=== PATIENT | male | born 1970 | race Caucasian/White ===

== ENCOUNTER 2020-11-12 12:00 | Inpatient (IN) ==
[2020-11-12] MEDS ORDERED: Melatonin 3 MG TABLET PO PRN (15:04)
[2020-11-12] MEDS ORDERED: Ondansetron 4 MG/2 ML VIAL IVP PRN (15:04)
[2020-11-12] MEDS ORDERED: *HR* Dextrose 50 % in Water (Vial) 50 ML VIAL IVP PRN (15:12)
[2020-11-12] MEDS ORDERED: Dextrose Gel 15 GM/37.5 ML TUBE PO PRN ×2 (15:12)
[2020-11-12] MEDS ORDERED: D5% in Water 1,000 ML IVC PRN (15:12)
[2020-11-12] MEDS: Insulin LISPRO 300 UNITS/3 ML VIAL SUBQ SCH ×2 (16:29→20:48)
[2020-11-12] MEDS: Gabapentin 300 MG CAPSULE PO SCH (20:48)
[2020-11-12] MEDS: Insulin DETEMIR 100 UNIT/ML X5UNITS SUBQ SCH (20:49)
[2020-11-12] MEDS: Benzonatate 100 MG CAPSULE PO PRN (21:58)
[2020-11-12] MEDS ORDERED: Furosemide 20 MG/2 ML VIAL IVP ONE (23:32)
[2020-11-13] MEDS: Insulin LISPRO 300 UNITS/3 ML VIAL SUBQ SCH ×4 (06:25→20:45)
[2020-11-13] MEDS: *HR* Enoxaparin 40 MG/0.4 ML SYRINGE SQ SCH (06:27)
[2020-11-13 06:33] LABS: Hematocrit 45.2 % (37.5-50.1); Hemoglobin 14.6 g/dL (12.9-16.9); Mean Corpuscular HGB Conc 32.3 g/dL (31.6-35.5); Mean Corpuscular Hemoglobin 26.9 pg (28.0-33.3); Mean Corpuscular Volume 83.2 fL (83.0-100.0); Mean Platelet Volume 10.3 fL (9.4-12.4); Platelet Count 249 K/mcL (140-400); Red Blood Count 5.43 M/mcL (4.19-5.50); Red Cell Distribution Width 14.4 % (11.5-14.5); White Blood Count 5.8 K/mcL (4.3-11.1)
[2020-11-13 06:58] LABS: BUN/Creatinine Ratio 21 (6-26); Blood Urea Nitrogen 26 mg/dL (6-20); Carbon Dioxide 24 mEq/L (23-29); Chloride 99 mEq/L (98-107); Glucose 149 mg/dL (70-105); Lactate Dehydrogenase 429 Units/L (140-271); Magnesium 1.9 mg/dL (1.6-2.6); Osmolality,Calculated 286 (280-300); Potassium 4.6 mEq/L (3.5-5.1); Sodium 134 mEq/L (136-145); eGFR For African Americans > 60 (> 60); eGFR For Non-African Americans > 60 (> 60)
[2020-11-13 07:10] LABS: Ferritin 317 ng/mL (20-250)
[2020-11-13] MEDS: Gabapentin 300 MG CAPSULE PO SCH ×3 (08:18→20:44)
[2020-11-13] MEDS: Acetaminophen 325 MG TABLET PO PRN ×2 (08:19→20:44)
[2020-11-13] MEDS: Aspirin 81 MG TAB.CHEW PO SCH (08:19)
[2020-11-13 08:28] LABS: C-Reactive Protein 76 mg/L (Less than 10)
[2020-11-13] MEDS ORDERED: Dexamethasone Sodium Phos/PF 10 MG/ML VIAL IVP SCH ×2 (09:00)
[2020-11-13] MEDS ORDERED: hydroCHLOROthiazide 25 MG TABLET PO SCH (09:00)
[2020-11-13 10:10] LABS: Estimated Average Glucose 217 mg/dl; Hemoglobin A1C 9.2 %
[2020-11-13] MEDS ORDERED: Remdesivir 200 MG in 0.9 % Sodium Chloride 100 ML IVPB ONE (12:24)
[2020-11-13 13:06] LABS: Alanine Aminotransferase 24 Units/L (7-52); Albumin 3.7 g/dL (3.5-5.7); Albumin/Globulin Ratio 1.1 (1.1-2.2); Alkaline Phosphatase 52 Units/L (34-104); Aspartate Amino Transferase 34 Units/L (13-39); Bilirubin,Indirect 0.3 mg/dL (0.0-1.0); Bilirubin,Total 0.3 mg/dL (0.3-1.0); Globulin 3.5 g/dL (2.4-3.5); Total Protein 7.2 g/dL (6.4-8.9)
[2020-11-13] MEDS: Furosemide 20 MG/2 ML VIAL IVP SCH ×2 (13:07→20:44)
[2020-11-13] MEDS ORDERED: TOCILIZUMAB 810 MG in 0.9 % Sodium Chloride 100 ML IVPB ONE (16:30)
[2020-11-13] MEDS: Benzonatate 100 MG CAPSULE PO PRN (20:44)
[2020-11-13] MEDS: Insulin DETEMIR 100 UNIT/ML X5UNITS SUBQ SCH (20:45)
[2020-11-14 01:40] LABS: Hematocrit 44.5 % (37.5-50.1); Hemoglobin 14.4 g/dL (12.9-16.9); Mean Corpuscular HGB Conc 32.4 g/dL (31.6-35.5); Mean Corpuscular Hemoglobin 27.3 pg (28.0-33.3); Mean Corpuscular Volume 84.3 fL (83.0-100.0); Mean Platelet Volume 10.4 fL (9.4-12.4); Platelet Count 260 K/mcL (140-400); Red Blood Count 5.28 M/mcL (4.19-5.50); Red Cell Distribution Width 14.3 % (11.5-14.5); White Blood Count 2.5 K/mcL (4.3-11.1)
[2020-11-14 02:00] LABS: Alanine Aminotransferase 25 Units/L (7-52); Albumin 3.6 g/dL (3.5-5.7); Alkaline Phosphatase 53 Units/L (34-104); Aspartate Amino Transferase 26 Units/L (13-39); BUN/Creatinine Ratio 32 (6-26); Bilirubin,Total 0.3 mg/dL (0.3-1.0); Blood Urea Nitrogen 42 mg/dL (6-20); Carbon Dioxide 26 mEq/L (23-29); Chloride 98 mEq/L (98-107); Globulin 3.5 g/dL (2.4-3.5); Glucose 296 mg/dL (70-105); Osmolality,Calculated 299 (280-300); Sodium 134 mEq/L (136-145); Total Protein 7.1 g/dL (6.4-8.9); eGFR For African Americans > 60 (> 60); eGFR For Non-African Americans 58 (> 60)
[2020-11-14] MEDS: *HR* Enoxaparin 40 MG/0.4 ML SYRINGE SQ SCH (06:26)
[2020-11-14] MEDS: Insulin LISPRO 300 UNITS/3 ML VIAL SUBQ SCH ×5 (08:27→21:06)
[2020-11-14] MEDS: Gabapentin 300 MG CAPSULE PO SCH ×3 (09:44→21:06)
[2020-11-14] MEDS: Cholecalciferol (D-3) 1,000 UNIT (25MCG) TABLET PO SCH (09:44)
[2020-11-14] MEDS: Aspirin 81 MG TAB.CHEW PO SCH (09:44)
[2020-11-14] MEDS: Insulin DETEMIR 100 UNIT/ML X5UNITS SUBQ SCH ×2 (09:46→21:06)
[2020-11-14 10:26] LABS: VBG HCO3 28 mEq/L (21-27); VBG PCO2 50 mmHg (41-51); VBG PH 7.36 pH Units (7.32-7.42); VBG PO2 50 mmHg (25-50)
[2020-11-14] MEDS: Remdesivir 100 MG in 0.9 % Sodium Chloride 100 ML IVPB SCH (12:49)
[2020-11-14] MEDS: Benzonatate 100 MG CAPSULE PO PRN (22:59)
[2020-11-15] MEDS: *HR* Enoxaparin 40 MG/0.4 ML SYRINGE SQ SCH (05:25)
[2020-11-15 07:12] LABS: Hematocrit 46.4 % (37.5-50.1); Hemoglobin 14.5 g/dL (12.9-16.9); Mean Corpuscular HGB Conc 31.3 g/dL (31.6-35.5); Mean Corpuscular Hemoglobin 26.4 pg (28.0-33.3); Mean Corpuscular Volume 84.5 fL (83.0-100.0); Mean Platelet Volume 10.5 fL (9.4-12.4); Platelet Count 298 K/mcL (140-400); Red Blood Count 5.49 M/mcL (4.19-5.50); Red Cell Distribution Width 13.9 % (11.5-14.5); White Blood Count 3.7 K/mcL (4.3-11.1)
[2020-11-15] MEDS: Insulin LISPRO 300 UNITS/3 ML VIAL SUBQ SCH ×4 (08:39→22:44)
[2020-11-15] MEDS: Aspirin 81 MG TAB.CHEW PO SCH (09:48)
[2020-11-15] MEDS: Cholecalciferol (D-3) 1,000 UNIT (25MCG) TABLET PO SCH (09:48)
[2020-11-15] MEDS: Gabapentin 300 MG CAPSULE PO SCH ×3 (09:48→22:44)
[2020-11-15] MEDS: Insulin DETEMIR 100 UNIT/ML X5UNITS SUBQ SCH (10:01)
[2020-11-15 10:27] LABS: Alanine Aminotransferase 26 Units/L (7-52); Albumin 3.6 g/dL (3.5-5.7); Albumin/Globulin Ratio 1.1 (1.1-2.2); Alkaline Phosphatase 55 Units/L (34-104); Aspartate Amino Transferase 26 Units/L (13-39); BUN/Creatinine Ratio 51 (6-26); Bilirubin,Total 0.4 mg/dL (0.3-1.0); Blood Urea Nitrogen 55 mg/dL (6-20); Calcium 9.1 mg/dL (8.6-10.3); Carbon Dioxide 24 mEq/L (23-29); Chloride 100 mEq/L (98-107); Globulin 3.3 g/dL (2.4-3.5); Glucose 268 mg/dL (70-105); Osmolality,Calculated 303 (280-300); Potassium 5.2 mEq/L (3.5-5.1); Sodium 134 mEq/L (136-145); Total Protein 6.9 g/dL (6.4-8.9); eGFR For African Americans > 60 (> 60); eGFR For Non-African Americans > 60 (> 60)
[2020-11-15] MEDS: Remdesivir 100 MG in 0.9 % Sodium Chloride 100 ML IVPB SCH (14:12)
[2020-11-15] MEDS ORDERED: Insulin DETEMIR 100 UNIT/ML X5UNITS SUBQ SCH (16:45)
[2020-11-16] MEDS: *HR* Enoxaparin 40 MG/0.4 ML SYRINGE SQ SCH (05:35)
[2020-11-16] MEDS: Insulin LISPRO 300 UNITS/3 ML VIAL SUBQ SCH ×4 (09:00→22:30)
[2020-11-16] MEDS: Cholecalciferol (D-3) 1,000 UNIT (25MCG) TABLET PO SCH (10:43)
[2020-11-16] MEDS: Gabapentin 300 MG CAPSULE PO SCH ×3 (10:44→22:31)
[2020-11-16] MEDS: Aspirin 81 MG TAB.CHEW PO SCH (10:44)
[2020-11-16] MEDS: Insulin DETEMIR 100 UNIT/ML X5UNITS SUBQ SCH ×2 (10:45→22:30)
[2020-11-16 12:30] LABS: Alanine Aminotransferase 29 Units/L (7-52); Albumin 3.5 g/dL (3.5-5.7); Albumin/Globulin Ratio 1.2 (1.1-2.2); Alkaline Phosphatase 62 Units/L (34-104); Aspartate Amino Transferase 22 Units/L (13-39); BUN/Creatinine Ratio 36 (6-26); Bilirubin,Direct 0.1 mg/dL (0.0-0.2); Bilirubin,Indirect 0.2 mg/dL (0.0-1.0); Bilirubin,Total 0.3 mg/dL (0.3-1.0); Blood Urea Nitrogen 45 mg/dL (6-20); Calcium 9.4 mg/dL (8.6-10.3); Carbon Dioxide 30 mEq/L (23-29); Chloride 100 mEq/L (98-107); Globulin 2.9 g/dL (2.4-3.5); Glucose 229 mg/dL (70-105); Osmolality,Calculated 301 (280-300); Potassium 5.3 mEq/L (3.5-5.1); Sodium 136 mEq/L (136-145); Total Protein 6.4 g/dL (6.4-8.9); eGFR For African Americans > 60 (> 60); eGFR For Non-African Americans > 60 (> 60)
[2020-11-16] MEDS: Remdesivir 100 MG in 0.9 % Sodium Chloride 100 ML IVPB SCH (13:51)
[2020-11-16] MEDS ORDERED: Insulin LISPRO 300 UNITS/3 ML VIAL SUBQ ONE (20:38)
[2020-11-17] MEDS: *HR* Enoxaparin 40 MG/0.4 ML SYRINGE SQ SCH (05:43)
[2020-11-17] MEDS: Insulin LISPRO 300 UNITS/3 ML VIAL SUBQ SCH ×4 (09:36→22:07)
[2020-11-17] MEDS: Gabapentin 300 MG CAPSULE PO SCH ×3 (09:38→22:07)
[2020-11-17] MEDS: Aspirin 81 MG TAB.CHEW PO SCH (09:38)
[2020-11-17] MEDS: Insulin DETEMIR 100 UNIT/ML X5UNITS SUBQ SCH ×2 (09:39→22:07)
[2020-11-17] MEDS: Cholecalciferol (D-3) 1,000 UNIT (25MCG) TABLET PO SCH (09:40)
[2020-11-17] MEDS ORDERED: Furosemide 40 MG/4 ML VIAL IVP SCH (11:00)
[2020-11-17] MEDS: Remdesivir 100 MG in 0.9 % Sodium Chloride 100 ML IVPB SCH (12:16)
[2020-11-17 12:36] LABS: Alanine Aminotransferase 29 Units/L (7-52); Albumin 3.4 g/dL (3.5-5.7); Albumin/Globulin Ratio 1.3 (1.1-2.2); Alkaline Phosphatase 75 Units/L (34-104); Aspartate Amino Transferase 21 Units/L (13-39); BUN/Creatinine Ratio 39 (6-26); Bilirubin,Direct 0.1 mg/dL (0.0-0.2); Bilirubin,Indirect 0.3 mg/dL (0.0-1.0); Bilirubin,Total 0.4 mg/dL (0.3-1.0); Blood Urea Nitrogen 43 mg/dL (6-20); Calcium 9.3 mg/dL (8.6-10.3); Carbon Dioxide 30 mEq/L (23-29); Chloride 101 mEq/L (98-107); Globulin 2.7 g/dL (2.4-3.5); Glucose 258 mg/dL (70-105); Osmolality,Calculated 302 (280-300); Potassium 4.9 mEq/L (3.5-5.1); Sodium 136 mEq/L (136-145); Total Protein 6.1 g/dL (6.4-8.9); eGFR For African Americans > 60 (> 60); eGFR For Non-African Americans > 60 (> 60)
[2020-11-17] MEDS: *HR* Enoxaparin 100 MG/ML SYRINGE SQ SCH (16:51)
[2020-11-18] MEDS: *HR* Enoxaparin 100 MG/ML SYRINGE SQ SCH ×2 (06:16→16:23)
[2020-11-18 08:01] LABS: Hemoglobin 15.8 g/dL (12.9-16.9); Mean Corpuscular HGB Conc 32.9 g/dL (31.6-35.5); Mean Corpuscular Hemoglobin 27.4 pg (28.0-33.3); Mean Corpuscular Volume 83.3 fL (83.0-100.0); Mean Platelet Volume 10.4 fL (9.4-12.4); Platelet Count 332 K/mcL (140-400); Red Blood Count 5.76 M/mcL (4.19-5.50); Red Cell Distribution Width 13.4 % (11.5-14.5)
[2020-11-18] MEDS ORDERED: Isovue-370 500 ML BOTTLE IVP ONE (08:17)
[2020-11-18 08:23] LABS: Alanine Aminotransferase 30 Units/L (7-52); Albumin 3.4 g/dL (3.5-5.7); Albumin/Globulin Ratio 1.2 (1.1-2.2); Alkaline Phosphatase 84 Units/L (34-104); Aspartate Amino Transferase 19 Units/L (13-39); BUN/Creatinine Ratio 41 (6-26); Bilirubin,Direct 0.1 mg/dL (0.0-0.2); Bilirubin,Indirect 0.3 mg/dL (0.0-1.0); Bilirubin,Total 0.4 mg/dL (0.3-1.0); Blood Urea Nitrogen 43 mg/dL (6-20); Calcium 9.4 mg/dL (8.6-10.3); Carbon Dioxide 26 mEq/L (23-29); Chloride 101 mEq/L (98-107); Globulin 2.8 g/dL (2.4-3.5); Glucose 158 mg/dL (70-105); Magnesium 2.1 mg/dL (1.6-2.6); Osmolality,Calculated 294 (280-300); Sodium 135 mEq/L (136-145); Total Protein 6.2 g/dL (6.4-8.9); eGFR For African Americans > 60 (> 60); eGFR For Non-African Americans > 60 (> 60)
[2020-11-18 09:02] LABS: White Blood Count 6.3 K/mcL (4.3-11.1)
[2020-11-18] MEDS: Dexamethasone Sodium Phos/PF 10 MG/ML VIAL IVP SCH (10:22)
[2020-11-18] MEDS: Aspirin 81 MG TAB.CHEW PO SCH (10:22)
[2020-11-18] MEDS: Cholecalciferol (D-3) 1,000 UNIT (25MCG) TABLET PO SCH (10:22)
[2020-11-18] MEDS: amLODIPine 5 MG TABLET PO SCH (10:22)
[2020-11-18] MEDS: Gabapentin 300 MG CAPSULE PO SCH ×3 (10:22→20:48)
[2020-11-18] MEDS: Insulin DETEMIR 100 UNIT/ML X5UNITS SUBQ SCH ×2 (10:35→21:02)
[2020-11-18] MEDS: Insulin LISPRO 300 UNITS/3 ML VIAL SUBQ SCH ×4 (10:36→21:02)
[2020-11-18] MEDS: Benzonatate 100 MG CAPSULE PO PRN (20:48)
[2020-11-19] MEDS: *HR* Enoxaparin 100 MG/ML SYRINGE SQ SCH ×2 (05:39→18:16)
[2020-11-19] MEDS: Insulin LISPRO 300 UNITS/3 ML VIAL SUBQ SCH ×4 (08:05→21:04)
[2020-11-19] MEDS: Aspirin 81 MG TAB.CHEW PO SCH (09:03)
[2020-11-19] MEDS: Insulin DETEMIR 100 UNIT/ML X5UNITS SUBQ SCH ×2 (09:03→21:05)
[2020-11-19] MEDS: Gabapentin 300 MG CAPSULE PO SCH ×3 (09:03→21:05)
[2020-11-19] MEDS: amLODIPine 5 MG TABLET PO SCH (09:03)
[2020-11-19] MEDS: Cholecalciferol (D-3) 1,000 UNIT (25MCG) TABLET PO SCH (09:04)
[2020-11-19] MEDS: Dexamethasone Sodium Phos/PF 10 MG/ML VIAL IVP SCH (09:04)
[2020-11-19] MEDS ORDERED: Chloraseptic Spray 177 ML BOTTLE MM PRN (11:17)
[2020-11-19] MEDS: Furosemide 20 MG/2 ML VIAL IVP SCH (13:24)
[2020-11-19] MEDS: Saline Nasal Spray 44 ML BOTTLE NS PRN (13:25)
[2020-11-20 01:24] LABS: Hematocrit 48.9 % (37.5-50.1); Hemoglobin 16.2 g/dL (12.9-16.9); Mean Corpuscular HGB Conc 33.1 g/dL (31.6-35.5); Mean Corpuscular Hemoglobin 26.9 pg (28.0-33.3); Mean Corpuscular Volume 81.2 fL (83.0-100.0); Mean Platelet Volume 10.2 fL (9.4-12.4); Platelet Count 395 K/mcL (140-400); Red Blood Count 6.02 M/mcL (4.19-5.50); Red Cell Distribution Width 13.3 % (11.5-14.5); White Blood Count 7.9 K/mcL (4.3-11.1)
[2020-11-20 01:44] LABS: BUN/Creatinine Ratio 38 (6-26); Blood Urea Nitrogen 36 mg/dL (6-20); Carbon Dioxide 21 mEq/L (23-29); Chloride 100 mEq/L (98-107); Glucose 207 mg/dL (70-105); Magnesium 1.9 mg/dL (1.6-2.6); Osmolality,Calculated 288 (280-300); Phosphorous 4.2 mg/dL (2.7-4.5); Potassium 4.3 mEq/L (3.5-5.1); Sodium 132 mEq/L (136-145); eGFR For African Americans > 60 (> 60); eGFR For Non-African Americans > 60 (> 60)
[2020-11-20] MEDS: *HR* Enoxaparin 100 MG/ML SYRINGE SQ SCH ×2 (04:53→17:31)
[2020-11-20] MEDS: Insulin LISPRO 300 UNITS/3 ML VIAL SUBQ SCH ×4 (08:07→20:51)
[2020-11-20] MEDS: Dexamethasone Sodium Phos/PF 10 MG/ML VIAL IVP SCH (08:11)
[2020-11-20] MEDS: Furosemide 20 MG/2 ML VIAL IVP SCH (08:12)
[2020-11-20] MEDS: Insulin DETEMIR 100 UNIT/ML X5UNITS SUBQ SCH ×2 (08:12→20:51)
[2020-11-20] MEDS: Gabapentin 300 MG CAPSULE PO SCH ×3 (08:12→20:49)
[2020-11-20] MEDS: amLODIPine 5 MG TABLET PO SCH (08:12)
[2020-11-20] MEDS: Aspirin 81 MG TAB.CHEW PO SCH (08:12)
[2020-11-20] MEDS: Cholecalciferol (D-3) 1,000 UNIT (25MCG) TABLET PO SCH (08:12)
[2020-11-20] MEDS: Lidocaine Viscous Oral Soln 15 ML SOLUTION MM PRN ×2 (11:22→16:48)
[2020-11-20] MEDS: Menthol 1 EACH LOZENGE PO PRN (19:32)
[2020-11-21] MEDS: Menthol 1 EACH LOZENGE PO PRN ×4 (00:12→08:11)
[2020-11-21] MEDS: *HR* Enoxaparin 100 MG/ML SYRINGE SQ SCH ×2 (05:11→18:17)
[2020-11-21] MEDS: Insulin DETEMIR 100 UNIT/ML X5UNITS SUBQ SCH ×2 (07:53→20:57)
[2020-11-21] MEDS: Furosemide 20 MG/2 ML VIAL IVP SCH (07:54)
[2020-11-21] MEDS: Gabapentin 300 MG CAPSULE PO SCH ×3 (07:55→20:57)
[2020-11-21] MEDS: amLODIPine 5 MG TABLET PO SCH (07:55)
[2020-11-21] MEDS: Dexamethasone Sodium Phos/PF 10 MG/ML VIAL IVP SCH (07:55)
[2020-11-21] MEDS: Aspirin 81 MG TAB.CHEW PO SCH (07:55)
[2020-11-21] MEDS: Cholecalciferol (D-3) 1,000 UNIT (25MCG) TABLET PO SCH (07:56)
[2020-11-21] MEDS: Insulin LISPRO 300 UNITS/3 ML VIAL SUBQ SCH ×4 (07:56→20:57)
[2020-11-21] MEDS ORDERED: Isovue-370 500 ML BOTTLE IVP ONE (22:32)
[2020-11-21] MEDS ORDERED: Oxymetazoline Nasal SPRAY BOTTLE 15ML NS PRN (23:14)
[2020-11-21] MEDS ORDERED: Lido/Epi/Tetra Gel 2 ML SYRINGE TP ONE (23:31)
[2020-11-22] MEDS: *HR* Enoxaparin 100 MG/ML SYRINGE SQ SCH ×2 (05:09→18:00)
[2020-11-22] MEDS: Insulin LISPRO 300 UNITS/3 ML VIAL SUBQ SCH ×4 (07:27→20:00)
[2020-11-22 08:12] LABS: BUN/Creatinine Ratio 44 (6-26); Blood Urea Nitrogen 41 mg/dL (6-20); Calcium 9.2 mg/dL (8.6-10.3); Carbon Dioxide 25 mEq/L (23-29); Chloride 103 mEq/L (98-107); Glucose 84 mg/dL (70-105); Hemoglobin 16.4 g/dL (12.9-16.9); Magnesium 2.3 mg/dL (1.6-2.6); Mean Corpuscular HGB Conc 31.5 g/dL (31.6-35.5); Mean Corpuscular Volume 82.5 fL (83.0-100.0); Mean Platelet Volume 10.2 fL (9.4-12.4); Osmolality,Calculated 291 (280-300); Platelet Count 320 K/mcL (140-400); Potassium 4.4 mEq/L (3.5-5.1); Red Cell Distribution Width 13.6 % (11.5-14.5); Sodium 136 mEq/L (136-145); White Blood Count 8.2 K/mcL (4.3-11.1); eGFR For African Americans > 60 (> 60); eGFR For Non-African Americans > 60 (> 60)
[2020-11-22] MEDS: Gabapentin 300 MG CAPSULE PO SCH ×3 (08:25→20:07)
[2020-11-22] MEDS: Aspirin 81 MG TAB.CHEW PO SCH (08:25)
[2020-11-22] MEDS: Furosemide 20 MG/2 ML VIAL IVP SCH (08:26)
[2020-11-22] MEDS: Dexamethasone Sodium Phos/PF 10 MG/ML VIAL IVP SCH (08:26)
[2020-11-22] MEDS: amLODIPine 5 MG TABLET PO SCH (08:26)
[2020-11-22] MEDS: Cholecalciferol (D-3) 1,000 UNIT (25MCG) TABLET PO SCH (08:27)
[2020-11-22] MEDS: Insulin DETEMIR 100 UNIT/ML X5UNITS SUBQ SCH ×2 (08:31→20:00)
[2020-11-23] MEDS: *HR* Enoxaparin 100 MG/ML SYRINGE SQ SCH ×2 (06:44→16:40)
[2020-11-23] MEDS: Insulin LISPRO 300 UNITS/3 ML VIAL SUBQ SCH ×5 (08:22→20:16)
[2020-11-23] MEDS: Cholecalciferol (D-3) 1,000 UNIT (25MCG) TABLET PO SCH (08:27)
[2020-11-23] MEDS: amLODIPine 5 MG TABLET PO SCH (08:27)
[2020-11-23] MEDS: Dexamethasone Sodium Phos/PF 10 MG/ML VIAL IVP SCH (08:28)
[2020-11-23] MEDS: Gabapentin 300 MG CAPSULE PO SCH ×3 (08:28→20:17)
[2020-11-23] MEDS: Furosemide 20 MG/2 ML VIAL IVP SCH (08:28)
[2020-11-23] MEDS: Insulin DETEMIR 100 UNIT/ML X5UNITS SUBQ SCH ×2 (08:31→20:16)
[2020-11-23] MEDS: Benzonatate 100 MG CAPSULE PO PRN (16:49)
[2020-11-24] MEDS: *HR* Enoxaparin 100 MG/ML SYRINGE SQ SCH ×2 (06:16→16:15)
[2020-11-24] MEDS: Insulin LISPRO 300 UNITS/3 ML VIAL SUBQ SCH ×3 (09:08→16:22)
[2020-11-24] MEDS: Gabapentin 300 MG CAPSULE PO SCH ×3 (09:21→21:25)
[2020-11-24] MEDS: Dexamethasone Sodium Phos/PF 10 MG/ML VIAL IVP SCH (09:21)
[2020-11-24] MEDS: Cholecalciferol (D-3) 1,000 UNIT (25MCG) TABLET PO SCH (09:21)
[2020-11-24] MEDS: amLODIPine 5 MG TABLET PO SCH (09:21)
[2020-11-24] MEDS: Furosemide 20 MG/2 ML VIAL IVP SCH (09:22)
[2020-11-24] MEDS: Insulin DETEMIR 100 UNIT/ML X5UNITS SUBQ SCH ×2 (09:50→21:25)
[2020-11-24] MEDS: Benzonatate 100 MG CAPSULE PO PRN (16:26)
[2020-11-24] MEDS: Saline Nasal Spray 44 ML BOTTLE NS PRN (21:24)
[2020-11-25 03:13] LABS: Hematocrit 45.4 % (37.5-50.1); Mean Corpuscular HGB Conc 32.6 g/dL (31.6-35.5); Mean Corpuscular Hemoglobin 26.5 pg (28.0-33.3); Mean Corpuscular Volume 81.4 fL (83.0-100.0); Mean Platelet Volume 10.6 fL (9.4-12.4); Platelet Count 271 K/mcL (140-400); Red Blood Count 5.58 M/mcL (4.19-5.50); Red Cell Distribution Width 13.2 % (11.5-14.5); White Blood Count 7.2 K/mcL (4.3-11.1)
[2020-11-25 03:19] LABS: Hemoglobin 14.8 g/dL (12.9-16.9)
[2020-11-25 03:26] LABS: VBG HCO3 26 mEq/L (21-27); VBG PCO2 43 mmHg (41-51); VBG PH 7.39 pH Units (7.32-7.42); VBG PO2 61 mmHg (25-50)
[2020-11-25 03:30] LABS: BUN/Creatinine Ratio 41 (6-26); Blood Urea Nitrogen 33 mg/dL (6-20); Calcium 8.9 mg/dL (8.6-10.3); Carbon Dioxide 27 mEq/L (23-29); Chloride 99 mEq/L (98-107); Glucose 229 mg/dL (70-105); Osmolality,Calculated 289 (280-300); Phosphorous 3.4 mg/dL (2.7-4.5); Sodium 132 mEq/L (136-145); eGFR For African Americans > 60 (> 60); eGFR For Non-African Americans > 60 (> 60)
[2020-11-25] MEDS: *HR* Enoxaparin 100 MG/ML SYRINGE SQ SCH ×2 (05:33→18:00)
[2020-11-25] MEDS: Insulin LISPRO 300 UNITS/3 ML VIAL SUBQ SCH ×4 (07:50→17:58)
[2020-11-25] MEDS: Gabapentin 300 MG CAPSULE PO SCH ×3 (07:51→20:59)
[2020-11-25] MEDS: amLODIPine 5 MG TABLET PO SCH (07:52)
[2020-11-25] MEDS: Cholecalciferol (D-3) 1,000 UNIT (25MCG) TABLET PO SCH (07:53)
[2020-11-25] MEDS: Insulin DETEMIR 100 UNIT/ML X5UNITS SUBQ SCH ×2 (07:55→21:00)
[2020-11-25] MEDS: Dexamethasone Sodium Phos/PF 10 MG/ML VIAL IVP SCH (07:56)
[2020-11-25] MEDS: Furosemide 20 MG/2 ML VIAL IVP SCH (07:57)
[2020-11-25] MEDS ORDERED: Lidocaine -MPF 1% 5 ML AMPUL INFILT ONE (18:42)
[2020-11-25] MEDS ORDERED: *HR* LORazepam 2 MG/ML VIAL IVP PRN (18:56)
[2020-11-26] MEDS: *HR* Enoxaparin 100 MG/ML SYRINGE SQ SCH ×2 (05:07→16:42)
[2020-11-26] MEDS: Dexmedetomidine HCl 400 MCG/100 ML MLS IVC SCH ×2 (07:56→23:49)
[2020-11-26] MEDS: Insulin DETEMIR 100 UNIT/ML X5UNITS SUBQ SCH (08:35)
[2020-11-26] MEDS: Furosemide 40 MG/4 ML VIAL IVP SCH ×2 (08:57→19:55)
[2020-11-26] MEDS: Dexamethasone Sodium Phos/PF 10 MG/ML VIAL IVP SCH (08:57)
[2020-11-26] MEDS: Gabapentin 300 MG CAPSULE PO SCH ×3 (11:28→19:55)
[2020-11-26] MEDS: amLODIPine 5 MG TABLET PO SCH (11:28)
[2020-11-26] MEDS: Insulin LISPRO 300 UNITS/3 ML VIAL SUBQ SCH ×6 (11:30→16:44)
[2020-11-26] MEDS: Ampicillin/Sulbactam 3,000 MG in 0.9 % Sodium Chloride Mini Bag 100 ML IVPB SCH ×3 (11:37→23:50)
[2020-11-26] MEDS: Pantoprazole 40 MG VIAL IVP SCH (11:37)
[2020-11-26] MEDS: Cholecalciferol (D-3) 1,000 UNIT (25MCG) TABLET PO SCH (11:38)
[2020-11-27] MEDS: Insulin DETEMIR 100 UNIT/ML X5UNITS SUBQ SCH ×3 (00:02→21:09)
[2020-11-27 04:04] LABS: VBG HCO3 29 mEq/L (21-27); VBG PCO2 50 mmHg (41-51); VBG PH 7.36 pH Units (7.32-7.42); VBG PO2 105 mmHg (25-50)
[2020-11-27 04:07] LABS: Hematocrit 44.2 % (37.5-50.1); Hemoglobin 14.5 g/dL (12.9-16.9); Mean Corpuscular HGB Conc 32.8 g/dL (31.6-35.5); Mean Corpuscular Volume 82.3 fL (83.0-100.0); Mean Platelet Volume 10.9 fL (9.4-12.4); Platelet Count 255 K/mcL (140-400); Red Blood Count 5.37 M/mcL (4.19-5.50); Red Cell Distribution Width 13.5 % (11.5-14.5); White Blood Count 6.8 K/mcL (4.3-11.1)
[2020-11-27 04:22] LABS: Alanine Aminotransferase 47 Units/L (7-52); Albumin 3.4 g/dL (3.5-5.7); Albumin/Globulin Ratio 1.4 (1.1-2.2); Alkaline Phosphatase 107 Units/L (34-104); Aspartate Amino Transferase 20 Units/L (13-39); BUN/Creatinine Ratio 40 (6-26); Bilirubin,Direct 0.1 mg/dL (0.0-0.2); Bilirubin,Indirect 0.4 mg/dL (0.0-1.0); Bilirubin,Total 0.5 mg/dL (0.3-1.0); Blood Urea Nitrogen 30 mg/dL (6-20); C-Reactive Protein < 5 mg/L (Less than 10); Calcium 8.7 mg/dL (8.6-10.3); Carbon Dioxide 28 mEq/L (23-29); Chloride 97 mEq/L (98-107); Globulin 2.4 g/dL (2.4-3.5); Glucose 271 mg/dL (70-105); Osmolality,Calculated 290 (280-300); Phosphorous 3.5 mg/dL (2.7-4.5); Potassium 4.2 mEq/L (3.5-5.1); Sodium 132 mEq/L (136-145); Total Protein 5.8 g/dL (6.4-8.9); eGFR For African Americans > 60 (> 60); eGFR For Non-African Americans > 60 (> 60)
[2020-11-27] MEDS: Ampicillin/Sulbactam 3,000 MG in 0.9 % Sodium Chloride Mini Bag 100 ML IVPB SCH ×3 (06:44→17:29)
[2020-11-27] MEDS: *HR* Enoxaparin 100 MG/ML SYRINGE SQ SCH ×2 (06:45→17:34)
[2020-11-27] MEDS: Insulin LISPRO 300 UNITS/3 ML VIAL SUBQ SCH ×6 (09:11→17:34)
[2020-11-27] MEDS: Pantoprazole 40 MG VIAL IVP SCH (09:17)
[2020-11-27] MEDS: Furosemide 40 MG/4 ML VIAL IVP SCH ×2 (09:17→21:08)
[2020-11-27] MEDS: Dexamethasone Sodium Phos/PF 10 MG/ML VIAL IVP SCH (09:18)
[2020-11-27] MEDS: amLODIPine 5 MG TABLET PO SCH (09:19)
[2020-11-27] MEDS: Cholecalciferol (D-3) 1,000 UNIT (25MCG) TABLET PO SCH (09:19)
[2020-11-27] MEDS: Gabapentin 300 MG CAPSULE PO SCH ×3 (09:19→21:08)
[2020-11-27] MEDS: Dexmedetomidine HCl 400 MCG/100 ML MLS IVC SCH (16:00)
[2020-11-28] MEDS: Ampicillin/Sulbactam 3,000 MG in 0.9 % Sodium Chloride Mini Bag 100 ML IVPB SCH ×4 (03:09→18:04)
[2020-11-28] MEDS: Dexmedetomidine HCl 400 MCG/100 ML MLS IVC SCH ×2 (03:10→12:48)
[2020-11-28] MEDS: *HR* Enoxaparin 100 MG/ML SYRINGE SQ SCH ×2 (05:27→18:08)
[2020-11-28 06:01] LABS: Basophils % 0.3 %; Eosinophils # 0.2 K/mcL (0.0-0.6); Eosinophils % 2.3 %; Hematocrit 44.8 % (37.5-50.1); Hemoglobin 14.8 g/dL (12.9-16.9); Immature Granulocytes % 0.7 % (0-4); Lymphocytes # 1.5 K/mcL (0.6-4.6); Mean Corpuscular Hemoglobin 27.1 pg (28.0-33.3); Mean Corpuscular Volume 82.1 fL (83.0-100.0); Mean Platelet Volume 10.7 fL (9.4-12.4); Monocytes # 0.3 K/mcL (0.0-1.3); Monocytes % 4.5 %; Neutrophils # 5.2 K/mcL (1.6-8.9); Platelet Count 238 K/mcL (140-400); Red Blood Count 5.46 M/mcL (4.19-5.50); Red Cell Distribution Width 13.6 % (11.5-14.5); Segmented Neutrophils % 72.2 %; White Blood Count 7.3 K/mcL (4.3-11.1)
[2020-11-28 06:14] LABS: BUN/Creatinine Ratio 40 (6-26); Blood Urea Nitrogen 34 mg/dL (6-20); Calcium 9.2 mg/dL (8.6-10.3); Carbon Dioxide 31 mEq/L (23-29); Chloride 99 mEq/L (98-107); Glucose 197 mg/dL (70-105); Osmolality,Calculated 293 (280-300); Potassium 4.3 mEq/L (3.5-5.1); Sodium 135 mEq/L (136-145); eGFR For African Americans > 60 (> 60); eGFR For Non-African Americans > 60 (> 60)
[2020-11-28] MEDS: Cholecalciferol (D-3) 1,000 UNIT (25MCG) TABLET PO SCH (08:11)
[2020-11-28] MEDS: Gabapentin 300 MG CAPSULE PO SCH ×3 (08:12→20:38)
[2020-11-28] MEDS: Insulin DETEMIR 100 UNIT/ML X5UNITS SUBQ SCH ×2 (08:13→20:38)
[2020-11-28] MEDS: Insulin LISPRO 300 UNITS/3 ML VIAL SUBQ SCH ×6 (08:14→17:17)
[2020-11-28] MEDS: Furosemide 40 MG/4 ML VIAL IVP SCH ×2 (08:16→20:38)
[2020-11-28] MEDS: Pantoprazole 40 MG VIAL IVP SCH (08:18)
[2020-11-28] MEDS: Acetaminophen 325 MG TABLET PO PRN ×3 (08:31→21:34)
[2020-11-29] MEDS: Dexmedetomidine HCl 400 MCG/100 ML MLS IVC SCH ×2 (01:11→15:34)
[2020-11-29] MEDS: *HR* Enoxaparin 100 MG/ML SYRINGE SQ SCH ×2 (05:18→16:53)
[2020-11-29 06:28] LABS: Basophils % 0.3 %; Eosinophils # 0.2 K/mcL (0.0-0.6); Eosinophils % 3.3 %; Hematocrit 44.4 % (37.5-50.1); Hemoglobin 14.8 g/dL (12.9-16.9); Immature Granulocytes % 0.7 % (0-4); Lymphocytes # 1.3 K/mcL (0.6-4.6); Lymphocytes % 18.5 %; Mean Corpuscular HGB Conc 33.3 g/dL (31.6-35.5); Mean Corpuscular Hemoglobin 27.5 pg (28.0-33.3); Mean Corpuscular Volume 82.4 fL (83.0-100.0); Mean Platelet Volume 11.1 fL (9.4-12.4); Monocytes # 0.3 K/mcL (0.0-1.3); Monocytes % 4.5 %; Neutrophils # 5.2 K/mcL (1.6-8.9); Platelet Count 227 K/mcL (140-400); Red Blood Count 5.39 M/mcL (4.19-5.50); Red Cell Distribution Width 13.7 % (11.5-14.5); Segmented Neutrophils % 72.7 %; White Blood Count 7.2 K/mcL (4.3-11.1)
[2020-11-29 07:15] LABS: BUN/Creatinine Ratio 44 (6-26); Blood Urea Nitrogen 35 mg/dL (6-20); Calcium 9.2 mg/dL (8.6-10.3); Carbon Dioxide 28 mEq/L (23-29); Chloride 98 mEq/L (98-107); Glucose 151 mg/dL (70-105); Osmolality,Calculated 291 (280-300); Potassium 3.6 mEq/L (3.5-5.1); Sodium 135 mEq/L (136-145); eGFR For African Americans > 60 (> 60); eGFR For Non-African Americans > 60 (> 60)
[2020-11-29] MEDS: Furosemide 40 MG/4 ML VIAL IVP SCH ×2 (09:01→23:42)
[2020-11-29] MEDS: Insulin DETEMIR 100 UNIT/ML X5UNITS SUBQ SCH ×2 (09:02→23:42)
[2020-11-29] MEDS: Cholecalciferol (D-3) 1,000 UNIT (25MCG) TABLET PO SCH (09:03)
[2020-11-29] MEDS: Pantoprazole 40 MG VIAL IVP SCH (09:03)
[2020-11-29] MEDS: Gabapentin 300 MG CAPSULE PO SCH ×3 (09:04→23:43)
[2020-11-29] MEDS: Insulin LISPRO 300 UNITS/3 ML VIAL SUBQ SCH ×6 (09:12→17:00)
[2020-11-29] MEDS: Acetaminophen 325 MG TABLET PO PRN (09:14)
[2020-11-29] MEDS ORDERED: *HR* HYDROcodone/Acet 5/325 mg TABLET PO ONE (13:20)
[2020-11-29] MEDS ORDERED: Morphine Sulfate 2 MG/ML SYRINGE IVP PRN (22:11)
[2020-11-29] MEDS: Cisatracurium 200 MG in 0.9 % Sodium Chloride 180 ML IVC SCH (23:00)
[2020-11-29] MEDS: FentaNYL (PF) 1,000 MCG/100 ML IV.SOLN IVC SCH (23:00)
[2020-11-29] MEDS: Midazolam HCl 50 MG/100 ML IV.SOLN IVC SCH (23:17)
[2020-11-29 23:52] LABS: ABG Base Excess 0 mEq/L (-2 to 3); ABG HCO3 27 mEq/L (21-27); ABG Oxygen Saturation 94 % (95-98); ABG PCO2 56 mmHg (35-45); ABG PO2 81 mmHg (85-104); ABG TCO2 29 mEq/L (20-26); Blood Gas Modality ASSIST CONTROL; Blood Gas VT 500 cc
[2020-11-30] MEDS: Dexmedetomidine HCl 400 MCG/100 ML MLS IVC SCH ×3 (01:35→17:33)
[2020-11-30] MEDS: Artificial Tears SOLN 15 ML BOTTLE BOTH EYES SCH ×6 (01:57→20:04)
[2020-11-30 04:58] LABS: Basophils % 0.2 %; Eosinophils # 0.2 K/mcL (0.0-0.6); Eosinophils % 2.7 %; Hemoglobin 15.3 g/dL (12.9-16.9); Immature Granulocytes % 0.7 % (0-4); Lymphocytes # 0.7 K/mcL (0.6-4.6); Lymphocytes % 7.8 %; Mean Corpuscular HGB Conc 33.3 g/dL (31.6-35.5); Mean Corpuscular Hemoglobin 27.7 pg (28.0-33.3); Mean Corpuscular Volume 83.3 fL (83.0-100.0); Mean Platelet Volume 10.6 fL (9.4-12.4); Monocytes # 0.4 K/mcL (0.0-1.3); Monocytes % 4.3 %; Neutrophils # 7.4 K/mcL (1.6-8.9); Platelet Count 194 K/mcL (140-400); Red Blood Count 5.52 M/mcL (4.19-5.50); Red Cell Distribution Width 13.6 % (11.5-14.5); Segmented Neutrophils % 84.3 %; White Blood Count 8.8 K/mcL (4.3-11.1)
[2020-11-30] MEDS: *HR* Enoxaparin 100 MG/ML SYRINGE SQ SCH ×2 (05:56→06:52)
[2020-11-30 06:01] LABS: ABG Base Excess 3 mEq/L (-2 to 3); ABG HCO3 32 mEq/L (21-27); ABG Oxygen Saturation 90 % (95-98); ABG PCO2 66 mmHg (35-45); ABG PH 7.29 pH Units (7.32-7.45); ABG PO2 67 mmHg (85-104); ABG TCO2 34 mEq/L (20-26); Blood Gas Modality ASSIST CONTROL; Blood Gas VT 500 cc
[2020-11-30 07:07] LABS: Prothrombin Time 11.3 Seconds (9.4-12.1)
[2020-11-30] MEDS: Insulin LISPRO 300 UNITS/3 ML VIAL SUBQ SCH ×4 (07:53→16:58)
[2020-11-30] MEDS: Furosemide 40 MG/4 ML VIAL IVP SCH ×2 (07:54→20:04)
[2020-11-30] MEDS: Gabapentin 300 MG CAPSULE PO SCH ×3 (07:54→20:04)
[2020-11-30] MEDS: Pantoprazole 40 MG VIAL IVP SCH (07:54)
[2020-11-30] MEDS: Cholecalciferol (D-3) 1,000 UNIT (25MCG) TABLET PO SCH (07:54)
[2020-11-30] MEDS: Chlorhexidine Rinse 15 ML MOUTHWASH MM SCH ×2 (07:55→20:04)
[2020-11-30 08:00] LABS: Alanine Aminotransferase 30 Units/L (7-52); Albumin 3.4 g/dL (3.5-5.7); Albumin/Globulin Ratio 1.4 (1.1-2.2); Alkaline Phosphatase 98 Units/L (34-104); Aspartate Amino Transferase 21 Units/L (13-39); BUN/Creatinine Ratio 35 (6-26); Bilirubin,Direct 0.1 mg/dL (0.0-0.2); Bilirubin,Indirect 0.3 mg/dL (0.0-1.0); Bilirubin,Total 0.4 mg/dL (0.3-1.0); Blood Urea Nitrogen 25 mg/dL (6-20); Calcium 8.2 mg/dL (8.6-10.3); Carbon Dioxide 27 mEq/L (23-29); Chloride 92 mEq/L (98-107); Ferritin 259 ng/mL (20-250); Globulin 2.5 g/dL (2.4-3.5); Glucose 463 mg/dL (70-105); Lactate Dehydrogenase 432 Units/L (140-271); Osmolality,Calculated 285 (280-300); Potassium 4.7 mEq/L (3.5-5.1); Sodium 125 mEq/L (136-145); Total Protein 5.9 g/dL (6.4-8.9); eGFR For African Americans > 60 (> 60); eGFR For Non-African Americans > 60 (> 60)
[2020-11-30] MEDS: Cisatracurium 200 MG in 0.9 % Sodium Chloride 180 ML IVC SCH ×2 (08:25→19:19)
[2020-11-30] MEDS ORDERED: *HR* Midazolam HCl 5 MG/5 ML VIAL IVP ONE (08:26)
[2020-11-30] MEDS ORDERED: *HR* Succinylcholine 200 MG/10 ML VIAL IVP ONE (08:26)
[2020-11-30] MEDS ORDERED: *HR* Propofol 200 MG/20 ML VIAL IVP ONE (08:26)
[2020-11-30] MEDS: Norepinephrine 4 MG/254 ML IV.SOLN IVC SCH ×2 (09:47→13:00)
[2020-11-30] MEDS: Midazolam HCl 50 MG/100 ML IV.SOLN IVC SCH (11:59)
[2020-11-30] MEDS: Heparin 25,000UNIT/250ML 1/2NS 25,000 UNIT/250 ML IV.SOLN IVC SCH (14:57)
[2020-11-30 15:56] LABS: Hematocrit 43.8 % (37.5-50.1); Mean Corpuscular Hemoglobin 26.7 pg (28.0-33.3); Mean Corpuscular Volume 83.6 fL (83.0-100.0); Mean Platelet Volume 11.2 fL (9.4-12.4); Platelet Count 133 K/mcL (140-400); Red Blood Count 5.24 M/mcL (4.19-5.50); Red Cell Distribution Width 13.8 % (11.5-14.5); White Blood Count 9.8 K/mcL (4.3-11.1)
[2020-11-30 16:06] LABS: Heparin anti-factor XA UFH 0.33 IU/mL (0.30-0.70)
[2020-11-30 16:07] LABS: Prothrombin Time 11.2 Seconds (9.4-12.1)
[2020-11-30] MEDS: FentaNYL (PF) 1,000 MCG/100 ML IV.SOLN IVC SCH (16:31)
[2020-12-01] MEDS: Insulin LISPRO 300 UNITS/3 ML VIAL SUBQ SCH ×4 (00:35→21:26)
[2020-12-01] MEDS: Artificial Tears SOLN 15 ML BOTTLE BOTH EYES SCH ×6 (00:36→21:26)
[2020-12-01] MEDS: Midazolam HCl 50 MG/100 ML IV.SOLN IVC SCH ×2 (02:17→16:10)
[2020-12-01] MEDS: FentaNYL (PF) 1,000 MCG/100 ML IV.SOLN IVC SCH ×3 (02:18→20:47)
[2020-12-01] MEDS: Dexmedetomidine HCl 400 MCG/100 ML MLS IVC SCH ×3 (03:49→21:31)
[2020-12-01] MEDS: Cisatracurium 200 MG in 0.9 % Sodium Chloride 180 ML IVC SCH ×2 (05:02→16:10)
[2020-12-01 05:32] LABS: ABG Base Excess 3 mEq/L (-2 to 3); ABG HCO3 29 mEq/L (21-27); ABG Oxygen Saturation 89 % (95-98); ABG PCO2 47 mmHg (35-45); ABG PO2 58 mmHg (85-104); ABG TCO2 30 mEq/L (20-26); Blood Gas Modality ASSIST CONTROL; Blood Gas VT 450 cc
[2020-12-01 05:50] LABS: BUN/Creatinine Ratio 36 (6-26); Blood Urea Nitrogen 31 mg/dL (6-20); Calcium 8.3 mg/dL (8.6-10.3); Carbon Dioxide 29 mEq/L (23-29); Chloride 99 mEq/L (98-107); Glucose 192 mg/dL (70-105); Magnesium 1.7 mg/dL (1.6-2.6); Osmolality,Calculated 292 (280-300); Potassium 4.3 mEq/L (3.5-5.1); Sodium 135 mEq/L (136-145); eGFR For African Americans > 60 (> 60); eGFR For Non-African Americans > 60 (> 60)
[2020-12-01 05:58] LABS: Basophils % 0.3 %; Eosinophils # 0.3 K/mcL (0.0-0.6); Eosinophils % 3.6 %; Hematocrit 43.2 % (37.5-50.1); Hemoglobin 13.9 g/dL (12.9-16.9); Immature Granulocytes % 0.2 % (0-4); Lymphocytes % 11.1 %; Mean Corpuscular HGB Conc 32.2 g/dL (31.6-35.5); Mean Corpuscular Hemoglobin 27.4 pg (28.0-33.3); Monocytes # 0.4 K/mcL (0.0-1.3); Monocytes % 4.6 %; Neutrophils # 7.2 K/mcL (1.6-8.9); Platelet Count 162 K/mcL (140-400); Red Blood Count 5.08 M/mcL (4.19-5.50); Red Cell Distribution Width 13.8 % (11.5-14.5); Segmented Neutrophils % 80.2 %; White Blood Count 8.9 K/mcL (4.3-11.1)
[2020-12-01] MEDS: Furosemide 40 MG/4 ML VIAL IVP SCH ×2 (08:39→21:27)
[2020-12-01] MEDS: Chlorhexidine Rinse 15 ML MOUTHWASH MM SCH ×2 (08:40→21:26)
[2020-12-01] MEDS: Cholecalciferol (D-3) 1,000 UNIT (25MCG) TABLET PO SCH (08:40)
[2020-12-01] MEDS: Gabapentin 300 MG CAPSULE PO SCH ×3 (08:40→21:30)
[2020-12-01] MEDS: Pantoprazole 40 MG VIAL IVP SCH (08:40)
[2020-12-01] MEDS: Norepinephrine 4 MG/254 ML IV.SOLN IVC SCH ×2 (11:08→11:10)
[2020-12-01] MEDS: Heparin 25,000UNIT/250ML 1/2NS 25,000 UNIT/250 ML IV.SOLN IVC SCH (18:30)
[2020-12-02] MEDS: Artificial Tears SOLN 15 ML BOTTLE BOTH EYES PRN (00:38)
[2020-12-02] MEDS: Insulin LISPRO 300 UNITS/3 ML VIAL SUBQ SCH ×6 (00:38→23:24)
[2020-12-02] MEDS: Artificial Tears SOLN 15 ML BOTTLE BOTH EYES SCH ×7 (00:51→23:24)
[2020-12-02] MEDS ORDERED: Acetaminophen IV 500 MG/50 ML BAG IVPB ONE (00:54)
[2020-12-02 05:08] LABS: ABG Base Excess 3 mEq/L (-2 to 3); ABG HCO3 29 mEq/L (21-27); ABG Oxygen Saturation 96 % (95-98); ABG PCO2 45 mmHg (35-45); ABG PH 7.41 pH Units (7.32-7.45); ABG PO2 81 mmHg (85-104); ABG TCO2 30 mEq/L (20-26); Blood Gas VT 450 cc
[2020-12-02 06:07] LABS: Basophils % 0.3 %; Eosinophils # 0.2 K/mcL (0.0-0.6); Eosinophils % 3.1 %; Hematocrit 37.8 % (37.5-50.1); Immature Granulocytes % 0.4 % (0-4); Lymphocytes # 1.1 K/mcL (0.6-4.6); Lymphocytes % 15.4 %; Mean Corpuscular HGB Conc 31.2 g/dL (31.6-35.5); Mean Corpuscular Hemoglobin 26.8 pg (28.0-33.3); Mean Corpuscular Volume 85.7 fL (83.0-100.0); Mean Platelet Volume 10.9 fL (9.4-12.4); Monocytes # 0.4 K/mcL (0.0-1.3); Monocytes % 5.5 %; Neutrophils # 5.4 K/mcL (1.6-8.9); Platelet Count 103 K/mcL (140-400); Red Blood Count 4.41 M/mcL (4.19-5.50); Red Cell Distribution Width 13.7 % (11.5-14.5); Segmented Neutrophils % 75.3 %; White Blood Count 7.2 K/mcL (4.3-11.1)
[2020-12-02 06:10] LABS: Hemoglobin 11.8 g/dL (12.9-16.9)
[2020-12-02 06:22] LABS: BUN/Creatinine Ratio 37 (6-26); Blood Urea Nitrogen 33 mg/dL (6-20); Calcium 7.1 mg/dL (8.6-10.3); Carbon Dioxide 26 mEq/L (23-29); Chloride 100 mEq/L (98-107); Glucose 306 mg/dL (70-105); Magnesium 1.6 mg/dL (1.6-2.6); Osmolality,Calculated 295 (280-300); Potassium 3.5 mEq/L (3.5-5.1); Sodium 133 mEq/L (136-145); eGFR For African Americans > 60 (> 60); eGFR For Non-African Americans > 60 (> 60)
[2020-12-02] MEDS: Midazolam HCl 50 MG/100 ML IV.SOLN IVC SCH (06:53)
[2020-12-02] MEDS: Heparin 25,000UNIT/250ML 1/2NS 25,000 UNIT/250 ML IV.SOLN IVC SCH ×2 (07:35→23:27)
[2020-12-02] MEDS: Norepinephrine 4 MG/254 ML IV.SOLN IVC SCH ×4 (07:35→23:27)
[2020-12-02] MEDS: Pantoprazole 40 MG VIAL IVP SCH (08:53)
[2020-12-02] MEDS: Furosemide 40 MG/4 ML VIAL IVP SCH ×2 (08:53→20:24)
[2020-12-02] MEDS: Gabapentin 300 MG CAPSULE PO SCH ×3 (08:53→20:23)
[2020-12-02] MEDS: Cholecalciferol (D-3) 1,000 UNIT (25MCG) TABLET PO SCH (08:53)
[2020-12-02] MEDS: Chlorhexidine Rinse 15 ML MOUTHWASH MM SCH ×2 (08:53→20:24)
[2020-12-02] MEDS: FentaNYL (PF) 1,000 MCG/100 ML IV.SOLN IVC SCH ×2 (08:58→22:05)
[2020-12-02] MEDS: Dexmedetomidine HCl 400 MCG/100 ML MLS IVC SCH ×3 (09:41→22:05)
[2020-12-02] MEDS: Cisatracurium 200 MG in 0.9 % Sodium Chloride 180 ML IVC SCH ×2 (10:10→22:04)
[2020-12-02] MEDS ORDERED: Piperacillin/Tazobactam 3.375 GM in Water for inj. (sterile) 20 ML IVP ONE (15:55)
[2020-12-02] MEDS: Acetaminophen 325 MG TABLET PO PRN (16:23)
[2020-12-02] MEDS ORDERED: Piperacillin/Tazobactam 3.375 GM in 0.9 % Sodium Chloride Mini Bag 100 ML IVPB ONE (16:30)
[2020-12-02 17:04] LABS: Bilirubin,Urine Negative (Negative); Blood,Urine Large (Negative); Clarity,Urine Clear (Clear); Color,Urine Yellow (Yellow); Glucose,Urine (UA) 30 mg/dL (Normal); Ketones,Urine Trace mg/dL (Negative); Leukocyte Esterase,Urine Negative (Negative); Mucus,Urine Few per lpf (None-Few); Nitrite,Urine Negative (Negative); Protein,Urine 30 mg/dL (Neg-Trace); RBC,Urine 50-100 per hpf (0-3); Specific Gravity,Urine 1.029 (1.010-1.025); Squamous Epithelial Cell,Urine Few per hpf (None-Few); WBC,Urine 0-3 per hpf (0-3)
[2020-12-02 22:08] LABS: Hematocrit 43.3 % (37.5-50.1); Hemoglobin 13.8 g/dL (12.9-16.9)
[2020-12-02] MEDS: Piperacillin/Tazobactam 3.375 GM in 0.9 % Sodium Chloride Mini Bag 100 ML IVPB SCH (23:26)
[2020-12-03] MEDS: Insulin LISPRO 300 UNITS/3 ML VIAL SUBQ SCH ×6 (03:51→23:44)
[2020-12-03] MEDS: Artificial Tears SOLN 15 ML BOTTLE BOTH EYES SCH ×6 (03:51→23:37)
[2020-12-03] MEDS: Dexmedetomidine HCl 400 MCG/100 ML MLS IVC SCH ×4 (04:05→23:36)
[2020-12-03 04:34] LABS: BUN/Creatinine Ratio 44 (6-26); Blood Urea Nitrogen 43 mg/dL (6-20); Calcium 8.5 mg/dL (8.6-10.3); Carbon Dioxide 30 mEq/L (23-29); Chloride 101 mEq/L (98-107); Glucose 308 mg/dL (70-105); Magnesium 2.1 mg/dL (1.6-2.6); Osmolality,Calculated 304 (280-300); Potassium 4.1 mEq/L (3.5-5.1); Sodium 136 mEq/L (136-145); eGFR For African Americans > 60 (> 60); eGFR For Non-African Americans > 60 (> 60)
[2020-12-03 04:36] LABS: Basophils % 0.4 %; Eosinophils # 0.2 K/mcL (0.0-0.6); Eosinophils % 3.1 %; Hematocrit 42.9 % (37.5-50.1); Hemoglobin 13.3 g/dL (12.9-16.9); Immature Granulocytes % 0.4 % (0-4); Lymphocytes # 0.7 K/mcL (0.6-4.6); Lymphocytes % 10.9 %; Mean Corpuscular Hemoglobin 26.9 pg (28.0-33.3); Mean Corpuscular Volume 86.7 fL (83.0-100.0); Mean Platelet Volume 10.3 fL (9.4-12.4); Monocytes # 0.4 K/mcL (0.0-1.3); Monocytes % 6.6 %; Neutrophils # 5.2 K/mcL (1.6-8.9); Platelet Count 157 K/mcL (140-400); Red Blood Count 4.95 M/mcL (4.19-5.50); Red Cell Distribution Width 14.1 % (11.5-14.5); Segmented Neutrophils % 78.6 %; White Blood Count 6.7 K/mcL (4.3-11.1)
[2020-12-03 05:25] LABS: ABG Base Excess 5 mEq/L (-2 to 3); ABG HCO3 31 mEq/L (21-27); ABG Oxygen Saturation 91 % (95-98); ABG PCO2 53 mmHg (35-45); ABG PH 7.38 pH Units (7.32-7.45); ABG PO2 65 mmHg (85-104); ABG TCO2 33 mEq/L (20-26)
[2020-12-03] MEDS: FentaNYL (PF) 1,000 MCG/100 ML IV.SOLN IVC SCH ×3 (05:39→19:45)
[2020-12-03] MEDS: Cisatracurium 200 MG in 0.9 % Sodium Chloride 180 ML IVC SCH (06:56)
[2020-12-03] MEDS: Furosemide 40 MG/4 ML VIAL IVP SCH (08:10)
[2020-12-03] MEDS: Pantoprazole 40 MG VIAL IVP SCH (08:10)
[2020-12-03] MEDS: Chlorhexidine Rinse 15 ML MOUTHWASH MM SCH ×2 (08:10→19:42)
[2020-12-03] MEDS: Piperacillin/Tazobactam 3.375 GM in 0.9 % Sodium Chloride Mini Bag 100 ML IVPB SCH ×3 (08:11→23:37)
[2020-12-03] MEDS: Midazolam HCl 50 MG/100 ML IV.SOLN IVC SCH ×2 (08:12→19:45)
[2020-12-03] MEDS: Cholecalciferol (D-3) 1,000 UNIT (25MCG) TABLET GTUBE SCH (10:26)
[2020-12-03] MEDS: Gabapentin 300 MG CAPSULE GTUBE SCH ×3 (10:26→19:42)
[2020-12-03] MEDS: Insulin DETEMIR 100 UNIT/ML X5UNITS SUBQ SCH (19:43)
[2020-12-03] MEDS: Norepinephrine 4 MG/254 ML IV.SOLN IVC SCH (20:19)
[2020-12-04] MEDS: *HR* Heparin 5,000 UNIT/ML VIAL IVP PRN (01:15)
[2020-12-04] MEDS: *HR* Alteplase (Cathflo) 2 MG VIAL IVP PRN (01:45)
[2020-12-04] MEDS ORDERED: Water for inj. (sterile) 10 ML ONE (01:47)
[2020-12-04] MEDS: FentaNYL (PF) 1,000 MCG/100 ML IV.SOLN IVC SCH ×4 (02:41→23:46)
[2020-12-04] MEDS: Artificial Tears SOLN 15 ML BOTTLE BOTH EYES SCH ×6 (03:56→23:48)
[2020-12-04] MEDS: Cisatracurium 200 MG in 0.9 % Sodium Chloride 180 ML IVC SCH ×2 (04:05→15:45)
[2020-12-04 04:33] LABS: Basophils % 0.5 %; Eosinophils # 0.3 K/mcL (0.0-0.6); Eosinophils % 4.7 %; Hematocrit 41.6 % (37.5-50.1); Hemoglobin 12.8 g/dL (12.9-16.9); Immature Granulocytes % 0.3 % (0-4); Lymphocytes # 1.2 K/mcL (0.6-4.6); Lymphocytes % 18.4 %; Mean Corpuscular HGB Conc 30.8 g/dL (31.6-35.5); Mean Corpuscular Hemoglobin 26.9 pg (28.0-33.3); Mean Corpuscular Volume 87.4 fL (83.0-100.0); Mean Platelet Volume 10.6 fL (9.4-12.4); Monocytes # 0.5 K/mcL (0.0-1.3); Monocytes % 7.2 %; Neutrophils # 4.4 K/mcL (1.6-8.9); Platelet Count 134 K/mcL (140-400); Red Blood Count 4.76 M/mcL (4.19-5.50); Segmented Neutrophils % 68.9 %; White Blood Count 6.4 K/mcL (4.3-11.1)
[2020-12-04 04:49] LABS: BUN/Creatinine Ratio 40 (6-26); Blood Urea Nitrogen 34 mg/dL (6-20); Calcium 8.7 mg/dL (8.6-10.3); Carbon Dioxide 31 mEq/L (23-29); Chloride 104 mEq/L (98-107); Glucose 233 mg/dL (70-105); Magnesium 2.2 mg/dL (1.6-2.6); Osmolality,Calculated 305 (280-300); Phosphorous 2.1 mg/dL (2.7-4.5); Potassium 3.6 mEq/L (3.5-5.1); Sodium 140 mEq/L (136-145); eGFR For African Americans > 60 (> 60); eGFR For Non-African Americans > 60 (> 60)
[2020-12-04 04:51] LABS: VBG Ionized Calcium 1.19 mmol/L (1.15-1.35)
[2020-12-04] MEDS: Insulin LISPRO 300 UNITS/3 ML VIAL SUBQ SCH ×5 (04:53→20:23)
[2020-12-04 05:33] LABS: ABG Base Excess 5 mEq/L (-2 to 3); ABG HCO3 31 mEq/L (21-27); ABG Oxygen Saturation 90 % (95-98); ABG PCO2 50 mmHg (35-45); ABG PO2 59 mmHg (85-104); ABG TCO2 32 mEq/L (20-26); Blood Gas VT 450 cc
[2020-12-04] MEDS: Dexmedetomidine HCl 400 MCG/100 ML MLS IVC SCH ×3 (05:45→18:54)
[2020-12-04] MEDS: Heparin 25,000UNIT/250ML 1/2NS 25,000 UNIT/250 ML IV.SOLN IVC SCH (06:40)
[2020-12-04] MEDS: Norepinephrine 4 MG/254 ML IV.SOLN IVC SCH ×2 (07:52→07:53)
[2020-12-04] MEDS: Chlorhexidine Rinse 15 ML MOUTHWASH MM SCH ×2 (08:06→20:18)
[2020-12-04] MEDS: Piperacillin/Tazobactam 3.375 GM in 0.9 % Sodium Chloride Mini Bag 100 ML IVPB SCH ×2 (08:06→16:08)
[2020-12-04] MEDS: Pantoprazole 40 MG VIAL IVP SCH (08:07)
[2020-12-04] MEDS: Gabapentin 300 MG CAPSULE GTUBE SCH ×3 (08:10→20:18)
[2020-12-04] MEDS: Cholecalciferol (D-3) 1,000 UNIT (25MCG) TABLET GTUBE SCH (08:10)
[2020-12-04] MEDS: Insulin DETEMIR 100 UNIT/ML X5UNITS SUBQ SCH ×2 (08:10→20:22)
[2020-12-04] MEDS ORDERED: Furosemide 40 MG/4 ML VIAL IVP SCH (09:00)
[2020-12-04] MEDS: Midazolam HCl 50 MG/100 ML IV.SOLN IVC SCH (11:02)
[2020-12-04] MEDS: Docusate Oral Soln 100 MG/10 ML UDC GTUBE SCH (20:18)
[2020-12-05] MEDS: Piperacillin/Tazobactam 3.375 GM in 0.9 % Sodium Chloride Mini Bag 100 ML IVPB SCH ×3 (00:41→15:21)
[2020-12-05] MEDS: Insulin LISPRO 300 UNITS/3 ML VIAL SUBQ SCH ×6 (00:42→20:50)
[2020-12-05] MEDS: FentaNYL (PF) 1,000 MCG/100 ML IV.SOLN IVC SCH ×4 (00:51→20:53)
[2020-12-05] MEDS: Dexmedetomidine HCl 400 MCG/100 ML MLS IVC SCH ×4 (00:51→22:35)
[2020-12-05] MEDS: Midazolam HCl 50 MG/100 ML IV.SOLN IVC SCH ×2 (00:52→15:05)
[2020-12-05] MEDS: Cisatracurium 200 MG in 0.9 % Sodium Chloride 180 ML IVC SCH ×2 (02:03→11:47)
[2020-12-05] MEDS: Norepinephrine 4 MG/254 ML IV.SOLN IVC SCH ×4 (02:04→11:52)
[2020-12-05 02:55] LABS: Heparin anti-factor XA UFH < 0.04 IU/mL (0.30-0.70); INR 1.2; Prothrombin Time 13.9 Seconds (9.4-12.1)
[2020-12-05 03:02] LABS: Activated Partial Thrombo Time 32.7 Seconds (26.0-36.0)
[2020-12-05 03:59] LABS: VBG Ionized Calcium 1.23 mmol/L (1.15-1.35)
[2020-12-05 04:00] LABS: Basophils % 0.2 %; Eosinophils # 0.5 K/mcL (0.0-0.6); Eosinophils % 8.7 %; Hematocrit 42.4 % (37.5-50.1); Immature Granulocytes % 0.4 % (0-4); Lymphocytes # 0.6 K/mcL (0.6-4.6); Lymphocytes % 11.8 %; Mean Corpuscular HGB Conc 30.9 g/dL (31.6-35.5); Mean Corpuscular Volume 87.4 fL (83.0-100.0); Mean Platelet Volume 10.6 fL (9.4-12.4); Monocytes # 0.3 K/mcL (0.0-1.3); Monocytes % 6.3 %; Neutrophils # 3.9 K/mcL (1.6-8.9); Platelet Count 140 K/mcL (140-400); Red Blood Count 4.85 M/mcL (4.19-5.50); Red Cell Distribution Width 14.2 % (11.5-14.5); Segmented Neutrophils % 72.6 %
[2020-12-05 04:02] LABS: Hemoglobin 13.1 g/dL (12.9-16.9); White Blood Count 5.4 K/mcL (4.3-11.1)
[2020-12-05 04:15] LABS: BUN/Creatinine Ratio 39 (6-26); Blood Urea Nitrogen 28 mg/dL (6-20); Calcium 8.7 mg/dL (8.6-10.3); Carbon Dioxide 32 mEq/L (23-29); Chloride 105 mEq/L (98-107); Glucose 229 mg/dL (70-105); Osmolality,Calculated 305 (280-300); Phosphorous 2.5 mg/dL (2.7-4.5); Potassium 3.7 mEq/L (3.5-5.1); Sodium 141 mEq/L (136-145); eGFR For African Americans > 60 (> 60); eGFR For Non-African Americans > 60 (> 60)
[2020-12-05] MEDS: *HR* Heparin 5,000 UNIT/ML VIAL IVP PRN ×2 (04:38→21:16)
[2020-12-05 04:40] LABS: ABG Base Excess 4 mEq/L (-2 to 3); ABG HCO3 31 mEq/L (21-27); ABG Oxygen Saturation 86 % (95-98); ABG PCO2 55 mmHg (35-45); ABG PH 7.35 pH Units (7.32-7.45); ABG PO2 55 mmHg (85-104); ABG TCO2 33 mEq/L (20-26); Blood Gas VT 450 cc
[2020-12-05] MEDS: Artificial Tears SOLN 15 ML BOTTLE BOTH EYES SCH ×5 (04:41→20:49)
[2020-12-05] MEDS: Heparin 25,000UNIT/250ML 1/2NS 25,000 UNIT/250 ML IV.SOLN IVC SCH ×2 (05:59→20:49)
[2020-12-05] MEDS: Docusate Oral Soln 100 MG/10 ML UDC GTUBE SCH ×2 (08:06→22:37)
[2020-12-05] MEDS: Chlorhexidine Rinse 15 ML MOUTHWASH MM SCH ×2 (08:06→20:51)
[2020-12-05] MEDS: Furosemide 40 MG/4 ML VIAL IVP SCH (08:07)
[2020-12-05] MEDS: Cholecalciferol (D-3) 1,000 UNIT (25MCG) TABLET GTUBE SCH (08:07)
[2020-12-05] MEDS: Gabapentin 300 MG CAPSULE GTUBE SCH (08:07)
[2020-12-05] MEDS: Insulin DETEMIR 100 UNIT/ML X5UNITS SUBQ SCH ×2 (08:07→20:51)
[2020-12-05] MEDS: Pantoprazole 40 MG VIAL IVP SCH (08:08)
[2020-12-06] MEDS: Norepinephrine 4 MG/254 ML IV.SOLN IVC SCH ×4 (00:23→21:28)
[2020-12-06] MEDS: Artificial Tears SOLN 15 ML BOTTLE BOTH EYES SCH ×7 (00:34→23:49)
[2020-12-06] MEDS: Piperacillin/Tazobactam 3.375 GM in 0.9 % Sodium Chloride Mini Bag 100 ML IVPB SCH ×4 (00:35→23:48)
[2020-12-06] MEDS: Insulin LISPRO 300 UNITS/3 ML VIAL SUBQ SCH ×7 (00:35→23:49)
[2020-12-06] MEDS: Heparin 25,000UNIT/250ML 1/2NS 25,000 UNIT/250 ML IV.SOLN IVC SCH (00:36)
[2020-12-06] MEDS: FentaNYL (PF) 1,000 MCG/100 ML IV.SOLN IVC SCH ×4 (01:14→20:29)
[2020-12-06] MEDS ORDERED: *HR* Metoprolol 5 MG/5 ML VIAL IVP ONE ×2 (02:10→11:45)
[2020-12-06 04:12] LABS: VBG Ionized Calcium 1.22 mmol/L (1.15-1.35)
[2020-12-06 04:17] LABS: ABG Base Excess 2 mEq/L (-2 to 3); ABG HCO3 30 mEq/L (21-27); ABG Oxygen Saturation 80 % (95-98); ABG PCO2 63 mmHg (35-45); ABG PH 7.29 pH Units (7.32-7.45); ABG PO2 51 mmHg (85-104); ABG TCO2 32 mEq/L (20-26); Blood Gas Modality ASSIST CONTROL; Blood Gas VT 450 cc
[2020-12-06 04:19] LABS: Basophils % 0.2 %; Eosinophils # 0.4 K/mcL (0.0-0.6); Eosinophils % 8.5 %; Hematocrit 40.3 % (37.5-50.1); Hemoglobin 12.2 g/dL (12.9-16.9); Immature Granulocytes % 0.4 % (0-4); Lymphocytes # 0.5 K/mcL (0.6-4.6); Lymphocytes % 11.6 %; Mean Corpuscular HGB Conc 30.3 g/dL (31.6-35.5); Mean Corpuscular Hemoglobin 26.8 pg (28.0-33.3); Mean Corpuscular Volume 88.6 fL (83.0-100.0); Mean Platelet Volume 11.1 fL (9.4-12.4); Monocytes # 0.3 K/mcL (0.0-1.3); Monocytes % 5.9 %; Neutrophils # 3.4 K/mcL (1.6-8.9); Platelet Count 139 K/mcL (140-400); Red Blood Count 4.55 M/mcL (4.19-5.50); Red Cell Distribution Width 14.6 % (11.5-14.5); Segmented Neutrophils % 73.4 %; White Blood Count 4.6 K/mcL (4.3-11.1)
[2020-12-06 04:33] LABS: Alanine Aminotransferase 18 Units/L (7-52); Albumin 2.8 g/dL (3.5-5.7); Albumin/Globulin Ratio 0.9 (1.1-2.2); Alkaline Phosphatase 55 Units/L (34-104); Aspartate Amino Transferase 10 Units/L (13-39); BUN/Creatinine Ratio 46 (6-26); Bilirubin,Total 0.3 mg/dL (0.3-1.0); Blood Urea Nitrogen 33 mg/dL (6-20); Calcium 8.9 mg/dL (8.6-10.3); Carbon Dioxide 31 mEq/L (23-29); Chloride 106 mEq/L (98-107); Globulin 3.2 g/dL (2.4-3.5); Glucose 219 mg/dL (70-105); Osmolality,Calculated 308 (280-300); Phosphorous 4.3 mg/dL (2.7-4.5); Potassium 4.4 mEq/L (3.5-5.1); Sodium 142 mEq/L (136-145); eGFR For African Americans > 60 (> 60); eGFR For Non-African Americans > 60 (> 60)
[2020-12-06] MEDS: Midazolam HCl 50 MG/100 ML IV.SOLN IVC SCH ×2 (04:35→19:20)
[2020-12-06] MEDS: Dexmedetomidine HCl 400 MCG/100 ML MLS IVC SCH ×4 (05:54→23:48)
[2020-12-06] MEDS: Docusate Oral Soln 100 MG/10 ML UDC GTUBE SCH ×2 (08:07→20:28)
[2020-12-06] MEDS: Chlorhexidine Rinse 15 ML MOUTHWASH MM SCH ×2 (08:07→20:28)
[2020-12-06] MEDS: Insulin DETEMIR 100 UNIT/ML X5UNITS SUBQ SCH ×2 (08:08→20:29)
[2020-12-06] MEDS: Pantoprazole 40 MG VIAL IVP SCH (08:08)
[2020-12-06] MEDS: Furosemide 40 MG/4 ML VIAL IVP SCH (08:08)
[2020-12-06] MEDS: Cholecalciferol (D-3) 1,000 UNIT (25MCG) TABLET GTUBE SCH (08:09)
[2020-12-06] MEDS: *HR* Heparin 5,000 UNIT/ML VIAL IVP PRN (11:34)
[2020-12-06] MEDS: *HR* Metoprolol 5 MG/5 ML VIAL IVP PRN ×2 (11:58→21:54)
[2020-12-06] MEDS: Nystatin POWDER 30 GM BOTTLE TP SCH ×2 (12:08→20:28)
[2020-12-06] MEDS ORDERED: Ipratropium 1 PUFF INHALER IH PRN (12:29)
[2020-12-06] MEDS ORDERED: Albumin 25% 25gram/100mL 0 GM/0 ML IV.SOLN ONE (12:42)
[2020-12-06] MEDS: Albumin 25% 12.5gm/50mL 12.5 GM/50 ML IV.SOLN IVPB SCH ×2 (13:22→20:27)
[2020-12-06] MEDS: Cisatracurium 200 MG in 0.9 % Sodium Chloride 180 ML IVC SCH ×2 (13:41→23:16)
[2020-12-06] MEDS: Furosemide 20 MG/2 ML VIAL IVP SCH ×2 (15:25→23:13)
[2020-12-06] MEDS: Ipratropium 1 PUFF INHALER IH SCH ×3 (15:42→23:54)
[2020-12-06] MEDS: Budesonide/Formoterol 160/4.5 1 PUFF INH IH SCH (19:25)
[2020-12-06] MEDS: Artificial Tears SOLN 15 ML BOTTLE BOTH EYES PRN (20:28)
[2020-12-07] MEDS: Heparin 25,000UNIT/250ML 1/2NS 25,000 UNIT/250 ML IV.SOLN IVC SCH ×2 (00:53→22:45)
[2020-12-07] MEDS: FentaNYL (PF) 1,000 MCG/100 ML IV.SOLN IVC SCH ×2 (02:41→10:06)
[2020-12-07] MEDS: Ipratropium 1 PUFF INHALER IH SCH ×6 (03:15→23:52)
[2020-12-07 03:51] LABS: ABG Base Excess 6 mEq/L (-2 to 3); ABG HCO3 36 mEq/L (21-27); ABG Oxygen Saturation 77 % (95-98); ABG PCO2 83 mmHg (35-45); ABG PH 7.25 pH Units (7.32-7.45); ABG PO2 51 mmHg (85-104); ABG TCO2 39 mEq/L (20-26); Blood Gas VT 450 cc
[2020-12-07] MEDS: *HR* Metoprolol 5 MG/5 ML VIAL IVP PRN ×4 (03:58→23:48)
[2020-12-07] MEDS: Insulin LISPRO 300 UNITS/3 ML VIAL SUBQ SCH ×6 (04:01→23:49)
[2020-12-07] MEDS: Artificial Tears SOLN 15 ML BOTTLE BOTH EYES SCH ×5 (04:01→20:29)
[2020-12-07] MEDS: Albumin 25% 12.5gm/50mL 12.5 GM/50 ML IV.SOLN IVPB SCH (04:01)
[2020-12-07 04:18] LABS: VBG Ionized Calcium 1.23 mmol/L (1.15-1.35)
[2020-12-07 04:30] LABS: Basophils % 0.3 %; Eosinophils # 0.2 K/mcL (0.0-0.6); Eosinophils % 2.9 %; Hematocrit 39.7 % (37.5-50.1); Hemoglobin 12.1 g/dL (12.9-16.9); Immature Granulocytes % 1.1 % (0-4); Lymphocytes # 0.7 K/mcL (0.6-4.6); Lymphocytes % 11.4 %; Mean Corpuscular HGB Conc 30.5 g/dL (31.6-35.5); Mean Corpuscular Hemoglobin 27.6 pg (28.0-33.3); Mean Corpuscular Volume 90.4 fL (83.0-100.0); Mean Platelet Volume 10.4 fL (9.4-12.4); Monocytes # 0.4 K/mcL (0.0-1.3); Monocytes % 6.2 %; Neutrophils # 4.8 K/mcL (1.6-8.9); Platelet Count 185 K/mcL (140-400); Red Blood Count 4.39 M/mcL (4.19-5.50); Red Cell Distribution Width 14.5 % (11.5-14.5); Segmented Neutrophils % 78.1 %; White Blood Count 6.2 K/mcL (4.3-11.1)
[2020-12-07 05:03] LABS: BUN/Creatinine Ratio 30 (6-26); Blood Urea Nitrogen 25 mg/dL (6-20); Calcium 9.1 mg/dL (8.6-10.3); Carbon Dioxide 35 mEq/L (23-29); Chloride 101 mEq/L (98-107); Glucose 244 mg/dL (70-105); Magnesium 1.8 mg/dL (1.6-2.6); Osmolality,Calculated 306 (280-300); Phosphorous 3.6 mg/dL (2.7-4.5); Potassium 4.5 mEq/L (3.5-5.1); Sodium 142 mEq/L (136-145); eGFR For African Americans > 60 (> 60); eGFR For Non-African Americans > 60 (> 60)
[2020-12-07] MEDS: Dexmedetomidine HCl 400 MCG/100 ML MLS IVC SCH ×3 (06:09→18:54)
[2020-12-07] MEDS: Furosemide 20 MG/2 ML VIAL IVP SCH ×2 (06:29→16:18)
[2020-12-07] MEDS: Budesonide/Formoterol 160/4.5 1 PUFF INH IH SCH ×2 (07:23→19:47)
[2020-12-07] MEDS: Norepinephrine 4 MG/254 ML IV.SOLN IVC SCH ×2 (08:41→12:22)
[2020-12-07] MEDS: Piperacillin/Tazobactam 3.375 GM in 0.9 % Sodium Chloride Mini Bag 100 ML IVPB SCH ×2 (08:46→16:19)
[2020-12-07] MEDS: Chlorhexidine Rinse 15 ML MOUTHWASH MM SCH ×2 (08:47→20:27)
[2020-12-07] MEDS: Pantoprazole 40 MG VIAL IVP SCH (08:47)
[2020-12-07] MEDS: Docusate Oral Soln 100 MG/10 ML UDC GTUBE SCH ×2 (08:47→20:27)
[2020-12-07] MEDS: Cholecalciferol (D-3) 1,000 UNIT (25MCG) TABLET GTUBE SCH (08:48)
[2020-12-07] MEDS: Insulin DETEMIR 100 UNIT/ML X5UNITS SUBQ SCH ×2 (08:48→20:27)
[2020-12-07] MEDS: Nystatin POWDER 30 GM BOTTLE TP SCH ×2 (08:50→20:29)
[2020-12-07] MEDS: Midazolam HCl 50 MG/100 ML IV.SOLN IVC SCH ×3 (09:21→23:57)
[2020-12-07] MEDS: Cisatracurium 200 MG in 0.9 % Sodium Chloride 180 ML IVC SCH ×2 (09:23→20:26)
[2020-12-07] MEDS: FentaNYL (PF) 2,500 MCG/50 ML IV.SOLN IVC SCH (16:19)
[2020-12-07] MEDS: Artificial Tears SOLN 15 ML BOTTLE BOTH EYES PRN (20:28)
[2020-12-08] MEDS: Artificial Tears SOLN 15 ML BOTTLE BOTH EYES SCH ×7 (00:37→23:34)
[2020-12-08] MEDS: Piperacillin/Tazobactam 3.375 GM in 0.9 % Sodium Chloride Mini Bag 100 ML IVPB SCH ×4 (00:39→23:44)
[2020-12-08] MEDS: Midazolam HCl 50 MG/100 ML IV.SOLN IVC SCH ×4 (01:50→20:13)
[2020-12-08] MEDS: Dexmedetomidine HCl 400 MCG/100 ML MLS IVC SCH ×3 (01:51→12:40)
[2020-12-08] MEDS: Ipratropium 1 PUFF INHALER IH SCH ×6 (03:08→23:36)
[2020-12-08 03:51] LABS: ABG Base Excess 11 mEq/L (-2 to 3); ABG HCO3 46 mEq/L (21-27); ABG Oxygen Saturation 81 % (95-98); ABG PCO2 129 mmHg (35-45); ABG PH 7.16 pH Units (7.32-7.45); ABG PO2 64 mmHg (85-104); ABG TCO2 50 mEq/L (20-26); Blood Gas VT 450 cc
[2020-12-08] MEDS: Insulin LISPRO 300 UNITS/3 ML VIAL SUBQ SCH ×6 (04:31→23:35)
[2020-12-08] MEDS: *HR* Metoprolol 5 MG/5 ML VIAL IVP PRN (05:23)
[2020-12-08] MEDS: *HR* Heparin 5,000 UNIT/ML VIAL IVP PRN (05:23)
[2020-12-08] MEDS: Cisatracurium 200 MG in 0.9 % Sodium Chloride 180 ML IVC SCH ×2 (06:43→17:28)
[2020-12-08] MEDS: FentaNYL (PF) 2,500 MCG/50 ML IV.SOLN IVC SCH ×2 (06:56→19:04)
[2020-12-08] MEDS: Norepinephrine 4 MG/254 ML IV.SOLN IVC SCH ×4 (07:30→20:12)
[2020-12-08] MEDS: Budesonide/Formoterol 160/4.5 1 PUFF INH IH SCH ×2 (07:54→20:00)
[2020-12-08] MEDS: Chlorhexidine Rinse 15 ML MOUTHWASH MM SCH ×2 (09:23→20:11)
[2020-12-08] MEDS: Furosemide 20 MG/2 ML VIAL IVP SCH (09:24)
[2020-12-08] MEDS: Cholecalciferol (D-3) 1,000 UNIT (25MCG) TABLET GTUBE SCH (09:24)
[2020-12-08] MEDS: Insulin DETEMIR 100 UNIT/ML X5UNITS SUBQ SCH ×2 (09:24→20:11)
[2020-12-08] MEDS: Docusate Oral Soln 100 MG/10 ML UDC GTUBE SCH ×2 (09:24→20:11)
[2020-12-08] MEDS: Pantoprazole 40 MG VIAL IVP SCH (09:24)
[2020-12-08] MEDS: Nystatin POWDER 30 GM BOTTLE TP SCH ×2 (09:24→20:14)
[2020-12-08 16:02] LABS: VBG Ionized Calcium 1.25 mmol/L (1.15-1.35)
[2020-12-08 16:04] LABS: Basophils # 0.1 K/mcL (0.0-0.2); Basophils % 0.9 %; Eosinophils # 0.1 K/mcL (0.0-0.6); Eosinophils % 2.5 %; Hematocrit 35.4 % (37.5-50.1); Immature Granulocytes % 4.3 % (0-4); Lymphocytes % 18.2 %; Mean Corpuscular HGB Conc 29.7 g/dL (31.6-35.5); Mean Corpuscular Hemoglobin 26.9 pg (28.0-33.3); Mean Corpuscular Volume 90.8 fL (83.0-100.0); Mean Platelet Volume 10.6 fL (9.4-12.4); Monocytes # 0.5 K/mcL (0.0-1.3); Neutrophils # 3.7 K/mcL (1.6-8.9); Platelet Count 205 K/mcL (140-400); Red Cell Distribution Width 14.3 % (11.5-14.5); Segmented Neutrophils % 66.1 %; White Blood Count 5.6 K/mcL (4.3-11.1)
[2020-12-08 16:24] LABS: Hemoglobin 10.5 g/dL (12.9-16.9)
[2020-12-08 16:26] LABS: Alanine Aminotransferase 20 Units/L (7-52); Alkaline Phosphatase 67 Units/L (34-104); Aspartate Amino Transferase 13 Units/L (13-39); BUN/Creatinine Ratio 30 (6-26); Bilirubin,Direct 0.1 mg/dL (0.0-0.2); Bilirubin,Indirect 0.3 mg/dL (0.0-1.0); Bilirubin,Total 0.4 mg/dL (0.3-1.0); Blood Urea Nitrogen 32 mg/dL (6-20); Calcium 9.3 mg/dL (8.6-10.3); Carbon Dioxide 42 mEq/L (23-29); Chloride 98 mEq/L (98-107); Glucose 169 mg/dL (70-105); Magnesium 2.4 mg/dL (1.6-2.6); Osmolality,Calculated 309 (280-300); Phosphorous 1.6 mg/dL (2.7-4.5); Potassium 4.4 mEq/L (3.5-5.1); Sodium 144 mEq/L (136-145); eGFR For African Americans > 60 (> 60); eGFR For Non-African Americans > 60 (> 60)
[2020-12-08 16:51] LABS: Platelet Estimate Normal (Normal); Reactive Lymphocytes Present (Not Present)
[2020-12-08 17:17] LABS: ABG Base Excess 12 mEq/L (-2 to 3); ABG HCO3 39 mEq/L (21-27); ABG Oxygen Saturation 73 % (95-98); ABG PCO2 64 mmHg (35-45); ABG PO2 41 mmHg (85-104); ABG TCO2 41 mEq/L (20-26); Blood Gas Modality ASSIST CONTROL; Blood Gas VT 450 cc
[2020-12-08] MEDS: Heparin 25,000UNIT/250ML 1/2NS 25,000 UNIT/250 ML IV.SOLN IVC SCH (17:28)
[2020-12-08 17:32] LABS: ABG Base Excess 13 mEq/L (-2 to 3); ABG HCO3 42 mEq/L (21-27); ABG Oxygen Saturation 90 % (95-98); ABG PCO2 75 mmHg (35-45); ABG PH 7.36 pH Units (7.32-7.45); ABG PO2 64 mmHg (85-104); ABG TCO2 44 mEq/L (20-26); Blood Gas Modality ASSIST CONTROL; Blood Gas VT 450 cc
[2020-12-09] MEDS: Cisatracurium 200 MG in 0.9 % Sodium Chloride 180 ML IVC SCH (00:04)
[2020-12-09] MEDS: Artificial Tears SOLN 15 ML BOTTLE BOTH EYES SCH ×6 (03:13→23:17)
[2020-12-09] MEDS: Midazolam HCl 50 MG/100 ML IV.SOLN IVC SCH ×3 (03:13→17:55)
[2020-12-09] MEDS: Dexmedetomidine HCl 400 MCG/100 ML MLS IVC SCH ×3 (03:14→17:53)
[2020-12-09 03:19] LABS: Basophils % 0.6 %; Eosinophils # 0.1 K/mcL (0.0-0.6); Eosinophils % 2.1 %; Hematocrit 37.1 % (37.5-50.1); Hemoglobin 10.9 g/dL (12.9-16.9); Immature Granulocytes % 3.7 % (0-4); Lymphocytes # 0.8 K/mcL (0.6-4.6); Lymphocytes % 12.9 %; Mean Corpuscular HGB Conc 29.4 g/dL (31.6-35.5); Mean Corpuscular Hemoglobin 26.7 pg (28.0-33.3); Mean Corpuscular Volume 90.9 fL (83.0-100.0); Mean Platelet Volume 10.8 fL (9.4-12.4); Monocytes # 0.6 K/mcL (0.0-1.3); Monocytes % 8.9 %; Neutrophils # 4.5 K/mcL (1.6-8.9); Platelet Count 258 K/mcL (140-400); Red Blood Count 4.08 M/mcL (4.19-5.50); Red Cell Distribution Width 14.8 % (11.5-14.5); Segmented Neutrophils % 71.8 %; White Blood Count 6.3 K/mcL (4.3-11.1)
[2020-12-09 03:25] LABS: VBG Ionized Calcium 1.16 mmol/L (1.15-1.35)
[2020-12-09] MEDS: Ipratropium 1 PUFF INHALER IH SCH ×6 (03:27→23:52)
[2020-12-09 03:36] LABS: ABG Base Excess 14 mEq/L (-2 to 3); ABG HCO3 43 mEq/L (21-27); ABG Oxygen Saturation 92 % (95-98); ABG PCO2 79 mmHg (35-45); ABG PH 7.35 pH Units (7.32-7.45); ABG PO2 73 mmHg (85-104); ABG TCO2 46 mEq/L (20-26); Blood Gas VT 450 cc
[2020-12-09 04:10] LABS: Alanine Aminotransferase 19 Units/L (7-52); Albumin 3.1 g/dL (3.5-5.7); Alkaline Phosphatase 66 Units/L (34-104); Aspartate Amino Transferase 14 Units/L (13-39); BUN/Creatinine Ratio 33 (6-26); Bilirubin,Direct 0.2 mg/dL (0.0-0.2); Bilirubin,Indirect 0.3 mg/dL (0.0-1.0); Bilirubin,Total 0.5 mg/dL (0.3-1.0); Blood Urea Nitrogen 35 mg/dL (6-20); Calcium 9.4 mg/dL (8.6-10.3); Carbon Dioxide 40 mEq/L (23-29); Chloride 98 mEq/L (98-107); Globulin 3.2 g/dL (2.4-3.5); Glucose 214 mg/dL (70-105); Magnesium 2.3 mg/dL (1.6-2.6); Osmolality,Calculated 312 (280-300); Phosphorous 2.9 mg/dL (2.7-4.5); Potassium 4.6 mEq/L (3.5-5.1); Sodium 144 mEq/L (136-145); Total Protein 6.3 g/dL (6.4-8.9); eGFR For African Americans > 60 (> 60); eGFR For Non-African Americans > 60 (> 60)
[2020-12-09] MEDS: Insulin LISPRO 300 UNITS/3 ML VIAL SUBQ SCH ×6 (04:12→23:21)
[2020-12-09] MEDS: FentaNYL (PF) 2,500 MCG/50 ML IV.SOLN IVC SCH ×2 (06:47→17:56)
[2020-12-09] MEDS: Norepinephrine 4 MG/254 ML IV.SOLN IVC SCH ×2 (07:15→13:03)
[2020-12-09] MEDS: Budesonide/Formoterol 160/4.5 1 PUFF INH IH SCH ×2 (07:18→19:51)
[2020-12-09] MEDS: Docusate Oral Soln 100 MG/10 ML UDC GTUBE SCH ×2 (07:43→20:12)
[2020-12-09] MEDS: Pantoprazole 40 MG VIAL IVP SCH (07:43)
[2020-12-09] MEDS: Chlorhexidine Rinse 15 ML MOUTHWASH MM SCH ×2 (07:43→20:12)
[2020-12-09] MEDS: Furosemide 20 MG/2 ML VIAL IVP SCH (07:43)
[2020-12-09] MEDS: Nystatin POWDER 30 GM BOTTLE TP SCH ×2 (07:43→20:13)
[2020-12-09] MEDS: Piperacillin/Tazobactam 3.375 GM in 0.9 % Sodium Chloride Mini Bag 100 ML IVPB SCH ×3 (07:44→23:18)
[2020-12-09] MEDS: Acetaminophen 325 MG TABLET PO PRN (07:44)
[2020-12-09] MEDS: Cholecalciferol (D-3) 1,000 UNIT (25MCG) TABLET GTUBE SCH (07:44)
[2020-12-09] MEDS: Insulin DETEMIR 100 UNIT/ML X5UNITS SUBQ SCH ×2 (07:47→20:13)
[2020-12-09] MEDS: Heparin 25,000UNIT/250ML 1/2NS 25,000 UNIT/250 ML IV.SOLN IVC SCH (11:40)
[2020-12-10] MEDS: Norepinephrine 4 MG/254 ML IV.SOLN IVC SCH ×4 (00:45→23:34)
[2020-12-10] MEDS: Midazolam HCl 50 MG/100 ML IV.SOLN IVC SCH ×3 (01:37→18:25)
[2020-12-10] MEDS: Dexmedetomidine HCl 400 MCG/100 ML MLS IVC SCH ×3 (01:37→19:34)
[2020-12-10] MEDS: Ipratropium 1 PUFF INHALER IH SCH ×6 (03:14→23:31)
[2020-12-10] MEDS: Insulin LISPRO 300 UNITS/3 ML VIAL SUBQ SCH ×6 (03:41→23:29)
[2020-12-10] MEDS: Artificial Tears SOLN 15 ML BOTTLE BOTH EYES SCH ×6 (03:41→23:29)
[2020-12-10 03:56] LABS: Basophils # 0.1 K/mcL (0.0-0.2); Basophils % 0.9 %; Eosinophils # 0.2 K/mcL (0.0-0.6); Eosinophils % 3.8 %; Hematocrit 35.8 % (37.5-50.1); Hemoglobin 10.6 g/dL (12.9-16.9); Lymphocytes # 1.1 K/mcL (0.6-4.6); Lymphocytes % 19.9 %; Mean Corpuscular HGB Conc 29.6 g/dL (31.6-35.5); Mean Corpuscular Hemoglobin 27.5 pg (28.0-33.3); Mean Corpuscular Volume 92.7 fL (83.0-100.0); Mean Platelet Volume 10.9 fL (9.4-12.4); Monocytes # 0.5 K/mcL (0.0-1.3); Monocytes % 9.1 %; Neutrophils # 3.4 K/mcL (1.6-8.9); Platelet Count 303 K/mcL (140-400); Red Blood Count 3.86 M/mcL (4.19-5.50); Red Cell Distribution Width 15.3 % (11.5-14.5); Segmented Neutrophils % 62.3 %; White Blood Count 5.5 K/mcL (4.3-11.1)
[2020-12-10 04:04] LABS: VBG Ionized Calcium 1.23 mmol/L (1.15-1.35)
[2020-12-10 04:21] LABS: ABG Base Excess 14 mEq/L (-2 to 3); ABG HCO3 44 mEq/L (21-27); ABG Oxygen Saturation 98 % (95-98); ABG PCO2 85 mmHg (35-45); ABG PH 7.32 pH Units (7.32-7.45); ABG PO2 116 mmHg (85-104); ABG TCO2 46 mEq/L (20-26); Blood Gas VT 450 cc
[2020-12-10 04:21] LABS: Alanine Aminotransferase 16 Units/L (7-52); Albumin 2.8 g/dL (3.5-5.7); Albumin/Globulin Ratio 0.8 (1.1-2.2); Alkaline Phosphatase 62 Units/L (34-104); Aspartate Amino Transferase 16 Units/L (13-39); BUN/Creatinine Ratio 36 (6-26); Bilirubin,Direct 0.2 mg/dL (0.0-0.2); Bilirubin,Indirect 0.3 mg/dL (0.0-1.0); Bilirubin,Total 0.5 mg/dL (0.3-1.0); Blood Urea Nitrogen 36 mg/dL (6-20); Calcium 9.4 mg/dL (8.6-10.3); Carbon Dioxide 41 mEq/L (23-29); Chloride 101 mEq/L (98-107); Globulin 3.5 g/dL (2.4-3.5); Glucose 113 mg/dL (70-105); Magnesium 2.4 mg/dL (1.6-2.6); Osmolality,Calculated 309 (280-300); Phosphorous 4.1 mg/dL (2.7-4.5); Potassium 4.3 mEq/L (3.5-5.1); Sodium 145 mEq/L (136-145); Total Protein 6.3 g/dL (6.4-8.9); eGFR For African Americans > 60 (> 60); eGFR For Non-African Americans > 60 (> 60)
[2020-12-10 04:22] LABS: Polychromasia 1+ (Not Present)
[2020-12-10 04:23] LABS: Basophilic Stippling 1+ (Not Present)
[2020-12-10 04:24] LABS: Platelet Estimate Normal (Normal)
[2020-12-10] MEDS: *HR* Metoprolol 5 MG/5 ML VIAL IVP PRN (06:32)
[2020-12-10] MEDS: FentaNYL (PF) 2,500 MCG/50 ML IV.SOLN IVC SCH ×2 (06:35→17:45)
[2020-12-10] MEDS: Heparin 25,000UNIT/250ML 1/2NS 25,000 UNIT/250 ML IV.SOLN IVC SCH (06:36)
[2020-12-10] MEDS: Budesonide/Formoterol 160/4.5 1 PUFF INH IH SCH ×2 (07:23→19:55)
[2020-12-10] MEDS: Docusate Oral Soln 100 MG/10 ML UDC GTUBE SCH ×2 (08:51→20:34)
[2020-12-10] MEDS: Piperacillin/Tazobactam 3.375 GM in 0.9 % Sodium Chloride Mini Bag 100 ML IVPB SCH ×3 (08:51→23:32)
[2020-12-10] MEDS: Furosemide 20 MG/2 ML VIAL IVP SCH (08:52)
[2020-12-10] MEDS: Cholecalciferol (D-3) 1,000 UNIT (25MCG) TABLET GTUBE SCH (08:52)
[2020-12-10] MEDS: Pantoprazole 40 MG VIAL IVP SCH (08:52)
[2020-12-10] MEDS: Chlorhexidine Rinse 15 ML MOUTHWASH MM SCH ×2 (08:52→20:29)
[2020-12-10] MEDS: Insulin DETEMIR 100 UNIT/ML X5UNITS SUBQ SCH ×2 (08:53→20:34)
[2020-12-10] MEDS: Nystatin POWDER 30 GM BOTTLE TP SCH ×2 (08:53→20:34)
[2020-12-10] MEDS: *HR* Dextrose 50 % in Water (Syg) 50 ML SYRINGE IVP PRN ×3 (12:12→17:11)
[2020-12-10] MEDS: D5% in 0.45% NACL 1,000 ML IVC SCH (17:11)
[2020-12-11] MEDS: Heparin 25,000UNIT/250ML 1/2NS 25,000 UNIT/250 ML IV.SOLN IVC SCH ×2 (01:40→21:08)
[2020-12-11] MEDS: Midazolam HCl 50 MG/100 ML IV.SOLN IVC SCH ×3 (01:55→16:45)
[2020-12-11] MEDS: Artificial Tears SOLN 15 ML BOTTLE BOTH EYES SCH ×6 (03:12→23:48)
[2020-12-11] MEDS: Insulin LISPRO 300 UNITS/3 ML VIAL SUBQ SCH ×6 (03:15→23:49)
[2020-12-11] MEDS: Ipratropium 1 PUFF INHALER IH SCH ×6 (03:31→23:44)
[2020-12-11] MEDS: Dexmedetomidine HCl 400 MCG/100 ML MLS IVC SCH ×4 (03:47→22:49)
[2020-12-11 04:03] LABS: ABG Base Excess 13 mEq/L (-2 to 3); ABG HCO3 41 mEq/L (21-27); ABG Oxygen Saturation 82 % (95-98); ABG PCO2 70 mmHg (35-45); ABG PH 7.38 pH Units (7.32-7.45); ABG PO2 50 mmHg (85-104); ABG TCO2 43 mEq/L (20-26); Blood Gas VT 450 cc
[2020-12-11 04:09] LABS: Basophils # 0.1 K/mcL (0.0-0.2); Eosinophils # 0.2 K/mcL (0.0-0.6); Eosinophils % 2.5 %; Hematocrit 34.7 % (37.5-50.1); Hemoglobin 10.4 g/dL (12.9-16.9); Immature Granulocytes % 4.5 % (0-4); Lymphocytes # 1.1 K/mcL (0.6-4.6); Lymphocytes % 14.7 %; Mean Corpuscular Hemoglobin 27.1 pg (28.0-33.3); Mean Corpuscular Volume 90.4 fL (83.0-100.0); Mean Platelet Volume 10.9 fL (9.4-12.4); Monocytes # 0.5 K/mcL (0.0-1.3); Monocytes % 6.9 %; Nucleated Red Blood Cells 0.7 /100 WBC (0); Platelet Count 355 K/mcL (140-400); Red Blood Count 3.84 M/mcL (4.19-5.50); Red Cell Distribution Width 15.4 % (11.5-14.5); Segmented Neutrophils % 70.4 %; White Blood Count 7.1 K/mcL (4.3-11.1)
[2020-12-11 04:19] LABS: VBG Ionized Calcium 1.25 mmol/L (1.15-1.35)
[2020-12-11] MEDS: *HR* Metoprolol 5 MG/5 ML VIAL IVP PRN (04:19)
[2020-12-11 04:32] LABS: Alanine Aminotransferase 16 Units/L (7-52); Albumin 2.7 g/dL (3.5-5.7); Albumin/Globulin Ratio 0.8 (1.1-2.2); Alkaline Phosphatase 59 Units/L (34-104); Aspartate Amino Transferase 29 Units/L (13-39); BUN/Creatinine Ratio 34 (6-26); Bilirubin,Direct 0.3 mg/dL (0.0-0.2); Bilirubin,Indirect 0.4 mg/dL (0.0-1.0); Bilirubin,Total 0.7 mg/dL (0.3-1.0); Blood Urea Nitrogen 30 mg/dL (6-20); Calcium 9.3 mg/dL (8.6-10.3); Carbon Dioxide 38 mEq/L (23-29); Chloride 103 mEq/L (98-107); Globulin 3.4 g/dL (2.4-3.5); Glucose 82 mg/dL (70-105); Magnesium 2.2 mg/dL (1.6-2.6); Osmolality,Calculated 309 (280-300); Phosphorous 2.5 mg/dL (2.7-4.5); Potassium 3.6 mEq/L (3.5-5.1); Sodium 147 mEq/L (136-145); Total Protein 6.1 g/dL (6.4-8.9); eGFR For African Americans > 60 (> 60); eGFR For Non-African Americans > 60 (> 60)
[2020-12-11] MEDS: FentaNYL (PF) 2,500 MCG/50 ML IV.SOLN IVC SCH ×2 (05:00→18:08)
[2020-12-11] MEDS: Piperacillin/Tazobactam 3.375 GM in 0.9 % Sodium Chloride Mini Bag 100 ML IVPB SCH ×2 (07:46→16:13)
[2020-12-11] MEDS: Chlorhexidine Rinse 15 ML MOUTHWASH MM SCH ×2 (07:47→21:09)
[2020-12-11] MEDS: Docusate Oral Soln 100 MG/10 ML UDC GTUBE SCH ×2 (07:47→21:09)
[2020-12-11] MEDS: Pantoprazole 40 MG VIAL IVP SCH (07:48)
[2020-12-11] MEDS: Cholecalciferol (D-3) 1,000 UNIT (25MCG) TABLET GTUBE SCH (07:48)
[2020-12-11] MEDS: Furosemide 20 MG/2 ML VIAL IVP SCH (07:48)
[2020-12-11] MEDS: Budesonide/Formoterol 160/4.5 1 PUFF INH IH SCH ×2 (08:00→19:39)
[2020-12-11] MEDS ORDERED: Metoclopramide 10 MG/10 ML UD.LIQ GTUBE ONE (08:07)
[2020-12-11] MEDS: Nystatin POWDER 30 GM BOTTLE TP SCH ×2 (08:30→21:09)
[2020-12-11] MEDS: Insulin DETEMIR 100 UNIT/ML X5UNITS SUBQ SCH ×2 (09:53→21:11)
[2020-12-11] MEDS ORDERED: Bisacodyl 10 MG RECTAL SUPPOSITORY RC ONE (12:00)
[2020-12-11] MEDS: D5% in 0.45% NACL 1,000 ML IVC SCH (12:21)
[2020-12-11] MEDS: Norepinephrine 4 MG/254 ML IV.SOLN IVC SCH ×2 (22:49→23:37)
[2020-12-11] MEDS: Cisatracurium 200 MG in 0.9 % Sodium Chloride 180 ML IVC SCH (22:50)
[2020-12-12] MEDS: Piperacillin/Tazobactam 3.375 GM in 0.9 % Sodium Chloride Mini Bag 100 ML IVPB SCH ×4 (00:46→23:36)
[2020-12-12] MEDS: Midazolam HCl 50 MG/100 ML IV.SOLN IVC SCH ×4 (01:39→23:37)
[2020-12-12] MEDS: FentaNYL (PF) 2,500 MCG/50 ML IV.SOLN IVC SCH ×3 (01:56→23:37)
[2020-12-12] MEDS: Norepinephrine 4 MG/254 ML IV.SOLN IVC SCH ×3 (03:16→17:40)
[2020-12-12] MEDS: *HR* Metoprolol 5 MG/5 ML VIAL IVP PRN ×2 (03:19→09:31)
[2020-12-12] MEDS: Ipratropium 1 PUFF INHALER IH SCH ×6 (03:52→23:55)
[2020-12-12] MEDS: Dexmedetomidine HCl 400 MCG/100 ML MLS IVC SCH ×4 (04:38→22:02)
[2020-12-12] MEDS: Artificial Tears SOLN 15 ML BOTTLE BOTH EYES SCH ×5 (04:40→20:31)
[2020-12-12] MEDS: Insulin LISPRO 300 UNITS/3 ML VIAL SUBQ SCH ×5 (04:40→20:31)
[2020-12-12 04:41] LABS: ABG Base Excess 13 mEq/L (-2 to 3); ABG HCO3 41 mEq/L (21-27); ABG Oxygen Saturation 82 % (95-98); ABG PCO2 72 mmHg (35-45); ABG PH 7.36 pH Units (7.32-7.45); ABG PO2 51 mmHg (85-104); ABG TCO2 43 mEq/L (20-26); Blood Gas Modality ASSIST CONTROL; Blood Gas VT 450 cc
[2020-12-12 04:47] LABS: VBG Ionized Calcium 1.23 mmol/L (1.15-1.35)
[2020-12-12 04:48] LABS: Eosinophils # 0.2 K/mcL (0.0-0.6); Hematocrit 31.9 % (37.5-50.1); Hemoglobin 9.4 g/dL (12.9-16.9); Mean Corpuscular HGB Conc 29.5 g/dL (31.6-35.5); Mean Corpuscular Volume 91.7 fL (83.0-100.0); Mean Platelet Volume 11.2 fL (9.4-12.4); Nucleated Red Blood Cells 0.4 /100 WBC (0); Platelet Count 409 K/mcL (140-400); Red Blood Count 3.48 M/mcL (4.19-5.50); Red Cell Distribution Width 15.5 % (11.5-14.5); White Blood Count 7.9 K/mcL (4.3-11.1)
[2020-12-12 05:02] LABS: Alanine Aminotransferase 16 Units/L (7-52); Albumin 2.5 g/dL (3.5-5.7); Albumin/Globulin Ratio 0.8 (1.1-2.2); Alkaline Phosphatase 58 Units/L (34-104); Aspartate Amino Transferase 23 Units/L (13-39); BUN/Creatinine Ratio 30 (6-26); Bilirubin,Direct 0.3 mg/dL (0.0-0.2); Bilirubin,Indirect 0.4 mg/dL (0.0-1.0); Bilirubin,Total 0.7 mg/dL (0.3-1.0); Blood Urea Nitrogen 28 mg/dL (6-20); Calcium 8.9 mg/dL (8.6-10.3); Carbon Dioxide 39 mEq/L (23-29); Chloride 100 mEq/L (98-107); Globulin 3.3 g/dL (2.4-3.5); Glucose 205 mg/dL (70-105); Osmolality,Calculated 309 (280-300); Phosphorous 4.1 mg/dL (2.7-4.5); Potassium 3.2 mEq/L (3.5-5.1); Sodium 144 mEq/L (136-145); Total Protein 5.8 g/dL (6.4-8.9); eGFR For African Americans > 60 (> 60); eGFR For Non-African Americans > 60 (> 60)
[2020-12-12] MEDS: D5% in 0.45% NACL 1,000 ML IVC SCH (05:45)
[2020-12-12 05:46] LABS: Lymphocytes # 1.1 K/mcL (0.6-4.6); Monocytes # 0.6 K/mcL (0.0-1.3); Neutrophils # 5.5 K/mcL (1.6-8.9); Platelet Estimate Increased (Normal)
[2020-12-12] MEDS: *HR* Heparin 5,000 UNIT/ML VIAL IVP PRN ×2 (05:46→23:09)
[2020-12-12 05:47] LABS: Large Platelets Present (Not Present)
[2020-12-12] MEDS: Budesonide/Formoterol 160/4.5 1 PUFF INH IH SCH ×2 (08:01→20:09)
[2020-12-12] MEDS: Furosemide 20 MG/2 ML VIAL IVP SCH ×2 (08:17→20:31)
[2020-12-12] MEDS: Pantoprazole 40 MG VIAL IVP SCH (08:17)
[2020-12-12] MEDS: Insulin DETEMIR 100 UNIT/ML X5UNITS SUBQ SCH ×2 (08:17→20:36)
[2020-12-12] MEDS: Chlorhexidine Rinse 15 ML MOUTHWASH MM SCH ×2 (08:17→20:30)
[2020-12-12] MEDS: Docusate Oral Soln 100 MG/10 ML UDC GTUBE SCH ×2 (08:17→20:30)
[2020-12-12] MEDS: Nystatin POWDER 30 GM BOTTLE TP SCH ×2 (08:18→20:32)
[2020-12-12] MEDS: Cholecalciferol (D-3) 1,000 UNIT (25MCG) TABLET GTUBE SCH (08:18)
[2020-12-12] MEDS: Potassium Chloride Elixir 20 MEQ/15 ML UDC GTUBE SCH ×2 (10:58→20:32)
[2020-12-12] MEDS: Acetaminophen 325 MG TABLET PO PRN (15:36)
[2020-12-12] MEDS: Heparin 25,000UNIT/250ML 1/2NS 25,000 UNIT/250 ML IV.SOLN IVC SCH (15:47)
[2020-12-12] MEDS: Cisatracurium 200 MG in 0.9 % Sodium Chloride 180 ML IVC SCH (23:07)
[2020-12-13] MEDS: Insulin LISPRO 300 UNITS/3 ML VIAL SUBQ SCH ×6 (00:03→20:25)
[2020-12-13] MEDS: Artificial Tears SOLN 15 ML BOTTLE BOTH EYES SCH ×6 (00:03→20:24)
[2020-12-13] MEDS: *HR* Metoprolol 5 MG/5 ML VIAL IVP PRN (01:45)
[2020-12-13] MEDS: Ipratropium 1 PUFF INHALER IH SCH ×6 (03:55→23:05)
[2020-12-13 04:06] LABS: ABG Base Excess 17 mEq/L (-2 to 3); ABG HCO3 45 mEq/L (21-27); ABG Oxygen Saturation 88 % (95-98); ABG PCO2 71 mmHg (35-45); ABG PH 7.41 pH Units (7.32-7.45); ABG PO2 57 mmHg (85-104); ABG TCO2 47 mEq/L (20-26); Blood Gas Modality ASSIST CONTROL; Blood Gas VT 450 cc
[2020-12-13] MEDS: Norepinephrine 4 MG/254 ML IV.SOLN IVC SCH ×2 (04:55→12:06)
[2020-12-13] MEDS: Dexmedetomidine HCl 400 MCG/100 ML MLS IVC SCH ×4 (04:56→22:10)
[2020-12-13 05:38] LABS: VBG Ionized Calcium 1.21 mmol/L (1.15-1.35)
[2020-12-13 05:50] LABS: Alanine Aminotransferase 18 Units/L (7-52); Albumin 2.7 g/dL (3.5-5.7); Albumin/Globulin Ratio 0.8 (1.1-2.2); Alkaline Phosphatase 74 Units/L (34-104); Aspartate Amino Transferase 21 Units/L (13-39); BUN/Creatinine Ratio 27 (6-26); Bilirubin,Direct 0.3 mg/dL (0.0-0.2); Bilirubin,Indirect 0.4 mg/dL (0.0-1.0); Bilirubin,Total 0.7 mg/dL (0.3-1.0); Blood Urea Nitrogen 26 mg/dL (6-20); Calcium 9.1 mg/dL (8.6-10.3); Carbon Dioxide 42 mEq/L (23-29); Chloride 97 mEq/L (98-107); Globulin 3.5 g/dL (2.4-3.5); Glucose 169 mg/dL (70-105); Magnesium 1.9 mg/dL (1.6-2.6); Osmolality,Calculated 309 (280-300); Phosphorous 3.7 mg/dL (2.7-4.5); Sodium 145 mEq/L (136-145); Total Protein 6.2 g/dL (6.4-8.9); eGFR For African Americans > 60 (> 60); eGFR For Non-African Americans > 60 (> 60)
[2020-12-13] MEDS: *HR* Heparin 5,000 UNIT/ML VIAL IVP PRN ×2 (06:19→13:16)
[2020-12-13] MEDS: D5% in 0.45% NACL 1,000 ML IVC SCH (06:23)
[2020-12-13] MEDS: Midazolam HCl 50 MG/100 ML IV.SOLN IVC SCH ×2 (06:54→22:09)
[2020-12-13] MEDS: Budesonide/Formoterol 160/4.5 1 PUFF INH IH SCH ×2 (07:35→19:40)
[2020-12-13] MEDS: Docusate Oral Soln 100 MG/10 ML UDC GTUBE SCH ×2 (08:00→20:28)
[2020-12-13] MEDS: Potassium Chloride Elixir 20 MEQ/15 ML UDC GTUBE SCH ×2 (08:00→20:28)
[2020-12-13] MEDS: Piperacillin/Tazobactam 3.375 GM in 0.9 % Sodium Chloride Mini Bag 100 ML IVPB SCH ×2 (08:00→15:09)
[2020-12-13] MEDS: Chlorhexidine Rinse 15 ML MOUTHWASH MM SCH ×2 (08:01→20:28)
[2020-12-13] MEDS: Cholecalciferol (D-3) 1,000 UNIT (25MCG) TABLET GTUBE SCH (08:01)
[2020-12-13] MEDS: Furosemide 20 MG/2 ML VIAL IVP SCH ×2 (08:01→20:28)
[2020-12-13] MEDS: Pantoprazole 40 MG VIAL IVP SCH (08:01)
[2020-12-13] MEDS: Insulin DETEMIR 100 UNIT/ML X5UNITS SUBQ SCH ×2 (08:01→21:25)
[2020-12-13] MEDS: Nystatin POWDER 30 GM BOTTLE TP SCH ×2 (08:03→20:25)
[2020-12-13] MEDS: Bisacodyl 10 MG RECTAL SUPPOSITORY RC SCH (09:26)
[2020-12-13] MEDS: Metoclopramide 10 MG/10 ML UD.LIQ GTUBE SCH ×3 (09:26→16:55)
[2020-12-13 10:36] LABS: Basophils % 0.4 %; Eosinophils # 0.2 K/mcL (0.0-0.6); Eosinophils % 1.9 %; Hematocrit 33.7 % (37.5-50.1); Hemoglobin 9.9 g/dL (12.9-16.9); Immature Granulocytes % 1.8 % (0-4); Lymphocytes # 1.1 K/mcL (0.6-4.6); Lymphocytes % 9.6 %; Mean Corpuscular HGB Conc 29.4 g/dL (31.6-35.5); Mean Corpuscular Volume 92.1 fL (83.0-100.0); Mean Platelet Volume 12.2 fL (9.4-12.4); Monocytes # 0.5 K/mcL (0.0-1.3); Monocytes % 4.4 %; Neutrophils # 9.3 K/mcL (1.6-8.9); Nucleated Red Blood Cells 0.2 /100 WBC (0); Platelet Count 481 K/mcL (140-400); Red Blood Count 3.66 M/mcL (4.19-5.50); Red Cell Distribution Width 15.3 % (11.5-14.5); Segmented Neutrophils % 81.9 %; White Blood Count 11.4 K/mcL (4.3-11.1)
[2020-12-13 10:43] LABS: Basophils # 0.1 K/mcL (0.0-0.2)
[2020-12-13] MEDS: Heparin 25,000UNIT/250ML 1/2NS 25,000 UNIT/250 ML IV.SOLN IVC SCH (11:00)
[2020-12-13 11:28] LABS: Anisocytosis 1+ (Not Present); Large Platelets Present (Not Present); Platelet Estimate Increased (Normal)
[2020-12-13 11:45] LABS: Bilirubin,Urine Negative (Negative); Blood,Urine Trace (Negative); Clarity,Urine Clear (Clear); Color,Urine Colorless (Yellow); Glucose,Urine (UA) Normal (Normal); Ketones,Urine Negative (Negative); Leukocyte Esterase,Urine Negative (Negative); Mucus,Urine Few per lpf (None-Few); Nitrite,Urine Negative (Negative); PH,Urine 6.5 pH Units (5.0-8.0); Protein,Urine Negative (Neg-Trace); RBC,Urine 0-3 per hpf (0-3); Specific Gravity,Urine 1.008 (1.010-1.025); Urobilinogen,Urine Normal (Normal); WBC,Urine 0-3 per hpf (0-3)
[2020-12-13] MEDS: FentaNYL (PF) 2,500 MCG/50 ML IV.SOLN IVC SCH (12:07)
[2020-12-14] MEDS: Artificial Tears SOLN 15 ML BOTTLE BOTH EYES PRN ×2 (00:14→03:34)
[2020-12-14] MEDS: Metoclopramide 10 MG/10 ML UD.LIQ GTUBE SCH ×4 (00:14→17:20)
[2020-12-14] MEDS: Insulin LISPRO 300 UNITS/3 ML VIAL SUBQ SCH ×6 (00:15→19:48)
[2020-12-14] MEDS: Piperacillin/Tazobactam 3.375 GM in 0.9 % Sodium Chloride Mini Bag 100 ML IVPB SCH ×3 (00:15→14:51)
[2020-12-14] MEDS: Ipratropium 1 PUFF INHALER IH SCH ×6 (03:10→23:39)
[2020-12-14] MEDS: FentaNYL (PF) 2,500 MCG/50 ML IV.SOLN IVC SCH ×2 (03:24→18:04)
[2020-12-14] MEDS: Dexmedetomidine HCl 400 MCG/100 ML MLS IVC SCH ×5 (03:47→22:20)
[2020-12-14] MEDS: Heparin 25,000UNIT/250ML 1/2NS 25,000 UNIT/250 ML IV.SOLN IVC SCH (03:48)
[2020-12-14 03:54] LABS: VBG Ionized Calcium 1.19 mmol/L (1.15-1.35)
[2020-12-14 04:13] LABS: Eosinophils % 0.7 %
[2020-12-14 04:14] LABS: Basophils # 0.1 K/mcL (0.0-0.2); Basophils % 0.6 %; Eosinophils # 0.1 K/mcL (0.0-0.6); Hematocrit 34.1 % (37.5-50.1); Hemoglobin 9.8 g/dL (12.9-16.9); Immature Granulocytes % 3.1 % (0-4); Lymphocytes # 1.7 K/mcL (0.6-4.6); Lymphocytes % 13.5 %; Mean Corpuscular HGB Conc 28.7 g/dL (31.6-35.5); Mean Corpuscular Hemoglobin 27.1 pg (28.0-33.3); Mean Corpuscular Volume 94.5 fL (83.0-100.0); Mean Platelet Volume 11.5 fL (9.4-12.4); Monocytes # 0.8 K/mcL (0.0-1.3); Monocytes % 6.1 %; Neutrophils # 9.4 K/mcL (1.6-8.9); Nucleated Red Blood Cells 0.3 /100 WBC (0); Platelet Count 583 K/mcL (140-400); Red Blood Count 3.61 M/mcL (4.19-5.50); Red Cell Distribution Width 15.3 % (11.5-14.5); White Blood Count 12.4 K/mcL (4.3-11.1)
[2020-12-14 04:16] LABS: Alanine Aminotransferase 16 Units/L (7-52); Albumin 2.6 g/dL (3.5-5.7); Albumin/Globulin Ratio 0.7 (1.1-2.2); Alkaline Phosphatase 70 Units/L (34-104); Aspartate Amino Transferase 16 Units/L (13-39); BUN/Creatinine Ratio 27 (6-26); Bilirubin,Direct 0.3 mg/dL (0.0-0.2); Bilirubin,Indirect 0.4 mg/dL (0.0-1.0); Bilirubin,Total 0.7 mg/dL (0.3-1.0); Blood Urea Nitrogen 33 mg/dL (6-20); Calcium 9.4 mg/dL (8.6-10.3); Carbon Dioxide 40 mEq/L (23-29); Chloride 97 mEq/L (98-107); Globulin 3.8 g/dL (2.4-3.5); Glucose 198 mg/dL (70-105); Magnesium 1.9 mg/dL (1.6-2.6); Osmolality,Calculated 311 (280-300); Phosphorous 4.4 mg/dL (2.7-4.5); Potassium 4.5 mEq/L (3.5-5.1); Sodium 144 mEq/L (136-145); Total Protein 6.4 g/dL (6.4-8.9); eGFR For African Americans > 60 (> 60); eGFR For Non-African Americans > 60 (> 60)
[2020-12-14] MEDS: Cisatracurium 200 MG in 0.9 % Sodium Chloride 180 ML IVC SCH (04:29)
[2020-12-14] MEDS: Norepinephrine 4 MG/254 ML IV.SOLN IVC SCH ×3 (04:29→14:03)
[2020-12-14] MEDS: D5% in 0.45% NACL 1,000 ML IVC SCH (04:34)
[2020-12-14] MEDS: Artificial Tears SOLN 15 ML BOTTLE BOTH EYES SCH ×6 (04:34→19:47)
[2020-12-14 05:30] LABS: ABG Base Excess 15 mEq/L (-2 to 3); ABG HCO3 43 mEq/L (21-27); ABG Oxygen Saturation 93 % (95-98); ABG PCO2 78 mmHg (35-45); ABG PH 7.35 pH Units (7.32-7.45); ABG PO2 75 mmHg (85-104); ABG TCO2 46 mEq/L (20-26); Blood Gas VT 450 cc
[2020-12-14 06:01] LABS: Anisocytosis 1+ (Not Present); Hypochromasia Present (Not Present); Platelet Estimate Increased (Normal); Polychromasia 1+ (Not Present)
[2020-12-14 06:02] LABS: Large Platelets Present (Not Present); Stomatocytes 1+ (Not Present)
[2020-12-14] MEDS: Cholecalciferol (D-3) 1,000 UNIT (25MCG) TABLET GTUBE SCH (07:39)
[2020-12-14] MEDS: Furosemide 20 MG/2 ML VIAL IVP SCH ×2 (07:39→20:52)
[2020-12-14] MEDS: Bisacodyl 10 MG RECTAL SUPPOSITORY RC SCH (07:39)
[2020-12-14] MEDS: Pantoprazole 40 MG VIAL IVP SCH (07:49)
[2020-12-14] MEDS: Chlorhexidine Rinse 15 ML MOUTHWASH MM SCH ×2 (07:49→20:52)
[2020-12-14] MEDS: Potassium Chloride Elixir 20 MEQ/15 ML UDC GTUBE SCH ×2 (07:49→20:52)
[2020-12-14] MEDS: *HR* Metoprolol 5 MG/5 ML VIAL IVP PRN ×3 (07:49→23:37)
[2020-12-14] MEDS: Docusate Oral Soln 100 MG/10 ML UDC GTUBE SCH ×2 (07:49→20:52)
[2020-12-14] MEDS: Insulin DETEMIR 100 UNIT/ML X5UNITS SUBQ SCH ×2 (07:54→21:03)
[2020-12-14] MEDS: Nystatin POWDER 30 GM BOTTLE TP SCH ×2 (07:55→21:03)
[2020-12-14] MEDS: Budesonide/Formoterol 160/4.5 1 PUFF INH IH SCH ×2 (08:04→19:22)
[2020-12-14] MEDS ORDERED: *HR* Heparin 5,000 UNIT/ML VIAL IVP PRN ×2 (13:15)
[2020-12-14] MEDS: Midazolam HCl 50 MG/100 ML IV.SOLN IVC SCH (16:46)
[2020-12-15] MEDS: Piperacillin/Tazobactam 3.375 GM in 0.9 % Sodium Chloride Mini Bag 100 ML IVPB SCH ×4 (00:05→23:45)
[2020-12-15] MEDS: Metoclopramide 10 MG/10 ML UD.LIQ GTUBE SCH ×5 (00:05→23:43)
[2020-12-15] MEDS: Insulin LISPRO 300 UNITS/3 ML VIAL SUBQ SCH ×7 (00:05→23:44)
[2020-12-15] MEDS: Artificial Tears SOLN 15 ML BOTTLE BOTH EYES PRN ×2 (00:05→03:22)
[2020-12-15 00:17] LABS: BUN/Creatinine Ratio 30 (6-26); Blood Urea Nitrogen 36 mg/dL (6-20); Calcium 9.3 mg/dL (8.6-10.3); Carbon Dioxide 43 mEq/L (23-29); Chloride 95 mEq/L (98-107); Glucose 249 mg/dL (70-105); Osmolality,Calculated 313 (280-300); Potassium 4.7 mEq/L (3.5-5.1); Sodium 143 mEq/L (136-145); eGFR For African Americans > 60 (> 60); eGFR For Non-African Americans > 60 (> 60)
[2020-12-15] MEDS: D5% in 0.45% NACL 1,000 ML IVC SCH ×2 (01:52→19:42)
[2020-12-15] MEDS: Cisatracurium 200 MG in 0.9 % Sodium Chloride 180 ML IVC SCH ×2 (01:52→20:33)
[2020-12-15] MEDS: Norepinephrine 4 MG/254 ML IV.SOLN IVC SCH ×3 (01:52→23:45)
[2020-12-15] MEDS: Dexmedetomidine HCl 400 MCG/100 ML MLS IVC SCH ×6 (01:55→23:50)
[2020-12-15] MEDS: Ipratropium 1 PUFF INHALER IH SCH ×6 (03:14→23:40)
[2020-12-15 03:29] LABS: Basophils # 0.1 K/mcL (0.0-0.2); Basophils % 0.5 %; Eosinophils # 0.1 K/mcL (0.0-0.6); Eosinophils % 0.8 %; Immature Granulocytes % 2.9 % (0-4); Lymphocytes # 0.9 K/mcL (0.6-4.6); Lymphocytes % 9.1 %; Mean Corpuscular Hemoglobin 26.9 pg (28.0-33.3); Mean Corpuscular Volume 92.8 fL (83.0-100.0); Mean Platelet Volume 10.7 fL (9.4-12.4); Monocytes # 0.7 K/mcL (0.0-1.3); Monocytes % 7.2 %; Neutrophils # 7.9 K/mcL (1.6-8.9); Nucleated Red Blood Cells 0.2 /100 WBC (0); Platelet Count 640 K/mcL (140-400); Red Blood Count 3.34 M/mcL (4.19-5.50); Red Cell Distribution Width 15.3 % (11.5-14.5); Segmented Neutrophils % 79.5 %; White Blood Count 9.9 K/mcL (4.3-11.1)
[2020-12-15 03:38] LABS: VBG Ionized Calcium 1.21 mmol/L (1.15-1.35)
[2020-12-15 03:52] LABS: Alanine Aminotransferase 15 Units/L (7-52); Albumin 2.5 g/dL (3.5-5.7); Albumin/Globulin Ratio 0.7 (1.1-2.2); Alkaline Phosphatase 70 Units/L (34-104); Aspartate Amino Transferase 14 Units/L (13-39); BUN/Creatinine Ratio 33 (6-26); Bilirubin,Direct 0.2 mg/dL (0.0-0.2); Bilirubin,Indirect 0.4 mg/dL (0.0-1.0); Bilirubin,Total 0.6 mg/dL (0.3-1.0); Blood Urea Nitrogen 38 mg/dL (6-20); Calcium 9.2 mg/dL (8.6-10.3); Carbon Dioxide 44 mEq/L (23-29); Chloride 96 mEq/L (98-107); Globulin 3.6 g/dL (2.4-3.5); Glucose 271 mg/dL (70-105); Magnesium 1.9 mg/dL (1.6-2.6); Osmolality,Calculated 315 (280-300); Potassium 4.4 mEq/L (3.5-5.1); Sodium 143 mEq/L (136-145); Total Protein 6.1 g/dL (6.4-8.9); eGFR For African Americans > 60 (> 60); eGFR For Non-African Americans > 60 (> 60)
[2020-12-15] MEDS: Heparin 25,000UNIT/250ML 1/2NS 25,000 UNIT/250 ML IV.SOLN IVC SCH ×2 (04:28→19:43)
[2020-12-15 04:50] LABS: ABG Base Excess 18 mEq/L (-2 to 3); ABG HCO3 47 mEq/L (21-27); ABG Oxygen Saturation 93 % (95-98); ABG PCO2 83 mmHg (35-45); ABG PH 7.36 pH Units (7.32-7.45); ABG PO2 73 mmHg (85-104); ABG TCO2 49 mEq/L (20-26); Blood Gas VT 450 cc
[2020-12-15] MEDS: *HR* Metoprolol 5 MG/5 ML VIAL IVP PRN ×2 (05:17→15:12)
[2020-12-15] MEDS: Artificial Tears SOLN 15 ML BOTTLE BOTH EYES SCH ×3 (06:26→08:06)
[2020-12-15] MEDS: Budesonide/Formoterol 160/4.5 1 PUFF INH IH SCH ×2 (08:00→20:07)
[2020-12-15] MEDS: Docusate Oral Soln 100 MG/10 ML UDC GTUBE SCH ×2 (08:10→20:32)
[2020-12-15] MEDS: Chlorhexidine Rinse 15 ML MOUTHWASH MM SCH ×2 (08:10→20:32)
[2020-12-15] MEDS: Furosemide 20 MG/2 ML VIAL IVP SCH ×2 (08:11→20:32)
[2020-12-15] MEDS: Bisacodyl 10 MG RECTAL SUPPOSITORY RC SCH (08:11)
[2020-12-15] MEDS: Potassium Chloride Elixir 20 MEQ/15 ML UDC GTUBE SCH ×2 (08:12→20:33)
[2020-12-15] MEDS: Nystatin POWDER 30 GM BOTTLE TP SCH ×2 (08:12→20:33)
[2020-12-15] MEDS: Cholecalciferol (D-3) 1,000 UNIT (25MCG) TABLET GTUBE SCH (08:13)
[2020-12-15] MEDS: Pantoprazole 40 MG VIAL IVP SCH (08:13)
[2020-12-15] MEDS: Acetaminophen 325 MG TABLET PO PRN ×2 (08:40→16:15)
[2020-12-15] MEDS: Insulin DETEMIR 100 UNIT/ML X5UNITS SUBQ SCH ×2 (08:46→20:35)
[2020-12-15] MEDS: Lacri-Lube 3.5 GM TUBE BOTH EYES SCH ×2 (12:01→20:34)
[2020-12-15] MEDS: Midazolam HCl 50 MG/100 ML IV.SOLN IVC SCH (12:21)
[2020-12-15 15:05] LABS: Appearance of Body Fluid Slightly Hazy (Clear); Volume of Body Fluid 20 mL
[2020-12-15] MEDS: FentaNYL (PF) 2,500 MCG/50 ML IV.SOLN IVC SCH (16:06)
[2020-12-16] MEDS: FentaNYL (PF) 2,500 MCG/50 ML IV.SOLN IVC SCH ×2 (01:50→14:20)
[2020-12-16] MEDS: Ipratropium 1 PUFF INHALER IH SCH ×5 (03:23→19:44)
[2020-12-16] MEDS: Insulin LISPRO 300 UNITS/3 ML VIAL SUBQ SCH ×5 (03:59→20:36)
[2020-12-16] MEDS: Midazolam HCl 50 MG/100 ML IV.SOLN IVC SCH ×2 (04:01→20:30)
[2020-12-16] MEDS: Dexmedetomidine HCl 400 MCG/100 ML MLS IVC SCH ×5 (04:03→21:36)
[2020-12-16] MEDS: Acetaminophen 325 MG TABLET PO PRN (04:06)
[2020-12-16 04:30] LABS: ABG Base Excess 21 mEq/L (-2 to 3); ABG HCO3 52 mEq/L (21-27); ABG Oxygen Saturation 86 % (95-98); ABG PCO2 102 mmHg (35-45); ABG PH 7.32 pH Units (7.32-7.45); ABG PO2 61 mmHg (85-104); ABG TCO2 > 50 mEq/L (20-26); Blood Gas VT 450 cc
[2020-12-16 04:57] LABS: Hemoglobin 9.6 g/dL (12.9-16.9)
[2020-12-16 04:59] LABS: Basophils # 0.1 K/mcL (0.0-0.2); Basophils % 0.5 %; Eosinophils # 0.3 K/mcL (0.0-0.6); Eosinophils % 2.1 %; Hematocrit 33.2 % (37.5-50.1); Immature Granulocytes % 2.4 % (0-4); Mean Corpuscular HGB Conc 28.9 g/dL (31.6-35.5); Mean Corpuscular Hemoglobin 27.2 pg (28.0-33.3); Mean Corpuscular Volume 94.1 fL (83.0-100.0); Mean Platelet Volume 11.1 fL (9.4-12.4); Monocytes % 7.3 %; Neutrophils # 9.9 K/mcL (1.6-8.9); Nucleated Red Blood Cells 0.3 /100 WBC (0); Platelet Count 812 K/mcL (140-400); Red Blood Count 3.53 M/mcL (4.19-5.50); Red Cell Distribution Width 15.1 % (11.5-14.5); Segmented Neutrophils % 72.7 %; White Blood Count 13.6 K/mcL (4.3-11.1)
[2020-12-16] MEDS: Metoclopramide 10 MG/10 ML UD.LIQ GTUBE SCH ×3 (05:11→16:36)
[2020-12-16] MEDS: *HR* Metoprolol 5 MG/5 ML VIAL IVP PRN (05:11)
[2020-12-16 05:19] LABS: Alanine Aminotransferase 16 Units/L (7-52); Albumin 2.7 g/dL (3.5-5.7); Albumin/Globulin Ratio 0.7 (1.1-2.2); Alkaline Phosphatase 72 Units/L (34-104); Aspartate Amino Transferase 17 Units/L (13-39); BUN/Creatinine Ratio 40 (6-26); Bilirubin,Total 0.5 mg/dL (0.3-1.0); Blood Urea Nitrogen 44 mg/dL (6-20); Calcium 9.2 mg/dL (8.6-10.3); Carbon Dioxide > 45 mEq/L (23-29); Chloride 95 mEq/L (98-107); Globulin 3.8 g/dL (2.4-3.5); Glucose 252 mg/dL (70-105); Osmolality,Calculated 320 (280-300); Potassium 4.5 mEq/L (3.5-5.1); Sodium 145 mEq/L (136-145); Total Protein 6.5 g/dL (6.4-8.9); eGFR For African Americans > 60 (> 60); eGFR For Non-African Americans > 60 (> 60)
[2020-12-16] MEDS: Budesonide/Formoterol 160/4.5 1 PUFF INH IH SCH ×2 (07:31→19:45)
[2020-12-16] MEDS: Potassium Chloride Elixir 20 MEQ/15 ML UDC GTUBE SCH ×2 (08:31→20:54)
[2020-12-16] MEDS: Pantoprazole 40 MG VIAL IVP SCH (08:31)
[2020-12-16] MEDS: Furosemide 20 MG/2 ML VIAL IVP SCH (08:31)
[2020-12-16] MEDS: Docusate Oral Soln 100 MG/10 ML UDC GTUBE SCH ×2 (08:32→20:54)
[2020-12-16] MEDS: Bisacodyl 10 MG RECTAL SUPPOSITORY RC SCH (08:32)
[2020-12-16] MEDS: Chlorhexidine Rinse 15 ML MOUTHWASH MM SCH ×2 (08:32→20:54)
[2020-12-16] MEDS: Nystatin POWDER 30 GM BOTTLE TP SCH ×2 (08:33→20:59)
[2020-12-16] MEDS: Cholecalciferol (D-3) 1,000 UNIT (25MCG) TABLET GTUBE SCH (08:33)
[2020-12-16] MEDS: Lacri-Lube 3.5 GM TUBE BOTH EYES SCH ×2 (08:33→20:36)
[2020-12-16] MEDS: Insulin DETEMIR 100 UNIT/ML X5UNITS SUBQ SCH (08:37)
[2020-12-16] MEDS: Norepinephrine 4 MG/254 ML IV.SOLN IVC SCH (11:35)
[2020-12-16] MEDS: D5% in 0.45% NACL 1,000 ML IVC SCH (11:35)
[2020-12-16] MEDS: Heparin 25,000UNIT/250ML 1/2NS 25,000 UNIT/250 ML IV.SOLN IVC SCH (12:00)
[2020-12-16] MEDS ORDERED: Insulin DETEMIR 100 UNIT/ML X5UNITS SUBQ ONE (13:00)
[2020-12-16] MEDS ORDERED: Insulin DETEMIR 100 UNIT/ML X5UNITS SUBQ SCH (21:00)
[2020-12-17] MEDS: Metoclopramide 10 MG/10 ML UD.LIQ GTUBE SCH ×5 (00:39→23:33)
[2020-12-17] MEDS: Cefepime HCl 2,000 MG in Water for inj. (sterile) 20 ML IVP SCH ×2 (00:39→08:22)
[2020-12-17] MEDS: Insulin LISPRO 300 UNITS/3 ML VIAL SUBQ SCH ×2 (00:50→03:38)
[2020-12-17] MEDS: Ipratropium 1 PUFF INHALER IH SCH ×8 (01:07→23:25)
[2020-12-17] MEDS: FentaNYL (PF) 2,500 MCG/50 ML IV.SOLN IVC SCH ×2 (01:23→12:32)
[2020-12-17] MEDS: Dexmedetomidine HCl 400 MCG/100 ML MLS IVC SCH ×5 (02:14→20:27)
[2020-12-17] MEDS: Lacri-Lube 3.5 GM TUBE BOTH EYES SCH ×2 (03:37→20:17)
[2020-12-17] MEDS: Heparin 25,000UNIT/250ML 1/2NS 25,000 UNIT/250 ML IV.SOLN IVC SCH ×2 (03:38→20:32)
[2020-12-17 04:13] LABS: Basophils # 0.1 K/mcL (0.0-0.2); Basophils % 0.7 %; Eosinophils # 0.1 K/mcL (0.0-0.6); Eosinophils % 0.8 %; Hematocrit 32.7 % (37.5-50.1); Immature Granulocytes % 3.4 % (0-4); Lymphocytes # 1.1 K/mcL (0.6-4.6); Mean Corpuscular HGB Conc 27.5 g/dL (31.6-35.5); Mean Corpuscular Hemoglobin 27.2 pg (28.0-33.3); Mean Corpuscular Volume 98.8 fL (83.0-100.0); Mean Platelet Volume 10.9 fL (9.4-12.4); Monocytes # 1.1 K/mcL (0.0-1.3); Monocytes % 7.7 %; Neutrophils # 11.3 K/mcL (1.6-8.9); Nucleated Red Blood Cells 0.6 /100 WBC (0); Platelet Count 853 K/mcL (140-400); Red Blood Count 3.31 M/mcL (4.19-5.50); Segmented Neutrophils % 79.4 %; White Blood Count 14.2 K/mcL (4.3-11.1)
[2020-12-17 04:23] LABS: VBG Ionized Calcium 1.27 mmol/L (1.15-1.35)
[2020-12-17 04:38] LABS: Anisocytosis 2+ (Not Present); Microcytosis Present (Not Present); Platelet Estimate Increased (Normal); Polychromasia 1+ (Not Present)
[2020-12-17 04:46] LABS: Alanine Aminotransferase 18 Units/L (7-52); Albumin 2.7 g/dL (3.5-5.7); Albumin/Globulin Ratio 0.7 (1.1-2.2); Alkaline Phosphatase 81 Units/L (34-104); Aspartate Amino Transferase 18 Units/L (13-39); BUN/Creatinine Ratio 48 (6-26); Bilirubin,Direct 0.1 mg/dL (0.0-0.2); Bilirubin,Indirect 0.4 mg/dL (0.0-1.0); Bilirubin,Total 0.5 mg/dL (0.3-1.0); Blood Urea Nitrogen 45 mg/dL (6-20); Calcium 9.2 mg/dL (8.6-10.3); Carbon Dioxide > 45 mEq/L (23-29); Chloride 96 mEq/L (98-107); Globulin 4.1 g/dL (2.4-3.5); Glucose 269 mg/dL (70-105); Magnesium 2.4 mg/dL (1.6-2.6); Osmolality,Calculated 319 (280-300); Phosphorous 3.9 mg/dL (2.7-4.5); Potassium 5.8 mEq/L (3.5-5.1); Sodium 144 mEq/L (136-145); Total Protein 6.8 g/dL (6.4-8.9); eGFR For African Americans > 60 (> 60); eGFR For Non-African Americans > 60 (> 60)
[2020-12-17 05:05] LABS: ABG Base Excess 23 mEq/L (-2 to 3); ABG HCO3 56 mEq/L (21-27); ABG Oxygen Saturation 88 % (95-98); ABG PCO2 139 mmHg (35-45); ABG PH 7.22 pH Units (7.32-7.45); ABG PO2 73 mmHg (85-104); ABG TCO2 > 50 mEq/L (20-26); Blood Gas VT 450 cc
[2020-12-17] MEDS: *HR* Metoprolol 5 MG/5 ML VIAL IVP PRN ×2 (05:33→17:30)
[2020-12-17 07:08] LABS: ABG PCO2 > 150 mmHg (35-45); ABG PH 7.17 pH Units (7.32-7.45); ABG PO2 81 mmHg (85-104); Blood Gas VT 450 cc
[2020-12-17] MEDS: Budesonide/Formoterol 160/4.5 1 PUFF INH IH SCH ×2 (07:36→19:25)
[2020-12-17] MEDS: Chlorhexidine Rinse 15 ML MOUTHWASH MM SCH ×2 (08:21→20:17)
[2020-12-17] MEDS: Nystatin POWDER 30 GM BOTTLE TP SCH ×2 (08:21→20:17)
[2020-12-17] MEDS: Docusate Oral Soln 100 MG/10 ML UDC GTUBE SCH ×2 (08:22→20:16)
[2020-12-17] MEDS: Potassium Chloride Elixir 20 MEQ/15 ML UDC GTUBE SCH (08:22)
[2020-12-17] MEDS: Cholecalciferol (D-3) 1,000 UNIT (25MCG) TABLET GTUBE SCH (08:23)
[2020-12-17] MEDS: Furosemide 20 MG/2 ML VIAL IVP SCH (08:24)
[2020-12-17] MEDS: Bisacodyl 10 MG RECTAL SUPPOSITORY RC SCH (08:25)
[2020-12-17] MEDS: Pantoprazole 40 MG VIAL IVP SCH (08:26)
[2020-12-17] MEDS: levoFLOXacin 750 MG/150 ML 750 MG/150 ML BAG IVPB SCH (08:59)
[2020-12-17] MEDS: Cisatracurium 200 MG in 0.9 % Sodium Chloride 180 ML IVC SCH ×2 (09:12→20:17)
[2020-12-17] MEDS ORDERED: SODIUM ZIRCONIUM CYCLOSILICATE 5 GM POWD.PACK PO SCH ×2 (11:45)
[2020-12-17] MEDS: Acetaminophen 325 MG TABLET PO PRN ×2 (11:46→17:54)
[2020-12-17 12:22] LABS: ABG Base Excess 21 mEq/L (-2 to 3); ABG HCO3 53 mEq/L (21-27); ABG Oxygen Saturation 85 % (95-98); ABG PCO2 120 mmHg (35-45); ABG PH 7.26 pH Units (7.32-7.45); ABG PO2 64 mmHg (85-104); ABG TCO2 > 50 mEq/L (20-26); Blood Gas Modality ASSIST CONTROL; Blood Gas VT 450 cc
[2020-12-17] MEDS: Midazolam HCl 50 MG/100 ML IV.SOLN IVC SCH (15:48)
[2020-12-17 19:28] LABS: BUN/Creatinine Ratio 57 (6-26); Blood Urea Nitrogen 52 mg/dL (6-20); Calcium 9.5 mg/dL (8.6-10.3); Carbon Dioxide > 45 mEq/L (23-29); Chloride 96 mEq/L (98-107); Glucose 176 mg/dL (70-105); Osmolality,Calculated 320 (280-300); Potassium 4.8 mEq/L (3.5-5.1); Sodium 146 mEq/L (136-145); eGFR For African Americans > 60 (> 60); eGFR For Non-African Americans > 60 (> 60)
[2020-12-18] MEDS: FentaNYL (PF) 2,500 MCG/50 ML IV.SOLN IVC SCH ×2 (00:12→13:19)
[2020-12-18] MEDS: Dexmedetomidine HCl 400 MCG/100 ML MLS IVC SCH ×4 (01:05→19:54)
[2020-12-18] MEDS: Ipratropium 1 PUFF INHALER IH SCH ×6 (03:17→23:41)
[2020-12-18 03:26] LABS: Mean Platelet Volume 10.7 fL (9.4-12.4); Nucleated Red Blood Cells 0.5 /100 WBC (0); Red Cell Distribution Width 15.1 % (11.5-14.5)
[2020-12-18 03:27] LABS: Basophils # 0.1 K/mcL (0.0-0.2); Basophils % 0.5 %; Eosinophils % 0.2 %; Hematocrit 30.6 % (37.5-50.1); Hemoglobin 8.6 g/dL (12.9-16.9); Immature Granulocytes % 3.4 % (0-4); Lymphocytes # 1.2 K/mcL (0.6-4.6); Lymphocytes % 9.3 %; Mean Corpuscular HGB Conc 28.1 g/dL (31.6-35.5); Mean Corpuscular Hemoglobin 27.2 pg (28.0-33.3); Mean Corpuscular Volume 96.8 fL (83.0-100.0); Monocytes # 0.8 K/mcL (0.0-1.3); Neutrophils # 10.6 K/mcL (1.6-8.9); Platelet Count 902 K/mcL (140-400); Red Blood Count 3.16 M/mcL (4.19-5.50); Segmented Neutrophils % 80.6 %; White Blood Count 13.1 K/mcL (4.3-11.1)
[2020-12-18 03:37] LABS: VBG Ionized Calcium 1.28 mmol/L (1.15-1.35)
[2020-12-18 03:48] LABS: Platelet Estimate Marked Increase (Normal)
[2020-12-18 03:49] LABS: Anisocytosis 2+ (Not Present); Basophilic Stippling 1+ (Not Present); Hypochromasia Present (Not Present); Polychromasia 1+ (Not Present); Stomatocytes 1+ (Not Present)
[2020-12-18 04:05] LABS: ABG Base Excess 21 mEq/L (-2 to 3); ABG HCO3 51 mEq/L (21-27); ABG Oxygen Saturation 82 % (95-98); ABG PCO2 101 mmHg (35-45); ABG PH 7.31 pH Units (7.32-7.45); ABG PO2 56 mmHg (85-104); ABG TCO2 > 50 mEq/L (20-26); Blood Gas Modality ASSIST CONTROL; Blood Gas VT 450 cc
[2020-12-18 04:06] LABS: Alanine Aminotransferase 18 Units/L (7-52); Albumin 2.7 g/dL (3.5-5.7); Albumin/Globulin Ratio 0.7 (1.1-2.2); Alkaline Phosphatase 73 Units/L (34-104); Aspartate Amino Transferase 16 Units/L (13-39); BUN/Creatinine Ratio 59 (6-26); Bilirubin,Direct 0.1 mg/dL (0.0-0.2); Bilirubin,Indirect 0.3 mg/dL (0.0-1.0); Bilirubin,Total 0.4 mg/dL (0.3-1.0); Blood Urea Nitrogen 47 mg/dL (6-20); Calcium 9.3 mg/dL (8.6-10.3); Carbon Dioxide > 45 mEq/L (23-29); Chloride 96 mEq/L (98-107); Glucose 253 mg/dL (70-105); Magnesium 2.3 mg/dL (1.6-2.6); Osmolality,Calculated 321 (280-300); Phosphorous 1.8 mg/dL (2.7-4.5); Potassium 4.2 mEq/L (3.5-5.1); Sodium 145 mEq/L (136-145); Total Protein 6.7 g/dL (6.4-8.9); eGFR For African Americans > 60 (> 60); eGFR For Non-African Americans > 60 (> 60)
[2020-12-18] MEDS: *HR* Metoprolol 5 MG/5 ML VIAL IVP PRN (04:10)
[2020-12-18] MEDS: Metoclopramide 10 MG/10 ML UD.LIQ GTUBE SCH ×3 (05:02→17:31)
[2020-12-18] MEDS: Budesonide/Formoterol 160/4.5 1 PUFF INH IH SCH ×2 (07:23→19:36)
[2020-12-18] MEDS: Chlorhexidine Rinse 15 ML MOUTHWASH MM SCH ×2 (07:59→19:35)
[2020-12-18] MEDS: Cholecalciferol (D-3) 1,000 UNIT (25MCG) TABLET GTUBE SCH (07:59)
[2020-12-18] MEDS: Docusate Oral Soln 100 MG/10 ML UDC GTUBE SCH ×2 (07:59→19:35)
[2020-12-18] MEDS: Bisacodyl 10 MG RECTAL SUPPOSITORY RC SCH (07:59)
[2020-12-18] MEDS: Pantoprazole 40 MG VIAL IVP SCH (07:59)
[2020-12-18] MEDS: Lacri-Lube 3.5 GM TUBE BOTH EYES SCH ×2 (08:00→19:35)
[2020-12-18] MEDS: Cisatracurium 200 MG in 0.9 % Sodium Chloride 180 ML IVC SCH ×2 (08:18→19:15)
[2020-12-18] MEDS: Furosemide 20 MG/2 ML VIAL IVP SCH (08:57)
[2020-12-18] MEDS: levoFLOXacin 750 MG/150 ML 750 MG/150 ML BAG IVPB SCH (08:58)
[2020-12-18] MEDS: Nystatin POWDER 30 GM BOTTLE TP SCH ×2 (08:58→19:36)
[2020-12-18] MEDS ORDERED: Bisacodyl 10 MG RECTAL SUPPOSITORY RC PRN (11:21)
[2020-12-18] MEDS: Midazolam HCl 50 MG/100 ML IV.SOLN IVC SCH (11:50)
[2020-12-18] MEDS: Heparin 25,000UNIT/250ML 1/2NS 25,000 UNIT/250 ML IV.SOLN IVC SCH (13:40)
[2020-12-19] MEDS: Metoclopramide 10 MG/10 ML UD.LIQ GTUBE SCH ×4 (00:05→18:22)
[2020-12-19] MEDS: Dexmedetomidine HCl 400 MCG/100 ML MLS IVC SCH ×6 (00:31→21:42)
[2020-12-19] MEDS: FentaNYL (PF) 2,500 MCG/50 ML IV.SOLN IVC SCH ×3 (01:09→19:00)
[2020-12-19] MEDS: Ipratropium 1 PUFF INHALER IH SCH ×6 (03:06→23:14)
[2020-12-19 03:35] LABS: VBG Ionized Calcium 1.24 mmol/L (1.15-1.35)
[2020-12-19 03:36] LABS: ABG Base Excess 21 mEq/L (-2 to 3); ABG HCO3 51 mEq/L (21-27); ABG Oxygen Saturation 84 % (95-98); ABG PCO2 95 mmHg (35-45); ABG PH 7.34 pH Units (7.32-7.45); ABG PO2 56 mmHg (85-104); ABG TCO2 > 50 mEq/L (20-26); Blood Gas Modality ASSIST CONTROL; Blood Gas VT 450 cc
[2020-12-19 03:39] LABS: Basophils % 0.3 %; Eosinophils % 0.2 %; Hemoglobin 7.1 g/dL (12.9-16.9); Nucleated Red Blood Cells 0.6 /100 WBC (0)
[2020-12-19 03:40] LABS: Hematocrit 25.2 % (37.5-50.1); Immature Granulocytes % 4.1 % (0-4); Lymphocytes % 9.1 %; Mean Corpuscular HGB Conc 28.2 g/dL (31.6-35.5); Mean Corpuscular Hemoglobin 27.4 pg (28.0-33.3); Mean Corpuscular Volume 97.3 fL (83.0-100.0); Mean Platelet Volume 11.3 fL (9.4-12.4); Monocytes # 0.6 K/mcL (0.0-1.3); Monocytes % 5.5 %; Neutrophils # 8.9 K/mcL (1.6-8.9); Platelet Count 160 K/mcL (140-400); Red Blood Count 2.59 M/mcL (4.19-5.50); Red Cell Distribution Width 15.1 % (11.5-14.5); Segmented Neutrophils % 80.8 %
[2020-12-19 04:04] LABS: Alanine Aminotransferase 15 Units/L (7-52); Albumin 2.5 g/dL (3.5-5.7); Albumin/Globulin Ratio 0.7 (1.1-2.2); Alkaline Phosphatase 62 Units/L (34-104); Aspartate Amino Transferase 13 Units/L (13-39); BUN/Creatinine Ratio 73 (6-26); Bilirubin,Direct 0.1 mg/dL (0.0-0.2); Bilirubin,Indirect 0.2 mg/dL (0.0-1.0); Bilirubin,Total 0.3 mg/dL (0.3-1.0); Blood Urea Nitrogen 40 mg/dL (6-20); Calcium 8.3 mg/dL (8.6-10.3); Carbon Dioxide 41 mEq/L (23-29); Chloride 94 mEq/L (98-107); Globulin 3.4 g/dL (2.4-3.5); Glucose 267 mg/dL (70-105); Magnesium 2.1 mg/dL (1.6-2.6); Osmolality,Calculated 305 (280-300); Phosphorous 2.9 mg/dL (2.7-4.5); Potassium 3.5 mEq/L (3.5-5.1); Sodium 138 mEq/L (136-145); Total Protein 5.9 g/dL (6.4-8.9); eGFR For African Americans > 60 (> 60); eGFR For Non-African Americans > 60 (> 60)
[2020-12-19 04:16] LABS: Anisocytosis 1+ (Not Present); Hypochromasia Present (Not Present); Platelet Estimate Normal (Normal); Poikilocytosis 1+ (Not Present); Polychromasia 1+ (Not Present)
[2020-12-19] MEDS: Cisatracurium 200 MG in 0.9 % Sodium Chloride 180 ML IVC SCH ×3 (04:16→18:05)
[2020-12-19] MEDS: Midazolam HCl 50 MG/100 ML IV.SOLN IVC SCH ×2 (05:02→14:21)
[2020-12-19] MEDS: *HR* Metoprolol 5 MG/5 ML VIAL IVP PRN (06:09)
[2020-12-19] MEDS: Budesonide/Formoterol 160/4.5 1 PUFF INH IH SCH ×2 (07:21→19:36)
[2020-12-19] MEDS: Pantoprazole 40 MG VIAL IVP SCH (08:05)
[2020-12-19] MEDS: Furosemide 20 MG/2 ML VIAL IVP SCH (08:05)
[2020-12-19] MEDS: Docusate Oral Soln 100 MG/10 ML UDC GTUBE SCH ×2 (08:05→19:33)
[2020-12-19] MEDS: Cholecalciferol (D-3) 1,000 UNIT (25MCG) TABLET GTUBE SCH (08:06)
[2020-12-19] MEDS: Chlorhexidine Rinse 15 ML MOUTHWASH MM SCH ×2 (08:06→19:32)
[2020-12-19] MEDS: Nystatin POWDER 30 GM BOTTLE TP SCH ×2 (08:06→19:33)
[2020-12-19] MEDS: Lacri-Lube 3.5 GM TUBE BOTH EYES SCH ×2 (08:06→19:32)
[2020-12-19 08:11] LABS: Basophils % 0.3 %
[2020-12-19 08:12] LABS: Eosinophils % 0.1 %; Hematocrit 27.6 % (37.5-50.1); Immature Granulocytes % 4.1 % (0-4); Lymphocytes % 9.4 %; Mean Corpuscular Hemoglobin 27.7 pg (28.0-33.3); Mean Corpuscular Volume 95.5 fL (83.0-100.0); Mean Platelet Volume 11.2 fL (9.4-12.4); Monocytes # 0.6 K/mcL (0.0-1.3); Monocytes % 5.5 %; Neutrophils # 8.8 K/mcL (1.6-8.9); Nucleated Red Blood Cells 0.8 /100 WBC (0); Platelet Count 841 K/mcL (140-400); Red Blood Count 2.89 M/mcL (4.19-5.50); Red Cell Distribution Width 15.9 % (11.5-14.5); Segmented Neutrophils % 80.6 %; White Blood Count 10.9 K/mcL (4.3-11.1)
[2020-12-19] MEDS: levoFLOXacin 750 MG/150 ML 750 MG/150 ML BAG IVPB SCH (08:40)
[2020-12-20] MEDS: Metoclopramide 10 MG/10 ML UD.LIQ GTUBE SCH ×4 (00:07→20:54)
[2020-12-20] MEDS: Cisatracurium 200 MG in 0.9 % Sodium Chloride 180 ML IVC SCH ×4 (01:02→23:09)
[2020-12-20] MEDS: Heparin 25,000UNIT/250ML 1/2NS 25,000 UNIT/250 ML IV.SOLN IVC SCH ×2 (01:03→15:52)
[2020-12-20] MEDS: Midazolam HCl 50 MG/100 ML IV.SOLN IVC SCH ×3 (01:04→21:34)
[2020-12-20] MEDS: Dexmedetomidine HCl 400 MCG/100 ML MLS IVC SCH ×5 (02:12→20:53)
[2020-12-20] MEDS: Ipratropium 1 PUFF INHALER IH SCH ×5 (03:16→20:25)
[2020-12-20 03:31] LABS: VBG Ionized Calcium 1.03 mmol/L (1.15-1.35)
[2020-12-20 04:25] LABS: ABG Base Excess 18 mEq/L (-2 to 3); ABG HCO3 48 mEq/L (21-27); ABG Oxygen Saturation 89 % (95-98); ABG PCO2 92 mmHg (35-45); ABG PH 7.32 pH Units (7.32-7.45); ABG PO2 66 mmHg (85-104); ABG TCO2 > 50 mEq/L (20-26); Blood Gas Modality ASSIST CONTROL; Blood Gas VT 450 cc
[2020-12-20 04:47] LABS: Mean Platelet Volume 11.2 fL (9.4-12.4)
[2020-12-20 04:48] LABS: Hematocrit 26.9 % (37.5-50.1); Hemoglobin 7.7 g/dL (12.9-16.9); Mean Corpuscular HGB Conc 28.6 g/dL (31.6-35.5); Mean Corpuscular Hemoglobin 27.3 pg (28.0-33.3); Mean Corpuscular Volume 95.4 fL (83.0-100.0); Nucleated Red Blood Cells 2.3 /100 WBC (0); Platelet Count 839 K/mcL (140-400); Red Blood Count 2.82 M/mcL (4.19-5.50); Red Cell Distribution Width 16.1 % (11.5-14.5); White Blood Count 11.6 K/mcL (4.3-11.1)
[2020-12-20 05:10] LABS: Alanine Aminotransferase 18 Units/L (7-52); Albumin 2.8 g/dL (3.5-5.7); Albumin/Globulin Ratio 0.8 (1.1-2.2); Alkaline Phosphatase 67 Units/L (34-104); Aspartate Amino Transferase 17 Units/L (13-39); BUN/Creatinine Ratio 71 (6-26); Bilirubin,Direct 0.1 mg/dL (0.0-0.2); Bilirubin,Indirect 0.3 mg/dL (0.0-1.0); Bilirubin,Total 0.4 mg/dL (0.3-1.0); Blood Urea Nitrogen 54 mg/dL (6-20); Calcium 9.5 mg/dL (8.6-10.3); Carbon Dioxide > 45 mEq/L (23-29); Chloride 96 mEq/L (98-107); Globulin 3.6 g/dL (2.4-3.5); Glucose 125 mg/dL (70-105); Magnesium 2.3 mg/dL (1.6-2.6); Osmolality,Calculated 316 (280-300); Phosphorous 3.7 mg/dL (2.7-4.5); Sodium 145 mEq/L (136-145); Total Protein 6.4 g/dL (6.4-8.9); eGFR For African Americans > 60 (> 60); eGFR For Non-African Americans > 60 (> 60)
[2020-12-20] MEDS: FentaNYL (PF) 2,500 MCG/50 ML IV.SOLN IVC SCH ×2 (06:10→18:40)
[2020-12-20 06:11] LABS: Hypochromasia Present (Not Present); Lymphocytes # 2.3 K/mcL (0.6-4.6); Monocytes # 0.6 K/mcL (0.0-1.3); Neutrophils # 8.7 K/mcL (1.6-8.9); Platelet Estimate Increased (Normal); Stomatocytes 1+ (Not Present)
[2020-12-20] MEDS: Calcium Gluconate 1gm/50mL 1 GM/50 ML BAG IVPB SCH ×2 (06:20→06:57)
[2020-12-20] MEDS: Budesonide/Formoterol 160/4.5 1 PUFF INH IH SCH ×2 (07:32→20:25)
[2020-12-20] MEDS: Chlorhexidine Rinse 15 ML MOUTHWASH MM SCH ×2 (08:57→20:54)
[2020-12-20] MEDS: Pantoprazole 40 MG VIAL IVP SCH (08:57)
[2020-12-20] MEDS: Furosemide 20 MG/2 ML VIAL IVP SCH (08:57)
[2020-12-20] MEDS: Docusate Oral Soln 100 MG/10 ML UDC GTUBE SCH ×2 (08:57→21:02)
[2020-12-20] MEDS: Cholecalciferol (D-3) 1,000 UNIT (25MCG) TABLET GTUBE SCH (08:58)
[2020-12-20] MEDS: levoFLOXacin 750 MG/150 ML 750 MG/150 ML BAG IVPB SCH (08:58)
[2020-12-20] MEDS: Nystatin POWDER 30 GM BOTTLE TP SCH (08:59)
[2020-12-20] MEDS: Lacri-Lube 3.5 GM TUBE BOTH EYES SCH ×2 (09:00→20:54)
[2020-12-20] MEDS ORDERED: Lidocaine -MPF 1% 5 ML AMPUL ONE (18:39)
[2020-12-21] MEDS: Metoclopramide 10 MG/10 ML UD.LIQ GTUBE SCH ×5 (00:13→23:26)
[2020-12-21] MEDS: Ipratropium 1 PUFF INHALER IH SCH ×7 (00:31→23:39)
[2020-12-21] MEDS: Dexmedetomidine HCl 400 MCG/100 ML MLS IVC SCH ×6 (01:22→23:58)
[2020-12-21] MEDS: Nystatin POWDER 30 GM BOTTLE TP SCH ×3 (02:29→21:22)
[2020-12-21 04:04] LABS: Eosinophils % 0.2 %; Mean Corpuscular Volume 95.8 fL (83.0-100.0); Monocytes % 5.5 %
[2020-12-21 04:05] LABS: Basophils % 0.2 %; Hematocrit 25.1 % (37.5-50.1); Hemoglobin 7.2 g/dL (12.9-16.9); Immature Granulocytes % 5.1 % (0-4); Lymphocytes # 1.2 K/mcL (0.6-4.6); Lymphocytes % 11.8 %; Mean Corpuscular HGB Conc 28.7 g/dL (31.6-35.5); Mean Corpuscular Hemoglobin 27.5 pg (28.0-33.3); Monocytes # 0.5 K/mcL (0.0-1.3); Neutrophils # 7.6 K/mcL (1.6-8.9); Nucleated Red Blood Cells 2.5 /100 WBC (0); Platelet Count 734 K/mcL (140-400); Red Blood Count 2.62 M/mcL (4.19-5.50); Red Cell Distribution Width 16.9 % (11.5-14.5); Segmented Neutrophils % 77.2 %; White Blood Count 9.8 K/mcL (4.3-11.1)
[2020-12-21 04:07] LABS: VBG Ionized Calcium 1.33 mmol/L (1.15-1.35)
[2020-12-21 04:30] LABS: Alanine Aminotransferase 20 Units/L (7-52); Albumin 2.6 g/dL (3.5-5.7); Albumin/Globulin Ratio 0.8 (1.1-2.2); Alkaline Phosphatase 61 Units/L (34-104); Aspartate Amino Transferase 18 Units/L (13-39); BUN/Creatinine Ratio 68 (6-26); Bilirubin,Direct 0.1 mg/dL (0.0-0.2); Bilirubin,Indirect 0.2 mg/dL (0.0-1.0); Bilirubin,Total 0.3 mg/dL (0.3-1.0); Blood Urea Nitrogen 48 mg/dL (6-20); Calcium 9.4 mg/dL (8.6-10.3); Carbon Dioxide > 45 mEq/L (23-29); Chloride 97 mEq/L (98-107); Globulin 3.3 g/dL (2.4-3.5); Glucose 160 mg/dL (70-105); Magnesium 2.2 mg/dL (1.6-2.6); Osmolality,Calculated 318 (280-300); Phosphorous 4.6 mg/dL (2.7-4.5); Potassium 4.3 mEq/L (3.5-5.1); Sodium 146 mEq/L (136-145); Total Protein 5.9 g/dL (6.4-8.9); eGFR For African Americans > 60 (> 60); eGFR For Non-African Americans > 60 (> 60)
[2020-12-21 04:49] LABS: Platelet Estimate Increased (Normal)
[2020-12-21 05:41] LABS: ABG Base Excess 22 mEq/L (-2 to 3); ABG HCO3 52 mEq/L (21-27); ABG Oxygen Saturation 84 % (95-98); ABG PCO2 110 mmHg (35-45); ABG PH 7.29 pH Units (7.32-7.45); ABG PO2 60 mmHg (85-104); ABG TCO2 > 50 mEq/L (20-26); Blood Gas Modality ASSIST CONTROL; Blood Gas VT 450 cc
[2020-12-21] MEDS: Cisatracurium 200 MG in 0.9 % Sodium Chloride 180 ML IVC SCH ×2 (05:56→21:21)
[2020-12-21] MEDS: FentaNYL (PF) 2,500 MCG/50 ML IV.SOLN IVC SCH ×2 (05:58→18:22)
[2020-12-21] MEDS: Insulin LISPRO 300 UNITS/3 ML VIAL SUBQ SCH ×5 (06:31→23:16)
[2020-12-21] MEDS: Budesonide/Formoterol 160/4.5 1 PUFF INH IH SCH ×2 (07:40→19:38)
[2020-12-21] MEDS ORDERED: acetaZOLAMIDE 500 MG in Water for inj. (sterile) 5 ML IVP ONE (08:12)
[2020-12-21] MEDS: Heparin 25,000UNIT/250ML 1/2NS 25,000 UNIT/250 ML IV.SOLN IVC SCH (09:47)
[2020-12-21] MEDS: Midazolam HCl 50 MG/100 ML IV.SOLN IVC SCH ×3 (09:48→19:37)
[2020-12-21] MEDS: acetaZOLAMIDE 500 MG in Water for inj. (sterile) 5 ML IVP ONE ×2 (09:50→10:06)
[2020-12-21] MEDS: levoFLOXacin 750 MG/150 ML 750 MG/150 ML BAG IVPB SCH (10:04)
[2020-12-21] MEDS: Cholecalciferol (D-3) 1,000 UNIT (25MCG) TABLET GTUBE SCH (10:05)
[2020-12-21] MEDS: Pantoprazole 40 MG VIAL IVP SCH (10:05)
[2020-12-21] MEDS: Chlorhexidine Rinse 15 ML MOUTHWASH MM SCH ×2 (10:05→21:20)
[2020-12-21] MEDS: Docusate Oral Soln 100 MG/10 ML UDC GTUBE SCH ×2 (10:05→21:20)
[2020-12-21] MEDS: Lacri-Lube 3.5 GM TUBE BOTH EYES SCH ×2 (10:06→21:20)
[2020-12-21] MEDS: Furosemide 20 MG/2 ML VIAL IVP SCH (10:35)
[2020-12-21] MEDS ORDERED: Isovue-370 500 ML BOTTLE IVP ONE (10:50)
[2020-12-21 11:10] LABS: ABG Base Excess 17 mEq/L (-2 to 3); ABG HCO3 47 mEq/L (21-27); ABG Oxygen Saturation 88 % (95-98); ABG PCO2 98 mmHg (35-45); ABG PH 7.29 pH Units (7.32-7.45); ABG PO2 67 mmHg (85-104); ABG TCO2 > 50 mEq/L (20-26); Blood Gas Modality ASSIST CONTROL; Blood Gas VT 450 cc
[2020-12-21] MEDS: Insulin DETEMIR 100 UNIT/ML X5UNITS SUBQ SCH (23:26)
[2020-12-22] MEDS: Insulin LISPRO 300 UNITS/3 ML VIAL SUBQ SCH ×7 (00:08→23:25)
[2020-12-22] MEDS: Cisatracurium 200 MG in 0.9 % Sodium Chloride 180 ML IVC SCH ×5 (01:32→18:12)
[2020-12-22] MEDS: Heparin 25,000UNIT/250ML 1/2NS 25,000 UNIT/250 ML IV.SOLN IVC SCH (03:04)
[2020-12-22] MEDS: Ipratropium 1 PUFF INHALER IH SCH ×6 (03:38→23:19)
[2020-12-22] MEDS: FentaNYL (PF) 2,500 MCG/50 ML IV.SOLN IVC SCH ×2 (04:11→13:55)
[2020-12-22] MEDS: Midazolam HCl 50 MG/100 ML IV.SOLN IVC SCH ×2 (04:12→11:21)
[2020-12-22] MEDS: Dexmedetomidine HCl 400 MCG/100 ML MLS IVC SCH ×6 (04:13→23:19)
[2020-12-22 04:50] LABS: VBG Ionized Calcium 1.35 mmol/L (1.15-1.35)
[2020-12-22 05:07] LABS: Mean Corpuscular Volume 97.2 fL (83.0-100.0); Nucleated Red Blood Cells 2.3 /100 WBC (0)
[2020-12-22 05:09] LABS: Basophils # 0.1 K/mcL (0.0-0.2); Basophils % 0.5 %; Eosinophils % 0.3 %; Hematocrit 24.6 % (37.5-50.1); Hemoglobin 6.8 g/dL (12.9-16.9); Immature Granulocytes % 5.6 % (0-4); Lymphocytes # 1.3 K/mcL (0.6-4.6); Lymphocytes % 14.4 %; Mean Corpuscular HGB Conc 27.6 g/dL (31.6-35.5); Mean Corpuscular Hemoglobin 26.9 pg (28.0-33.3); Mean Platelet Volume 11.6 fL (9.4-12.4); Monocytes # 0.5 K/mcL (0.0-1.3); Monocytes % 5.7 %; Platelet Count 670 K/mcL (140-400); Red Blood Count 2.53 M/mcL (4.19-5.50); Red Cell Distribution Width 17.7 % (11.5-14.5); Segmented Neutrophils % 73.5 %; White Blood Count 9.3 K/mcL (4.3-11.1)
[2020-12-22 05:10] LABS: ABG Base Excess 13 mEq/L (-2 to 3); ABG HCO3 45 mEq/L (21-27); ABG Oxygen Saturation 88 % (95-98); ABG PCO2 96 mmHg (35-45); ABG PH 7.28 pH Units (7.32-7.45); ABG PO2 67 mmHg (85-104); ABG TCO2 48 mEq/L (20-26); Blood Gas VT 450 cc
[2020-12-22 05:13] LABS: Neutrophils # 6.8 K/mcL (1.6-8.9)
[2020-12-22 05:29] LABS: Alanine Aminotransferase 18 Units/L (7-52); Albumin 2.6 g/dL (3.5-5.7); Albumin/Globulin Ratio 0.8 (1.1-2.2); Alkaline Phosphatase 58 Units/L (34-104); Aspartate Amino Transferase 13 Units/L (13-39); BUN/Creatinine Ratio 73 (6-26); Bilirubin,Direct 0.1 mg/dL (0.0-0.2); Bilirubin,Indirect 0.3 mg/dL (0.0-1.0); Bilirubin,Total 0.4 mg/dL (0.3-1.0); Blood Urea Nitrogen 52 mg/dL (6-20); Calcium 9.4 mg/dL (8.6-10.3); Carbon Dioxide 44 mEq/L (23-29); Chloride 99 mEq/L (98-107); Globulin 3.4 g/dL (2.4-3.5); Glucose 215 mg/dL (70-105); Magnesium 2.3 mg/dL (1.6-2.6); Osmolality,Calculated 321 (280-300); Phosphorous 3.5 mg/dL (2.7-4.5); Potassium 3.7 mEq/L (3.5-5.1); Sodium 145 mEq/L (136-145); eGFR For African Americans > 60 (> 60); eGFR For Non-African Americans > 60 (> 60)
[2020-12-22 05:42] LABS: Platelet Estimate Increased (Normal)
[2020-12-22] MEDS: Metoclopramide 10 MG/10 ML UD.LIQ GTUBE SCH ×4 (06:14→23:25)
[2020-12-22] MEDS: Budesonide/Formoterol 160/4.5 1 PUFF INH IH SCH ×2 (07:15→19:38)
[2020-12-22] MEDS ORDERED: Potassium Chloride Elixir 20 MEQ/15 ML UDC GTUBE ONE (07:25)
[2020-12-22] MEDS ORDERED: Lidocaine -MPF 1% 5 ML AMPUL ONE ×2 (07:52→07:53)
[2020-12-22] MEDS ORDERED: acetaZOLAMIDE 500 MG in Water for inj. (sterile) 5 ML IVP ONE (08:59)
[2020-12-22] MEDS: Pantoprazole 40 MG VIAL IVP SCH (09:27)
[2020-12-22] MEDS: Docusate Oral Soln 100 MG/10 ML UDC GTUBE SCH ×2 (09:27→19:48)
[2020-12-22] MEDS: Cholecalciferol (D-3) 1,000 UNIT (25MCG) TABLET GTUBE SCH (09:28)
[2020-12-22] MEDS: levoFLOXacin 750 MG/150 ML 750 MG/150 ML BAG IVPB SCH (09:28)
[2020-12-22] MEDS: Chlorhexidine Rinse 15 ML MOUTHWASH MM SCH ×2 (09:28→19:48)
[2020-12-22] MEDS: Lacri-Lube 3.5 GM TUBE BOTH EYES SCH ×2 (09:30→19:50)
[2020-12-22] MEDS: Nystatin POWDER 30 GM BOTTLE TP SCH ×2 (09:31→19:49)
[2020-12-22] MEDS: Insulin DETEMIR 100 UNIT/ML X5UNITS SUBQ SCH ×2 (09:35→19:48)
[2020-12-22 17:34] LABS: Hematocrit 29.4 % (37.5-50.1)
[2020-12-22 17:35] LABS: Hemoglobin 8.4 g/dL (12.9-16.9)
[2020-12-23] MEDS: FentaNYL (PF) 2,500 MCG/50 ML IV.SOLN IVC SCH ×3 (00:57→23:31)
[2020-12-23] MEDS: Cisatracurium 200 MG in 0.9 % Sodium Chloride 180 ML IVC SCH ×4 (01:27→23:31)
[2020-12-23] MEDS: Ipratropium 1 PUFF INHALER IH SCH ×6 (03:12→23:12)
[2020-12-23 03:21] LABS: Eosinophils % 0.4 %
[2020-12-23 03:23] LABS: Basophils % 0.4 %; Hematocrit 26.8 % (37.5-50.1); Hemoglobin 7.9 g/dL (12.9-16.9); Immature Granulocytes % 4.8 % (0-4); Mean Corpuscular HGB Conc 29.5 g/dL (31.6-35.5); Mean Corpuscular Hemoglobin 28.7 pg (28.0-33.3); Mean Corpuscular Volume 97.5 fL (83.0-100.0); Mean Platelet Volume 11.1 fL (9.4-12.4); Monocytes # 0.5 K/mcL (0.0-1.3); Monocytes % 5.5 %; Neutrophils # 7.7 K/mcL (1.6-8.9); Platelet Count 583 K/mcL (140-400); Red Blood Count 2.75 M/mcL (4.19-5.50); Red Cell Distribution Width 17.5 % (11.5-14.5); Segmented Neutrophils % 78.9 %; White Blood Count 9.8 K/mcL (4.3-11.1)
[2020-12-23] MEDS: Midazolam HCl 50 MG/100 ML IV.SOLN IVC SCH ×2 (03:24→13:24)
[2020-12-23] MEDS: Insulin LISPRO 300 UNITS/3 ML VIAL SUBQ SCH ×6 (03:25→23:32)
[2020-12-23] MEDS: Dexmedetomidine HCl 400 MCG/100 ML MLS IVC SCH ×5 (03:25→20:44)
[2020-12-23 03:29] LABS: VBG Ionized Calcium 1.32 mmol/L (1.15-1.35)
[2020-12-23 03:45] LABS: Alanine Aminotransferase 17 Units/L (7-52); Albumin 2.6 g/dL (3.5-5.7); Albumin/Globulin Ratio 0.8 (1.1-2.2); Alkaline Phosphatase 58 Units/L (34-104); Aspartate Amino Transferase 13 Units/L (13-39); BUN/Creatinine Ratio 77 (6-26); Bilirubin,Direct 0.1 mg/dL (0.0-0.2); Bilirubin,Indirect 0.3 mg/dL (0.0-1.0); Bilirubin,Total 0.4 mg/dL (0.3-1.0); Blood Urea Nitrogen 53 mg/dL (6-20); Calcium 9.3 mg/dL (8.6-10.3); Carbon Dioxide 40 mEq/L (23-29); Chloride 101 mEq/L (98-107); Globulin 3.3 g/dL (2.4-3.5); Glucose 316 mg/dL (70-105); Magnesium 2.2 mg/dL (1.6-2.6); Osmolality,Calculated 324 (280-300); Phosphorous 4.1 mg/dL (2.7-4.5); Potassium 4.4 mEq/L (3.5-5.1); Sodium 144 mEq/L (136-145); Total Protein 5.9 g/dL (6.4-8.9); eGFR For African Americans > 60 (> 60); eGFR For Non-African Americans > 60 (> 60)
[2020-12-23 04:12] LABS: ABG Base Excess 10 mEq/L (-2 to 3); ABG HCO3 40 mEq/L (21-27); ABG Oxygen Saturation 82 % (95-98); ABG PCO2 93 mmHg (35-45); ABG PH 7.24 pH Units (7.32-7.45); ABG PO2 58 mmHg (85-104); ABG TCO2 43 mEq/L (20-26); Blood Gas VT 450 cc
[2020-12-23] MEDS: Metoclopramide 10 MG/10 ML UD.LIQ GTUBE SCH ×4 (06:10→23:32)
[2020-12-23] MEDS: Budesonide/Formoterol 160/4.5 1 PUFF INH IH SCH ×2 (07:34→19:42)
[2020-12-23] MEDS: Cholecalciferol (D-3) 1,000 UNIT (25MCG) TABLET GTUBE SCH (08:43)
[2020-12-23] MEDS: Pantoprazole 40 MG VIAL IVP SCH (08:43)
[2020-12-23] MEDS: Docusate Oral Soln 100 MG/10 ML UDC GTUBE SCH ×2 (08:43→19:56)
[2020-12-23] MEDS: Chlorhexidine Rinse 15 ML MOUTHWASH MM SCH ×2 (08:43→19:56)
[2020-12-23] MEDS: levoFLOXacin 750 MG/150 ML 750 MG/150 ML BAG IVPB SCH (08:44)
[2020-12-23] MEDS: Lacri-Lube 3.5 GM TUBE BOTH EYES SCH ×2 (08:45→19:56)
[2020-12-23] MEDS: Insulin DETEMIR 100 UNIT/ML X5UNITS SUBQ SCH ×2 (08:47→19:56)
[2020-12-23] MEDS ORDERED: Insulin DETEMIR 100 UNIT/ML X5UNITS SUBQ ONE ×2 (10:30→16:00)
[2020-12-23] MEDS ORDERED: Heparin 1,000 UNITS/500 mL 500 ML ONE (10:33)
[2020-12-23] MEDS: Nystatin POWDER 30 GM BOTTLE TP SCH ×2 (10:47→19:57)
[2020-12-23] MEDS: Acetaminophen 325 MG TABLET PO PRN (17:49)
[2020-12-23] MEDS ORDERED: Insulin DETEMIR 100 UNIT/ML X5UNITS SUBQ SCH (21:00)
[2020-12-24] MEDS: Midazolam HCl 50 MG/100 ML IV.SOLN IVC SCH ×3 (00:35→22:24)
[2020-12-24] MEDS: Dexmedetomidine HCl 400 MCG/100 ML MLS IVC SCH ×6 (01:00→23:08)
[2020-12-24] MEDS: Insulin LISPRO 300 UNITS/3 ML VIAL SUBQ SCH ×5 (03:31→20:31)
[2020-12-24] MEDS: Ipratropium 1 PUFF INHALER IH SCH ×6 (03:42→23:25)
[2020-12-24 03:50] LABS: Basophils % 0.4 %; Eosinophils % 0.3 %; Immature Granulocytes % 2.8 % (0-4); Lymphocytes # 1.3 K/mcL (0.6-4.6); Lymphocytes % 12.7 %; Mean Corpuscular HGB Conc 28.6 g/dL (31.6-35.5); Mean Corpuscular Hemoglobin 28.4 pg (28.0-33.3); Mean Corpuscular Volume 99.3 fL (83.0-100.0); Mean Platelet Volume 10.8 fL (9.4-12.4); Monocytes # 0.7 K/mcL (0.0-1.3); Monocytes % 7.1 %; Neutrophils # 7.9 K/mcL (1.6-8.9); Nucleated Red Blood Cells 1.4 /100 WBC (0); Platelet Count 508 K/mcL (140-400); Red Blood Count 2.82 M/mcL (4.19-5.50); Red Cell Distribution Width 18.1 % (11.5-14.5); Segmented Neutrophils % 76.7 %; White Blood Count 10.3 K/mcL (4.3-11.1)
[2020-12-24 04:08] LABS: VBG Ionized Calcium 1.37 mmol/L (1.15-1.35)
[2020-12-24 04:26] LABS: Alanine Aminotransferase 19 Units/L (7-52); Albumin 2.7 g/dL (3.5-5.7); Albumin/Globulin Ratio 0.8 (1.1-2.2); Alkaline Phosphatase 66 Units/L (34-104); Aspartate Amino Transferase 16 Units/L (13-39); BUN/Creatinine Ratio 79 (6-26); Bilirubin,Direct 0.1 mg/dL (0.0-0.2); Bilirubin,Indirect 0.3 mg/dL (0.0-1.0); Bilirubin,Total 0.4 mg/dL (0.3-1.0); Blood Urea Nitrogen 50 mg/dL (6-20); Calcium 9.6 mg/dL (8.6-10.3); Carbon Dioxide 42 mEq/L (23-29); Chloride 103 mEq/L (98-107); Globulin 3.4 g/dL (2.4-3.5); Glucose 248 mg/dL (70-105); Magnesium 2.3 mg/dL (1.6-2.6); Osmolality,Calculated 326 (280-300); Phosphorous 3.5 mg/dL (2.7-4.5); Potassium 4.5 mEq/L (3.5-5.1); Sodium 147 mEq/L (136-145); Total Protein 6.1 g/dL (6.4-8.9); eGFR For African Americans > 60 (> 60); eGFR For Non-African Americans > 60 (> 60)
[2020-12-24 04:54] LABS: ABG Base Excess 9 mEq/L (-2 to 3); ABG HCO3 41 mEq/L (21-27); ABG Oxygen Saturation 76 % (95-98); ABG PCO2 109 mmHg (35-45); ABG PH 7.19 pH Units (7.32-7.45); ABG PO2 54 mmHg (85-104); ABG TCO2 45 mEq/L (20-26); Blood Gas VT 450 cc
[2020-12-24] MEDS: Metoclopramide 10 MG/10 ML UD.LIQ GTUBE SCH ×3 (05:36→17:53)
[2020-12-24] MEDS: *HR* Heparin 5,000 UNIT/ML VIAL SQ SCH ×2 (05:36→17:53)
[2020-12-24] MEDS: Cisatracurium 200 MG in 0.9 % Sodium Chloride 180 ML IVC SCH ×3 (06:21→22:24)
[2020-12-24] MEDS: Budesonide/Formoterol 160/4.5 1 PUFF INH IH SCH ×2 (07:49→20:05)
[2020-12-24] MEDS: Docusate Oral Soln 100 MG/10 ML UDC GTUBE SCH ×2 (07:53→20:32)
[2020-12-24] MEDS: Chlorhexidine Rinse 15 ML MOUTHWASH MM SCH ×2 (07:54→20:31)
[2020-12-24] MEDS: Pantoprazole 40 MG VIAL IVP SCH (07:54)
[2020-12-24] MEDS: levoFLOXacin 750 MG/150 ML 750 MG/150 ML BAG IVPB SCH (07:54)
[2020-12-24] MEDS: Cholecalciferol (D-3) 1,000 UNIT (25MCG) TABLET GTUBE SCH (07:54)
[2020-12-24] MEDS: Bisacodyl 10 MG RECTAL SUPPOSITORY RC SCH (07:55)
[2020-12-24] MEDS: Nystatin POWDER 30 GM BOTTLE TP SCH ×2 (08:07→20:32)
[2020-12-24] MEDS: Lacri-Lube 3.5 GM TUBE BOTH EYES SCH ×2 (08:07→20:31)
[2020-12-24] MEDS: FentaNYL (PF) 2,500 MCG/50 ML IV.SOLN IVC SCH (11:23)
[2020-12-24] MEDS: Insulin DETEMIR 100 UNIT/ML X5UNITS SUBQ SCH ×2 (11:25→20:31)
[2020-12-24 14:39] LABS: ABG Base Excess 12 mEq/L (-2 to 3); ABG HCO3 44 mEq/L (21-27); ABG Oxygen Saturation 81 % (95-98); ABG PCO2 126 mmHg (35-45); ABG PH 7.15 pH Units (7.32-7.45); ABG PO2 63 mmHg (85-104); ABG TCO2 48 mEq/L (20-26); Blood Gas Modality ASSIST CONTROL; Blood Gas VT 420 cc
[2020-12-24 20:04] LABS: ABG Base Excess 15 mEq/L (-2 to 3); ABG HCO3 43 mEq/L (21-27); ABG Oxygen Saturation 84 % (95-98); ABG PCO2 84 mmHg (35-45); ABG PH 7.32 pH Units (7.32-7.45); ABG PO2 57 mmHg (85-104); ABG TCO2 46 mEq/L (20-26); Blood Gas VT 500 cc
[2020-12-25] MEDS: Insulin LISPRO 300 UNITS/3 ML VIAL SUBQ SCH ×7 (00:08→23:48)
[2020-12-25] MEDS: FentaNYL (PF) 2,500 MCG/50 ML IV.SOLN IVC SCH ×3 (00:20→23:47)
[2020-12-25] MEDS: Metoclopramide 10 MG/2 ML VIAL IVP SCH ×5 (00:22→23:48)
[2020-12-25] MEDS: Dexmedetomidine HCl 400 MCG/100 ML MLS IVC SCH ×5 (03:35→21:54)
[2020-12-25] MEDS: Cisatracurium 200 MG in 0.9 % Sodium Chloride 180 ML IVC SCH ×4 (03:37→21:16)
[2020-12-25] MEDS: Ipratropium 1 PUFF INHALER IH SCH ×5 (03:43→20:36)
[2020-12-25 03:55] LABS: ABG Base Excess 15 mEq/L (-2 to 3); ABG HCO3 42 mEq/L (21-27); ABG Oxygen Saturation 87 % (95-98); ABG PCO2 72 mmHg (35-45); ABG PH 7.38 pH Units (7.32-7.45); ABG PO2 57 mmHg (85-104); ABG TCO2 45 mEq/L (20-26); Blood Gas VT 500 cc
[2020-12-25 04:49] LABS: VBG Ionized Calcium 1.31 mmol/L (1.15-1.35)
[2020-12-25 04:52] LABS: Basophils % 0.1 %; Eosinophils % 0.5 %; Hematocrit 24.4 % (37.5-50.1); Hemoglobin 6.9 g/dL (12.9-16.9); Immature Granulocytes % 2.2 % (0-4); Lymphocytes # 0.8 K/mcL (0.6-4.6); Lymphocytes % 10.9 %; Mean Corpuscular HGB Conc 28.3 g/dL (31.6-35.5); Mean Corpuscular Hemoglobin 27.9 pg (28.0-33.3); Mean Corpuscular Volume 98.8 fL (83.0-100.0); Mean Platelet Volume 11.5 fL (9.4-12.4); Monocytes # 0.6 K/mcL (0.0-1.3); Monocytes % 7.2 %; Nucleated Red Blood Cells 1.3 /100 WBC (0); Platelet Count 340 K/mcL (140-400); Red Blood Count 2.47 M/mcL (4.19-5.50); Red Cell Distribution Width 18.6 % (11.5-14.5); Segmented Neutrophils % 79.1 %; White Blood Count 7.6 K/mcL (4.3-11.1)
[2020-12-25 05:09] LABS: Alanine Aminotransferase 17 Units/L (7-52); Albumin 2.5 g/dL (3.5-5.7); Albumin/Globulin Ratio 0.8 (1.1-2.2); Alkaline Phosphatase 56 Units/L (34-104); Aspartate Amino Transferase 16 Units/L (13-39); BUN/Creatinine Ratio 76 (6-26); Bilirubin,Direct 0.2 mg/dL (0.0-0.2); Bilirubin,Indirect 0.2 mg/dL (0.0-1.0); Bilirubin,Total 0.4 mg/dL (0.3-1.0); Blood Urea Nitrogen 44 mg/dL (6-20); Calcium 9.2 mg/dL (8.6-10.3); Carbon Dioxide 41 mEq/L (23-29); Chloride 104 mEq/L (98-107); Glucose 198 mg/dL (70-105); Osmolality,Calculated 319 (280-300); Phosphorous 1.8 mg/dL (2.7-4.5); Sodium 146 mEq/L (136-145); Total Protein 5.5 g/dL (6.4-8.9); eGFR For African Americans > 60 (> 60); eGFR For Non-African Americans > 60 (> 60)
[2020-12-25] MEDS: *HR* Heparin 5,000 UNIT/ML VIAL SQ SCH ×2 (06:16→17:23)
[2020-12-25] MEDS: *HR* Dextrose 50 % in Water (Syg) 50 ML SYRINGE IVP PRN (07:33)
[2020-12-25] MEDS: Pantoprazole 40 MG VIAL IVP SCH (07:37)
[2020-12-25] MEDS: Chlorhexidine Rinse 15 ML MOUTHWASH MM SCH ×2 (07:39→20:39)
[2020-12-25] MEDS: Cholecalciferol (D-3) 1,000 UNIT (25MCG) TABLET GTUBE SCH (07:45)
[2020-12-25] MEDS: Docusate Oral Soln 100 MG/10 ML UDC GTUBE SCH ×2 (07:45→20:40)
[2020-12-25] MEDS: Nystatin POWDER 30 GM BOTTLE TP SCH ×2 (07:45→20:40)
[2020-12-25] MEDS: Lacri-Lube 3.5 GM TUBE BOTH EYES SCH ×2 (07:47→20:40)
[2020-12-25] MEDS: Insulin DETEMIR 100 UNIT/ML X5UNITS SUBQ SCH ×2 (07:47→20:40)
[2020-12-25] MEDS: Bisacodyl 10 MG RECTAL SUPPOSITORY RC SCH (07:49)
[2020-12-25] MEDS: levoFLOXacin 750 MG/150 ML 750 MG/150 ML BAG IVPB SCH (08:03)
[2020-12-25] MEDS: Midazolam HCl 50 MG/100 ML IV.SOLN IVC SCH ×2 (08:03→17:08)
[2020-12-25] MEDS: Budesonide/Formoterol 160/4.5 1 PUFF INH IH SCH ×2 (08:07→20:37)
[2020-12-25 09:39] LABS: Hematocrit 25.5 % (37.5-50.1); Hemoglobin 7.1 g/dL (12.9-16.9)
[2020-12-25] MEDS: Acetaminophen 325 MG TABLET PO PRN (11:21)
[2020-12-26] MEDS: Ipratropium 1 PUFF INHALER IH SCH ×7 (00:19→23:24)
[2020-12-26] MEDS: Midazolam HCl 50 MG/100 ML IV.SOLN IVC SCH ×3 (01:45→19:19)
[2020-12-26] MEDS: Dexmedetomidine HCl 400 MCG/100 ML MLS IVC SCH ×6 (01:45→22:46)
[2020-12-26 03:24] LABS: Basophils % 0.2 %; Eosinophils # 0.1 K/mcL (0.0-0.6); Hematocrit 25.4 % (37.5-50.1); Immature Granulocytes % 2.1 % (0-4); Lymphocytes # 0.8 K/mcL (0.6-4.6); Lymphocytes % 12.8 %; Mean Corpuscular HGB Conc 27.6 g/dL (31.6-35.5); Mean Corpuscular Hemoglobin 27.9 pg (28.0-33.3); Mean Corpuscular Volume 101.2 fL (83.0-100.0); Mean Platelet Volume 10.8 fL (9.4-12.4); Monocytes # 0.5 K/mcL (0.0-1.3); Monocytes % 7.4 %; Neutrophils # 4.8 K/mcL (1.6-8.9); Nucleated Red Blood Cells 1.1 /100 WBC (0); Platelet Count 383 K/mcL (140-400); Red Blood Count 2.51 M/mcL (4.19-5.50); Red Cell Distribution Width 19.3 % (11.5-14.5); Segmented Neutrophils % 76.5 %; White Blood Count 6.3 K/mcL (4.3-11.1)
[2020-12-26 03:37] LABS: VBG Ionized Calcium 1.33 mmol/L (1.15-1.35)
[2020-12-26 03:37] LABS: Platelet Estimate Normal (Normal)
[2020-12-26 03:49] LABS: Alanine Aminotransferase 17 Units/L (7-52); Albumin 2.4 g/dL (3.5-5.7); Albumin/Globulin Ratio 0.8 (1.1-2.2); Alkaline Phosphatase 53 Units/L (34-104); Aspartate Amino Transferase 18 Units/L (13-39); BUN/Creatinine Ratio 85 (6-26); Bilirubin,Direct 0.1 mg/dL (0.0-0.2); Bilirubin,Indirect 0.3 mg/dL (0.0-1.0); Bilirubin,Total 0.4 mg/dL (0.3-1.0); Blood Urea Nitrogen 47 mg/dL (6-20); Calcium 9.5 mg/dL (8.6-10.3); Carbon Dioxide 44 mEq/L (23-29); Chloride 105 mEq/L (98-107); Globulin 3.2 g/dL (2.4-3.5); Glucose 148 mg/dL (70-105); Magnesium 2.2 mg/dL (1.6-2.6); Osmolality,Calculated 321 (280-300); Phosphorous 4.3 mg/dL (2.7-4.5); Potassium 4.8 mEq/L (3.5-5.1); Sodium 148 mEq/L (136-145); Total Protein 5.6 g/dL (6.4-8.9); eGFR For African Americans > 60 (> 60); eGFR For Non-African Americans > 60 (> 60)
[2020-12-26 04:39] LABS: ABG Base Excess 15 mEq/L (-2 to 3); ABG HCO3 45 mEq/L (21-27); ABG Oxygen Saturation 90 % (95-98); ABG PCO2 92 mmHg (35-45); ABG PO2 69 mmHg (85-104); ABG TCO2 48 mEq/L (20-26); Blood Gas Modality ASSIST CONTROL; Blood Gas VT 450 cc
[2020-12-26] MEDS: Insulin LISPRO 300 UNITS/3 ML VIAL SUBQ SCH ×5 (05:00→20:08)
[2020-12-26] MEDS: *HR* Heparin 5,000 UNIT/ML VIAL SQ SCH ×2 (05:01→17:04)
[2020-12-26] MEDS: Metoclopramide 10 MG/2 ML VIAL IVP SCH ×3 (05:18→17:05)
[2020-12-26] MEDS: Insulin DETEMIR 100 UNIT/ML X5UNITS SUBQ SCH ×2 (07:10→20:05)
[2020-12-26] MEDS: Docusate Oral Soln 100 MG/10 ML UDC GTUBE SCH ×2 (07:10→20:05)
[2020-12-26] MEDS: Cholecalciferol (D-3) 1,000 UNIT (25MCG) TABLET GTUBE SCH (07:14)
[2020-12-26] MEDS: Cisatracurium 200 MG in 0.9 % Sodium Chloride 180 ML IVC SCH ×4 (07:34→22:46)
[2020-12-26] MEDS: FentaNYL (PF) 2,500 MCG/50 ML IV.SOLN IVC SCH ×2 (07:42→19:20)
[2020-12-26] MEDS: Chlorhexidine Rinse 15 ML MOUTHWASH MM SCH ×2 (07:48→20:06)
[2020-12-26] MEDS: levoFLOXacin 750 MG/150 ML 750 MG/150 ML BAG IVPB SCH (07:48)
[2020-12-26] MEDS: Bisacodyl 10 MG RECTAL SUPPOSITORY RC SCH (07:48)
[2020-12-26] MEDS: Lacri-Lube 3.5 GM TUBE BOTH EYES SCH ×2 (07:48→20:13)
[2020-12-26] MEDS: Pantoprazole 40 MG VIAL IVP SCH (07:48)
[2020-12-26] MEDS: Nystatin POWDER 30 GM BOTTLE TP SCH ×2 (07:49→22:47)
[2020-12-26] MEDS: Budesonide/Formoterol 160/4.5 1 PUFF INH IH SCH ×2 (08:30→19:44)
[2020-12-26] MEDS ORDERED: Furosemide 20 MG/2 ML VIAL IVP ONE (09:42)
[2020-12-26] MEDS ORDERED: 0.9 % Sodium Chloride 250 ML ONE (11:57)
[2020-12-26] MEDS: Acetaminophen 325 MG TABLET PO PRN (12:12)
[2020-12-26] MEDS: Cefepime HCl 1,000 MG in Water for inj. (sterile) 10 ML IVP SCH (15:45)
[2020-12-26] MEDS: Vancomycin 1,500 MG/265 ML IV.SOLN IVPB SCH (17:06)
[2020-12-27] MEDS: Cefepime HCl 1,000 MG in Water for inj. (sterile) 10 ML IVP SCH ×3 (00:14→16:42)
[2020-12-27] MEDS: Metoclopramide 10 MG/2 ML VIAL IVP SCH ×2 (00:15→05:57)
[2020-12-27] MEDS: Insulin LISPRO 300 UNITS/3 ML VIAL SUBQ SCH ×6 (00:15→20:05)
[2020-12-27] MEDS: Dexmedetomidine HCl 400 MCG/100 ML MLS IVC SCH ×5 (02:48→21:22)
[2020-12-27] MEDS: Midazolam HCl 50 MG/100 ML IV.SOLN IVC SCH ×3 (02:49→22:34)
[2020-12-27] MEDS: Vancomycin 1,500 MG/265 ML IV.SOLN IVPB SCH ×2 (02:56→16:50)
[2020-12-27] MEDS: Ipratropium 1 PUFF INHALER IH SCH ×6 (03:07→23:23)
[2020-12-27] MEDS: Cisatracurium 200 MG in 0.9 % Sodium Chloride 180 ML IVC SCH ×4 (04:28→19:39)
[2020-12-27 04:45] LABS: ABG Base Excess 18 mEq/L (-2 to 3); ABG HCO3 49 mEq/L (21-27); ABG Oxygen Saturation 84 % (95-98); ABG PCO2 111 mmHg (35-45); ABG PH 7.26 pH Units (7.32-7.45); ABG PO2 62 mmHg (85-104); ABG TCO2 > 50 mEq/L (20-26); Blood Gas Modality ASSIST CONTROL; Blood Gas VT 450 cc
[2020-12-27 05:22] LABS: Basophils % 0.5 %; Eosinophils % 0.6 %; Hematocrit 31.1 % (37.5-50.1); Hemoglobin 8.6 g/dL (12.9-16.9); INR 1.3; Immature Granulocytes % 1.1 % (0-4); Lymphocytes # 0.8 K/mcL (0.6-4.6); Lymphocytes % 12.7 %; Mean Corpuscular HGB Conc 27.7 g/dL (31.6-35.5); Mean Corpuscular Hemoglobin 27.7 pg (28.0-33.3); Mean Platelet Volume 10.6 fL (9.4-12.4); Monocytes # 0.5 K/mcL (0.0-1.3); Monocytes % 7.3 %; Neutrophils # 5.1 K/mcL (1.6-8.9); Nucleated Red Blood Cells 0.9 /100 WBC (0); Platelet Count 352 K/mcL (140-400); Prothrombin Time 14.3 Seconds (9.4-12.1); Red Blood Count 3.11 M/mcL (4.19-5.50); Red Cell Distribution Width 19.7 % (11.5-14.5); Segmented Neutrophils % 77.8 %; White Blood Count 6.5 K/mcL (4.3-11.1)
[2020-12-27 05:44] LABS: Alanine Aminotransferase 19 Units/L (7-52); Albumin 2.5 g/dL (3.5-5.7); Albumin/Globulin Ratio 0.7 (1.1-2.2); Alkaline Phosphatase 52 Units/L (34-104); Aspartate Amino Transferase 19 Units/L (13-39); BUN/Creatinine Ratio 74 (6-26); Bilirubin,Total 0.4 mg/dL (0.3-1.0); Blood Urea Nitrogen 43 mg/dL (6-20); Calcium 9.1 mg/dL (8.6-10.3); Carbon Dioxide 43 mEq/L (23-29); Chloride 108 mEq/L (98-107); Globulin 3.5 g/dL (2.4-3.5); Glucose 167 mg/dL (70-105); Osmolality,Calculated 329 (280-300); Potassium 4.3 mEq/L (3.5-5.1); Sodium 152 mEq/L (136-145); eGFR For African Americans > 60 (> 60); eGFR For Non-African Americans > 60 (> 60)
[2020-12-27] MEDS: *HR* Heparin 5,000 UNIT/ML VIAL SQ SCH ×2 (05:57→16:52)
[2020-12-27] MEDS: FentaNYL (PF) 2,500 MCG/50 ML IV.SOLN IVC SCH ×2 (06:30→19:39)
[2020-12-27] MEDS: Budesonide/Formoterol 160/4.5 1 PUFF INH IH SCH ×2 (07:27→19:46)
[2020-12-27] MEDS: Chlorhexidine Rinse 15 ML MOUTHWASH MM SCH ×2 (08:43→20:04)
[2020-12-27] MEDS: Docusate Oral Soln 100 MG/10 ML UDC GTUBE SCH ×2 (08:43→21:23)
[2020-12-27] MEDS: Pantoprazole 40 MG VIAL IVP SCH (08:44)
[2020-12-27] MEDS: Insulin DETEMIR 100 UNIT/ML X5UNITS SUBQ SCH ×2 (08:45→20:06)
[2020-12-27] MEDS: Lacri-Lube 3.5 GM TUBE BOTH EYES SCH ×2 (08:48→20:06)
[2020-12-27] MEDS: Cholecalciferol (D-3) 1,000 UNIT (25MCG) TABLET GTUBE SCH (08:48)
[2020-12-27] MEDS: Bisacodyl 10 MG RECTAL SUPPOSITORY RC SCH ×2 (08:48→09:16)
[2020-12-27] MEDS: Nystatin POWDER 30 GM BOTTLE TP SCH (08:48)
[2020-12-27] MEDS ORDERED: Perflutren Lipid Microsphere 1.3 ML in 0.9 % Sodium Chloride 8.7 ML IVP PRN (08:49)
[2020-12-27] MEDS ORDERED: Bisacodyl 10 MG RECTAL SUPPOSITORY RC PRN (15:27)
[2020-12-28] MEDS: Cefepime HCl 1,000 MG in Water for inj. (sterile) 10 ML IVP SCH ×3 (00:44→16:18)
[2020-12-28] MEDS: Dexmedetomidine HCl 400 MCG/100 ML MLS IVC SCH ×5 (01:06→21:47)
[2020-12-28] MEDS: Cisatracurium 200 MG in 0.9 % Sodium Chloride 180 ML IVC SCH ×5 (01:45→21:47)
[2020-12-28] MEDS: Nystatin POWDER 30 GM BOTTLE TP SCH ×3 (02:16→19:47)
[2020-12-28] MEDS: Insulin LISPRO 300 UNITS/3 ML VIAL SUBQ SCH ×6 (02:17→19:48)
[2020-12-28] MEDS: Ipratropium 1 PUFF INHALER IH SCH ×6 (03:28→23:57)
[2020-12-28 03:36] LABS: Mean Platelet Volume 10.6 fL (9.4-12.4)
[2020-12-28 03:37] LABS: Hematocrit 30.2 % (37.5-50.1); Hemoglobin 8.7 g/dL (12.9-16.9); Mean Corpuscular HGB Conc 28.8 g/dL (31.6-35.5); Mean Corpuscular Hemoglobin 28.7 pg (28.0-33.3); Mean Corpuscular Volume 99.7 fL (83.0-100.0); Nucleated Red Blood Cells 0.5 /100 WBC (0); Platelet Count 330 K/mcL (140-400); Red Blood Count 3.03 M/mcL (4.19-5.50); Red Cell Distribution Width 19.2 % (11.5-14.5); White Blood Count 6.3 K/mcL (4.3-11.1)
[2020-12-28 03:48] LABS: INR 1.2; Prothrombin Time 12.9 Seconds (9.4-12.1)
[2020-12-28 04:06] LABS: BUN/Creatinine Ratio 96 (6-26); Blood Urea Nitrogen 45 mg/dL (6-20); Calcium 9.3 mg/dL (8.6-10.3); Carbon Dioxide 42 mEq/L (23-29); Chloride 107 mEq/L (98-107); Glucose 139 mg/dL (70-105); Magnesium 2.3 mg/dL (1.6-2.6); Osmolality,Calculated 322 (280-300); Phosphorous 3.5 mg/dL (2.7-4.5); Potassium 4.5 mEq/L (3.5-5.1); Sodium 149 mEq/L (136-145); eGFR For African Americans > 60 (> 60); eGFR For Non-African Americans > 60 (> 60)
[2020-12-28] MEDS: Vancomycin 1,500 MG/265 ML IV.SOLN IVPB SCH (04:06)
[2020-12-28] MEDS: *HR* Heparin 5,000 UNIT/ML VIAL SQ SCH ×2 (04:07→18:42)
[2020-12-28 04:43] LABS: ABG Base Excess 13 mEq/L (-2 to 3); ABG HCO3 42 mEq/L (21-27); ABG Oxygen Saturation 85 % (95-98); ABG PCO2 92 mmHg (35-45); ABG PH 7.27 pH Units (7.32-7.45); ABG PO2 60 mmHg (85-104); ABG TCO2 45 mEq/L (20-26); Blood Gas VT 450 cc
[2020-12-28 07:16] LABS: Lymphocytes # 0.6 K/mcL (0.6-4.6); Monocytes # 0.6 K/mcL (0.0-1.3); Platelet Estimate Normal (Normal)
[2020-12-28] MEDS: Budesonide/Formoterol 160/4.5 1 PUFF INH IH SCH ×2 (07:45→19:41)
[2020-12-28] MEDS: FentaNYL (PF) 2,500 MCG/50 ML IV.SOLN IVC SCH ×2 (08:00→21:48)
[2020-12-28] MEDS: Pantoprazole 40 MG VIAL IVP SCH (08:39)
[2020-12-28] MEDS: Docusate Oral Soln 100 MG/10 ML UDC GTUBE SCH ×2 (08:42→19:47)
[2020-12-28] MEDS: Chlorhexidine Rinse 15 ML MOUTHWASH MM SCH ×2 (08:51→19:47)
[2020-12-28] MEDS: Insulin DETEMIR 100 UNIT/ML X5UNITS SUBQ SCH ×2 (08:51→19:47)
[2020-12-28] MEDS: Lacri-Lube 3.5 GM TUBE BOTH EYES SCH ×2 (09:00→19:47)
[2020-12-28] MEDS: Midazolam HCl 50 MG/100 ML IV.SOLN IVC SCH ×3 (09:18→21:49)
[2020-12-28] MEDS: Furosemide 40 MG/4 ML VIAL IVP SCH (10:26)
[2020-12-29] MEDS: Insulin LISPRO 300 UNITS/3 ML VIAL SUBQ SCH ×7 (00:17→23:46)
[2020-12-29] MEDS: Cefepime HCl 1,000 MG in Water for inj. (sterile) 10 ML IVP SCH ×4 (00:19→23:37)
[2020-12-29] MEDS: Dexmedetomidine HCl 400 MCG/100 ML MLS IVC SCH ×6 (01:23→23:35)
[2020-12-29] MEDS: Cisatracurium 200 MG in 0.9 % Sodium Chloride 180 ML IVC SCH ×5 (01:53→22:00)
[2020-12-29] MEDS: Ipratropium 1 PUFF INHALER IH SCH ×6 (03:31→23:57)
[2020-12-29] MEDS: *HR* Heparin 5,000 UNIT/ML VIAL SQ SCH ×2 (03:54→17:25)
[2020-12-29 04:08] LABS: Basophils % 0.2 %; Eosinophils # 0.1 K/mcL (0.0-0.6); Eosinophils % 1.7 %; Hematocrit 30.9 % (37.5-50.1); Hemoglobin 8.7 g/dL (12.9-16.9); Immature Granulocytes % 0.7 % (0-4); Lymphocytes # 0.8 K/mcL (0.6-4.6); Lymphocytes % 12.8 %; Mean Corpuscular HGB Conc 28.2 g/dL (31.6-35.5); Mean Corpuscular Hemoglobin 28.4 pg (28.0-33.3); Mean Platelet Volume 10.7 fL (9.4-12.4); Monocytes # 0.3 K/mcL (0.0-1.3); Monocytes % 5.8 %; Nucleated Red Blood Cells 0.3 /100 WBC (0); Platelet Count 313 K/mcL (140-400); Red Blood Count 3.06 M/mcL (4.19-5.50); Red Cell Distribution Width 18.7 % (11.5-14.5); Segmented Neutrophils % 78.8 %; White Blood Count 5.9 K/mcL (4.3-11.1)
[2020-12-29 04:09] LABS: Neutrophils # 4.7 K/mcL (1.6-8.9)
[2020-12-29 04:15] LABS: INR 1.1; Prothrombin Time 12.5 Seconds (9.4-12.1)
[2020-12-29 04:21] LABS: BUN/Creatinine Ratio 102 (6-26); Blood Urea Nitrogen 45 mg/dL (6-20); Calcium 9.4 mg/dL (8.6-10.3); Carbon Dioxide 43 mEq/L (23-29); Chloride 106 mEq/L (98-107); Glucose 143 mg/dL (70-105); Magnesium 2.2 mg/dL (1.6-2.6); Osmolality,Calculated 322 (280-300); Phosphorous 3.5 mg/dL (2.7-4.5); Potassium 4.6 mEq/L (3.5-5.1); Sodium 149 mEq/L (136-145); eGFR For African Americans > 60 (> 60); eGFR For Non-African Americans > 60 (> 60)
[2020-12-29 04:35] LABS: ABG Base Excess 12 mEq/L (-2 to 3); ABG HCO3 42 mEq/L (21-27); ABG Oxygen Saturation 80 % (95-98); ABG PCO2 96 mmHg (35-45); ABG PH 7.25 pH Units (7.32-7.45); ABG PO2 55 mmHg (85-104); ABG TCO2 45 mEq/L (20-26); Blood Gas VT 450 cc
[2020-12-29] MEDS: FentaNYL (PF) 2,500 MCG/50 ML IV.SOLN IVC SCH ×2 (04:50→17:13)
[2020-12-29] MEDS: Midazolam HCl 50 MG/100 ML IV.SOLN IVC SCH ×4 (05:05→19:05)
[2020-12-29 05:08] LABS: Anisocytosis 1+ (Not Present); Microcytosis Present (Not Present); Platelet Estimate Normal (Normal)
[2020-12-29] MEDS: Budesonide/Formoterol 160/4.5 1 PUFF INH IH SCH ×2 (07:29→20:20)
[2020-12-29] MEDS: Insulin DETEMIR 100 UNIT/ML X5UNITS SUBQ SCH ×2 (07:36→21:00)
[2020-12-29] MEDS: Nystatin POWDER 30 GM BOTTLE TP SCH ×2 (07:37→21:00)
[2020-12-29] MEDS: Lacri-Lube 3.5 GM TUBE BOTH EYES SCH ×2 (07:37→20:30)
[2020-12-29] MEDS: Furosemide 40 MG/4 ML VIAL IVP SCH (07:39)
[2020-12-29] MEDS: Pantoprazole 40 MG VIAL IVP SCH (07:40)
[2020-12-29] MEDS: Docusate Oral Soln 100 MG/10 ML UDC GTUBE SCH ×2 (07:41→20:57)
[2020-12-29] MEDS: Chlorhexidine Rinse 15 ML MOUTHWASH MM SCH ×2 (07:41→20:57)
[2020-12-29] MEDS: Sildenafil Citrate 20 MG TABLET PO SCH ×3 (12:52→21:00)
[2020-12-30] MEDS: Midazolam HCl 50 MG/100 ML IV.SOLN IVC SCH ×4 (01:20→21:55)
[2020-12-30] MEDS: Cisatracurium 200 MG in 0.9 % Sodium Chloride 180 ML IVC SCH ×4 (02:30→17:20)
[2020-12-30] MEDS: FentaNYL (PF) 2,500 MCG/50 ML IV.SOLN IVC SCH ×2 (03:45→15:45)
[2020-12-30] MEDS: Dexmedetomidine HCl 400 MCG/100 ML MLS IVC SCH ×5 (03:45→21:50)
[2020-12-30] MEDS: Ipratropium 1 PUFF INHALER IH SCH ×5 (03:47→19:17)
[2020-12-30] MEDS: Insulin LISPRO 300 UNITS/3 ML VIAL SUBQ SCH ×6 (04:00→23:38)
[2020-12-30 04:18] LABS: ABG Base Excess 13 mEq/L (-2 to 3); ABG HCO3 42 mEq/L (21-27); ABG Oxygen Saturation 85 % (95-98); ABG PCO2 90 mmHg (35-45); ABG PH 7.28 pH Units (7.32-7.45); ABG PO2 61 mmHg (85-104); ABG TCO2 45 mEq/L (20-26); Blood Gas VT 450 cc
[2020-12-30 04:19] LABS: Basophils % 0.2 %; Eosinophils # 0.1 K/mcL (0.0-0.6); Eosinophils % 2.2 %; Hematocrit 29.3 % (37.5-50.1); Hemoglobin 8.3 g/dL (12.9-16.9); Immature Granulocytes % 0.6 % (0-4); Lymphocytes # 0.8 K/mcL (0.6-4.6); Lymphocytes % 14.8 %; Mean Corpuscular HGB Conc 28.3 g/dL (31.6-35.5); Mean Corpuscular Hemoglobin 28.6 pg (28.0-33.3); Mean Platelet Volume 10.6 fL (9.4-12.4); Monocytes # 0.4 K/mcL (0.0-1.3); Neutrophils # 4.1 K/mcL (1.6-8.9); Platelet Count 288 K/mcL (140-400); Red Cell Distribution Width 18.7 % (11.5-14.5); Segmented Neutrophils % 75.2 %; White Blood Count 5.4 K/mcL (4.3-11.1)
[2020-12-30 04:23] LABS: INR 1.2
[2020-12-30 04:36] LABS: Hypochromasia Present (Not Present); Stomatocytes 1+ (Not Present)
[2020-12-30 04:37] LABS: Anisocytosis 1+ (Not Present); Platelet Estimate Normal (Normal); Polychromasia 1+ (Not Present)
[2020-12-30 04:38] LABS: BUN/Creatinine Ratio 109 (6-26); Blood Urea Nitrogen 47 mg/dL (6-20); Calcium 9.2 mg/dL (8.6-10.3); Carbon Dioxide 44 mEq/L (23-29); Chloride 104 mEq/L (98-107); Glucose 122 mg/dL (70-105); Magnesium 2.2 mg/dL (1.6-2.6); Osmolality,Calculated 318 (280-300); Phosphorous 3.2 mg/dL (2.7-4.5); Potassium 4.3 mEq/L (3.5-5.1); Sodium 147 mEq/L (136-145); eGFR For African Americans > 60 (> 60); eGFR For Non-African Americans > 60 (> 60)
[2020-12-30] MEDS: *HR* Heparin 5,000 UNIT/ML VIAL SQ SCH ×2 (05:22→17:27)
[2020-12-30] MEDS: Cefepime HCl 1,000 MG in Water for inj. (sterile) 10 ML IVP SCH ×3 (07:42→23:45)
[2020-12-30] MEDS: Pantoprazole 40 MG VIAL IVP SCH (07:46)
[2020-12-30] MEDS: Docusate Oral Soln 100 MG/10 ML UDC GTUBE SCH ×2 (07:52→22:16)
[2020-12-30] MEDS: Sildenafil Citrate 20 MG TABLET PO SCH ×3 (07:52→22:18)
[2020-12-30] MEDS: Chlorhexidine Rinse 15 ML MOUTHWASH MM SCH ×2 (08:01→22:12)
[2020-12-30] MEDS: Insulin DETEMIR 100 UNIT/ML X5UNITS SUBQ SCH ×2 (08:01→22:28)
[2020-12-30] MEDS: Budesonide/Formoterol 160/4.5 1 PUFF INH IH SCH ×2 (08:02→19:18)
[2020-12-30] MEDS: Nystatin POWDER 30 GM BOTTLE TP SCH ×2 (08:02→22:26)
[2020-12-30] MEDS: Lacri-Lube 3.5 GM TUBE BOTH EYES SCH ×2 (08:02→22:20)
[2020-12-30] MEDS: Cisatracurium 400 MG in 0.9 % Sodium Chloride 360 ML IVC SCH (22:24)
[2020-12-31] MEDS: Ipratropium 1 PUFF INHALER IH SCH ×7 (00:16→23:38)
[2020-12-31] MEDS: Dexmedetomidine HCl 400 MCG/100 ML MLS IVC SCH ×5 (02:30→21:05)
[2020-12-31] MEDS: FentaNYL (PF) 2,500 MCG/50 ML IV.SOLN IVC SCH ×3 (02:35→14:45)
[2020-12-31] MEDS: Insulin LISPRO 300 UNITS/3 ML VIAL SUBQ SCH ×6 (03:23→23:58)
[2020-12-31] MEDS: Midazolam HCl 50 MG/100 ML IV.SOLN IVC SCH ×5 (03:23→23:42)
[2020-12-31 04:13] LABS: Immature Granulocytes % 0.9 % (0-4); Mean Corpuscular Volume 100.3 fL (83.0-100.0); Nucleated Red Blood Cells 0.4 /100 WBC (0)
[2020-12-31 04:14] LABS: Basophils % 0.2 %; Eosinophils # 0.1 K/mcL (0.0-0.6); Eosinophils % 2.2 %; Hematocrit 29.8 % (37.5-50.1); Hemoglobin 8.4 g/dL (12.9-16.9); Lymphocytes # 0.8 K/mcL (0.6-4.6); Lymphocytes % 14.6 %; Mean Corpuscular HGB Conc 28.2 g/dL (31.6-35.5); Mean Corpuscular Hemoglobin 28.3 pg (28.0-33.3); Mean Platelet Volume 10.7 fL (9.4-12.4); Monocytes # 0.4 K/mcL (0.0-1.3); Monocytes % 7.2 %; Platelet Count 276 K/mcL (140-400); Red Blood Count 2.97 M/mcL (4.19-5.50); Red Cell Distribution Width 18.9 % (11.5-14.5); Segmented Neutrophils % 74.9 %; White Blood Count 5.5 K/mcL (4.3-11.1)
[2020-12-31 04:18] LABS: Neutrophils # 4.1 K/mcL (1.6-8.9)
[2020-12-31 04:24] LABS: ABG Base Excess 14 mEq/L (-2 to 3); ABG HCO3 44 mEq/L (21-27); ABG Oxygen Saturation 89 % (95-98); ABG PCO2 93 mmHg (35-45); ABG PH 7.28 pH Units (7.32-7.45); ABG PO2 69 mmHg (85-104); ABG TCO2 47 mEq/L (20-26); Blood Gas Modality ASSIST CONTROL; Blood Gas VT 450 cc
[2020-12-31 04:29] LABS: INR 1.1; Prothrombin Time 12.5 Seconds (9.4-12.1)
[2020-12-31 04:33] LABS: BUN/Creatinine Ratio 104 (6-26); Blood Urea Nitrogen 50 mg/dL (6-20); Calcium 9.4 mg/dL (8.6-10.3); Carbon Dioxide 43 mEq/L (23-29); Chloride 104 mEq/L (98-107); Glucose 117 mg/dL (70-105); Magnesium 2.3 mg/dL (1.6-2.6); Osmolality,Calculated 318 (280-300); Phosphorous 3.2 mg/dL (2.7-4.5); Potassium 4.7 mEq/L (3.5-5.1); Sodium 147 mEq/L (136-145); eGFR For African Americans > 60 (> 60); eGFR For Non-African Americans > 60 (> 60)
[2020-12-31 05:19] LABS: Anisocytosis 1+ (Not Present); Hypochromasia Present (Not Present); Platelet Estimate Normal (Normal); Polychromasia 1+ (Not Present)
[2020-12-31] MEDS: *HR* Heparin 5,000 UNIT/ML VIAL SQ SCH ×2 (05:26→17:33)
[2020-12-31] MEDS: Budesonide/Formoterol 160/4.5 1 PUFF INH IH SCH ×2 (07:15→19:26)
[2020-12-31] MEDS: Cisatracurium 400 MG in 0.9 % Sodium Chloride 360 ML IVC SCH ×2 (08:41→18:55)
[2020-12-31] MEDS: Chlorhexidine Rinse 15 ML MOUTHWASH MM SCH ×2 (08:44→20:59)
[2020-12-31] MEDS: Lacri-Lube 3.5 GM TUBE BOTH EYES SCH ×2 (08:44→21:00)
[2020-12-31] MEDS: Insulin DETEMIR 100 UNIT/ML X5UNITS SUBQ SCH ×2 (08:44→21:03)
[2020-12-31] MEDS: Docusate Oral Soln 100 MG/10 ML UDC GTUBE SCH ×2 (08:44→20:59)
[2020-12-31] MEDS: Cefepime HCl 1,000 MG in Water for inj. (sterile) 10 ML IVP SCH ×2 (08:44→15:56)
[2020-12-31] MEDS: Sildenafil Citrate 20 MG TABLET PO SCH ×3 (08:45→21:22)
[2020-12-31] MEDS: Pantoprazole 40 MG VIAL IVP SCH (08:45)
[2020-12-31] MEDS: Nystatin POWDER 30 GM BOTTLE TP SCH ×2 (08:45→21:00)
[2021-01-01] MEDS: Dexmedetomidine HCl 400 MCG/100 ML MLS IVC SCH ×6 (00:14→22:09)
[2021-01-01] MEDS: FentaNYL (PF) 2,500 MCG/50 ML IV.SOLN IVC SCH ×2 (02:31→15:11)
[2021-01-01] MEDS: Cisatracurium 400 MG in 0.9 % Sodium Chloride 360 ML IVC SCH ×3 (03:22→19:50)
[2021-01-01] MEDS: Ipratropium 1 PUFF INHALER IH SCH ×6 (04:00→23:28)
[2021-01-01 04:02] LABS: Nucleated Red Blood Cells 0.6 /100 WBC (0)
[2021-01-01 04:03] LABS: Basophils % 0.1 %; Eosinophils # 0.1 K/mcL (0.0-0.6); Eosinophils % 0.8 %; Hematocrit 29.3 % (37.5-50.1); Hemoglobin 8.1 g/dL (12.9-16.9); Lymphocytes # 0.8 K/mcL (0.6-4.6); Lymphocytes % 11.7 %; Mean Corpuscular HGB Conc 27.6 g/dL (31.6-35.5); Mean Corpuscular Hemoglobin 28.3 pg (28.0-33.3); Mean Corpuscular Volume 102.4 fL (83.0-100.0); Mean Platelet Volume 10.6 fL (9.4-12.4); Monocytes # 0.5 K/mcL (0.0-1.3); Monocytes % 7.1 %; Neutrophils # 5.7 K/mcL (1.6-8.9); Platelet Count 270 K/mcL (140-400); Red Blood Count 2.86 M/mcL (4.19-5.50); Red Cell Distribution Width 18.7 % (11.5-14.5); Segmented Neutrophils % 79.3 %; White Blood Count 7.2 K/mcL (4.3-11.1)
[2021-01-01 04:05] LABS: ABG Base Excess 10 mEq/L (-2 to 3); ABG HCO3 41 mEq/L (21-27); ABG Oxygen Saturation 89 % (95-98); ABG PCO2 102 mmHg (35-45); ABG PH 7.21 pH Units (7.32-7.45); ABG PO2 72 mmHg (85-104); ABG TCO2 44 mEq/L (20-26); Blood Gas Modality AF; Blood Gas VT 450 cc
[2021-01-01 04:16] LABS: INR 1.2; Prothrombin Time 13.1 Seconds (9.4-12.1)
[2021-01-01 04:27] LABS: BUN/Creatinine Ratio 98 (6-26); Blood Urea Nitrogen 58 mg/dL (6-20); Calcium 9.2 mg/dL (8.6-10.3); Carbon Dioxide 40 mEq/L (23-29); Chloride 105 mEq/L (98-107); Glucose 147 mg/dL (70-105); Magnesium 2.4 mg/dL (1.6-2.6); Osmolality,Calculated 321 (280-300); Phosphorous 4.5 mg/dL (2.7-4.5); Potassium 5.5 mEq/L (3.5-5.1); Sodium 146 mEq/L (136-145); eGFR For African Americans > 60 (> 60); eGFR For Non-African Americans > 60 (> 60)
[2021-01-01] MEDS: Insulin LISPRO 300 UNITS/3 ML VIAL SUBQ SCH ×6 (05:10→23:45)
[2021-01-01] MEDS: *HR* Heparin 5,000 UNIT/ML VIAL SQ SCH (05:14)
[2021-01-01] MEDS: Midazolam HCl 50 MG/100 ML IV.SOLN IVC SCH ×3 (05:15→22:10)
[2021-01-01] MEDS: Budesonide/Formoterol 160/4.5 1 PUFF INH IH SCH ×2 (07:13→19:45)
[2021-01-01] MEDS: Chlorhexidine Rinse 15 ML MOUTHWASH MM SCH ×2 (07:30→20:21)
[2021-01-01] MEDS: Cefepime HCl 1,000 MG in Water for inj. (sterile) 10 ML IVP SCH ×2 (07:30)
[2021-01-01] MEDS: Pantoprazole 40 MG VIAL IVP SCH (07:31)
[2021-01-01] MEDS: Sildenafil Citrate 20 MG TABLET PO SCH ×3 (07:31→20:18)
[2021-01-01] MEDS: Docusate Oral Soln 100 MG/10 ML UDC GTUBE SCH ×2 (07:31→20:18)
[2021-01-01] MEDS: Lacri-Lube 3.5 GM TUBE BOTH EYES SCH ×2 (07:32→20:24)
[2021-01-01] MEDS: Nystatin POWDER 30 GM BOTTLE TP SCH ×2 (07:32→20:21)
[2021-01-01] MEDS: Insulin DETEMIR 100 UNIT/ML X5UNITS SUBQ SCH ×2 (07:34→20:23)
[2021-01-01] MEDS ORDERED: *HR* Heparin 5,000 UNIT/ML VIAL IVP PRN ×2 (11:05)
[2021-01-01] MEDS ORDERED: Heparin 25,000UNIT/250ML 1/2NS 25,000 UNIT/250 ML IV.SOLN IVC SCH (11:15)
[2021-01-01] MEDS: Albumin 25% 25gram/100mL 25 GM/100 ML IV.SOLN IVPB SCH ×3 (13:02→23:50)
[2021-01-01] MEDS: Furosemide 20 MG/2 ML VIAL IVP SCH ×3 (13:02→20:18)
[2021-01-01] MEDS: *HR* Alteplase (Cathflo) 2 MG VIAL IVP PRN (14:24)
[2021-01-01 18:41] LABS: Heparin anti-factor XA UFH 0.27 IU/mL (0.30-0.70); INR 1.3
[2021-01-01 18:46] LABS: BUN/Creatinine Ratio 89 (6-26); Blood Urea Nitrogen 58 mg/dL (6-20); Calcium 7.6 mg/dL (8.6-10.3); Carbon Dioxide 32 mEq/L (23-29); Chloride 100 mEq/L (98-107); Glucose 250 mg/dL (70-105); Osmolality,Calculated 315 (280-300); Potassium 4.2 mEq/L (3.5-5.1); Sodium 140 mEq/L (136-145); eGFR For African Americans > 60 (> 60); eGFR For Non-African Americans > 60 (> 60)
[2021-01-01 19:34] LABS: Red Blood Count 2.49 M/mcL (4.19-5.50)
[2021-01-01 19:35] LABS: Hematocrit 25.7 % (37.5-50.1); Mean Corpuscular HGB Conc 27.2 g/dL (31.6-35.5); Mean Corpuscular Hemoglobin 28.1 pg (28.0-33.3); Mean Corpuscular Volume 103.2 fL (83.0-100.0); Platelet Count 235 K/mcL (140-400); Red Cell Distribution Width 19.1 % (11.5-14.5); White Blood Count 6.3 K/mcL (4.3-11.1)
[2021-01-01] MEDS ORDERED: 0.9 % Sodium Chloride 250 ML ONE (22:25)
[2021-01-02] MEDS: Dexmedetomidine HCl 400 MCG/100 ML MLS IVC SCH ×5 (02:55→20:32)
[2021-01-02] MEDS: Ipratropium 1 PUFF INHALER IH SCH ×6 (04:06→23:28)
[2021-01-02] MEDS: FentaNYL (PF) 2,500 MCG/50 ML IV.SOLN IVC SCH ×3 (04:18→22:50)
[2021-01-02] MEDS: Midazolam HCl 50 MG/100 ML IV.SOLN IVC SCH ×4 (04:19→23:43)
[2021-01-02] MEDS: Insulin LISPRO 300 UNITS/3 ML VIAL SUBQ SCH ×6 (04:20→23:24)
[2021-01-02] MEDS: Cisatracurium 400 MG in 0.9 % Sodium Chloride 360 ML IVC SCH ×3 (04:22→20:00)
[2021-01-02 04:25] LABS: ABG Base Excess 10 mEq/L (-2 to 3); ABG HCO3 41 mEq/L (21-27); ABG Oxygen Saturation 81 % (95-98); ABG PCO2 108 mmHg (35-45); ABG PH 7.19 pH Units (7.32-7.45); ABG PO2 61 mmHg (85-104); ABG TCO2 44 mEq/L (20-26); Blood Gas Modality ASSIST CONTROL; Blood Gas VT 450 cc
[2021-01-02 04:54] LABS: Nucleated Red Blood Cells 0.4 /100 WBC (0); Red Cell Distribution Width 18.6 % (11.5-14.5)
[2021-01-02 04:55] LABS: Eosinophils % 1.1 %; Hematocrit 25.7 % (37.5-50.1); Hemoglobin 6.9 g/dL (12.9-16.9); Immature Granulocytes % 1.9 % (0-4); Lymphocytes # 0.6 K/mcL (0.6-4.6); Lymphocytes % 10.8 %; Mean Corpuscular HGB Conc 26.8 g/dL (31.6-35.5); Mean Corpuscular Hemoglobin 27.6 pg (28.0-33.3); Mean Corpuscular Volume 102.8 fL (83.0-100.0); Mean Platelet Volume 11.4 fL (9.4-12.4); Monocytes % 6.3 %; Platelet Count 139 K/mcL (140-400); Segmented Neutrophils % 79.5 %; White Blood Count 5.3 K/mcL (4.3-11.1)
[2021-01-02 04:56] LABS: Basophils % 0.4 %; Eosinophils # 0.1 K/mcL (0.0-0.6); Monocytes # 0.3 K/mcL (0.0-1.3); Neutrophils # 4.2 K/mcL (1.6-8.9)
[2021-01-02 05:02] LABS: INR 1.2; Prothrombin Time 13.4 Seconds (9.4-12.1)
[2021-01-02 05:17] LABS: Albumin 2.7 g/dL (3.5-5.7); Globulin 2.7 g/dL (2.4-3.5); Hypochromasia Present (Not Present); Platelet Estimate Normal (Normal); Poikilocytosis 1+ (Not Present); Total Protein 5.4 g/dL (6.4-8.9)
[2021-01-02] MEDS: Sildenafil Citrate 20 MG TABLET PO SCH ×3 (07:07→19:34)
[2021-01-02] MEDS: Docusate Oral Soln 100 MG/10 ML UDC GTUBE SCH ×2 (07:08→19:34)
[2021-01-02] MEDS: Pantoprazole 40 MG VIAL IVP SCH (07:08)
[2021-01-02] MEDS: Chlorhexidine Rinse 15 ML MOUTHWASH MM SCH ×2 (07:08→19:34)
[2021-01-02] MEDS: Nystatin POWDER 30 GM BOTTLE TP SCH ×2 (07:09→19:35)
[2021-01-02] MEDS: Lacri-Lube 3.5 GM TUBE BOTH EYES SCH ×2 (07:09→19:35)
[2021-01-02] MEDS: Insulin DETEMIR 100 UNIT/ML X5UNITS SUBQ SCH ×2 (07:12→20:33)
[2021-01-02] MEDS: Budesonide/Formoterol 160/4.5 1 PUFF INH IH SCH ×2 (07:28→19:43)
[2021-01-02] MEDS ORDERED: 0.9 % Sodium Chloride 250 ML ONE (08:32)
[2021-01-02 12:38] LABS: Hematocrit 27.8 % (37.5-50.1); Hemoglobin 7.6 g/dL (12.9-16.9)
[2021-01-02 12:56] LABS: BUN/Creatinine Ratio 90 (6-26); Blood Urea Nitrogen 66 mg/dL (6-20); Calcium 7.8 mg/dL (8.6-10.3); Carbon Dioxide 33 mEq/L (23-29); Chloride 102 mEq/L (98-107); Glucose 247 mg/dL (70-105); Magnesium 2.1 mg/dL (1.6-2.6); Osmolality,Calculated 311 (280-300); Potassium 4.4 mEq/L (3.5-5.1); Sodium 137 mEq/L (136-145); eGFR For African Americans > 60 (> 60); eGFR For Non-African Americans > 60 (> 60)
[2021-01-02 17:24] LABS: ABG Base Excess 7 mEq/L (-2 to 3); ABG HCO3 36 mEq/L (21-27); ABG Oxygen Saturation 71 % (95-98); ABG PCO2 88 mmHg (35-45); ABG PH 7.23 pH Units (7.32-7.45); ABG PO2 47 mmHg (85-104); ABG TCO2 39 mEq/L (20-26); Blood Gas Modality ASSIST CONTROL; Blood Gas VT 450 cc
[2021-01-02] MEDS ORDERED: Bisacodyl 10 MG RECTAL SUPPOSITORY RC ONE (21:00)
[2021-01-03 00:38] LABS: Hematocrit 28.7 % (37.5-50.1); Hemoglobin 8.1 g/dL (12.9-16.9)
[2021-01-03] MEDS: Dexmedetomidine HCl 400 MCG/100 ML MLS IVC SCH ×6 (01:04→23:18)
[2021-01-03] MEDS: Ipratropium 1 PUFF INHALER IH SCH ×6 (03:46→23:31)
[2021-01-03] MEDS: Insulin LISPRO 300 UNITS/3 ML VIAL SUBQ SCH ×6 (03:58→23:02)
[2021-01-03 04:20] LABS: ABG Base Excess 9 mEq/L (-2 to 3); ABG HCO3 40 mEq/L (21-27); ABG Oxygen Saturation 76 % (95-98); ABG PCO2 96 mmHg (35-45); ABG PH 7.23 pH Units (7.32-7.45); ABG PO2 52 mmHg (85-104); ABG TCO2 43 mEq/L (20-26); Blood Gas VT 450 cc
[2021-01-03 05:17] LABS: Hematocrit 29.1 % (37.5-50.1); Hemoglobin 8.2 g/dL (12.9-16.9)
[2021-01-03] MEDS: Midazolam HCl 50 MG/100 ML IV.SOLN IVC SCH ×4 (06:25→20:30)
[2021-01-03] MEDS: Budesonide/Formoterol 160/4.5 1 PUFF INH IH SCH ×2 (07:13→19:38)
[2021-01-03] MEDS: Docusate Oral Soln 100 MG/10 ML UDC GTUBE SCH ×2 (07:56→20:46)
[2021-01-03] MEDS: Pantoprazole 40 MG VIAL IVP SCH (07:56)
[2021-01-03] MEDS: Chlorhexidine Rinse 15 ML MOUTHWASH MM SCH ×2 (07:57→20:40)
[2021-01-03] MEDS: Lacri-Lube 3.5 GM TUBE BOTH EYES SCH ×2 (07:57→20:33)
[2021-01-03] MEDS: Insulin DETEMIR 100 UNIT/ML X5UNITS SUBQ SCH ×2 (07:57→20:30)
[2021-01-03] MEDS: Nystatin POWDER 30 GM BOTTLE TP SCH ×2 (07:58→20:33)
[2021-01-03 08:53] LABS: Basophils % 0.2 %; Nucleated Red Blood Cells 0.5 /100 WBC (0)
[2021-01-03 08:53] LABS: VBG Ionized Calcium 1.32 mmol/L (1.15-1.35)
[2021-01-03 08:54] LABS: Eosinophils # 0.1 K/mcL (0.0-0.6); Hematocrit 31.6 % (37.5-50.1); Hemoglobin 8.9 g/dL (12.9-16.9); Immature Granulocytes % 1.5 % (0-4); Lymphocytes # 0.8 K/mcL (0.6-4.6); Lymphocytes % 13.5 %; Mean Corpuscular HGB Conc 28.2 g/dL (31.6-35.5); Mean Corpuscular Hemoglobin 28.3 pg (28.0-33.3); Mean Corpuscular Volume 100.6 fL (83.0-100.0); Mean Platelet Volume 10.8 fL (9.4-12.4); Monocytes # 0.5 K/mcL (0.0-1.3); Monocytes % 8.1 %; Neutrophils # 4.7 K/mcL (1.6-8.9); Platelet Count 232 K/mcL (140-400); Red Blood Count 3.14 M/mcL (4.19-5.50); Red Cell Distribution Width 18.4 % (11.5-14.5); Segmented Neutrophils % 75.7 %; White Blood Count 6.2 K/mcL (4.3-11.1)
[2021-01-03 09:13] LABS: Alanine Aminotransferase 15 Units/L (7-52); Albumin 2.9 g/dL (3.5-5.7); Albumin/Globulin Ratio 0.9 (1.1-2.2); Alkaline Phosphatase 69 Units/L (34-104); Aspartate Amino Transferase 13 Units/L (13-39); BUN/Creatinine Ratio 91 (6-26); Bilirubin,Total 0.5 mg/dL (0.3-1.0); Blood Urea Nitrogen 87 mg/dL (6-20); Calcium 9.1 mg/dL (8.6-10.3); Carbon Dioxide 38 mEq/L (23-29); Chloride 101 mEq/L (98-107); Globulin 3.3 g/dL (2.4-3.5); Glucose 115 mg/dL (70-105); Magnesium 2.5 mg/dL (1.6-2.6); Osmolality,Calculated 317 (280-300); Phosphorous 4.5 mg/dL (2.7-4.5); Potassium 5.5 mEq/L (3.5-5.1); Sodium 140 mEq/L (136-145); Total Protein 6.2 g/dL (6.4-8.9); eGFR For African Americans > 60 (> 60); eGFR For Non-African Americans > 60 (> 60)
[2021-01-03 09:21] LABS: Anisocytosis 1+ (Not Present); Platelet Estimate Normal (Normal); Polychromasia 1+ (Not Present); Stomatocytes 2+ (Not Present)
[2021-01-03] MEDS: FentaNYL (PF) 2,500 MCG/50 ML IV.SOLN IVC SCH ×2 (10:42→22:15)
[2021-01-03] MEDS: Cisatracurium 400 MG in 0.9 % Sodium Chloride 360 ML IVC SCH ×2 (10:44→19:15)
[2021-01-03] MEDS: *HR* Heparin 5,000 UNIT/ML VIAL SQ SCH (18:20)
[2021-01-03 21:57] LABS: ABG Base Excess 7 mEq/L (-2 to 3); ABG HCO3 36 mEq/L (21-27); ABG Oxygen Saturation 81 % (95-98); ABG PCO2 86 mmHg (35-45); ABG PH 7.24 pH Units (7.32-7.45); ABG PO2 57 mmHg (85-104); ABG TCO2 39 mEq/L (20-26); Blood Gas VT 450 cc
[2021-01-03 22:39] LABS: Hematocrit 30.5 % (37.5-50.1); Hemoglobin 8.7 g/dL (12.9-16.9)
[2021-01-03] MEDS: *HR* Dextrose 50 % in Water (Syg) 50 ML SYRINGE IVP PRN (23:02)
[2021-01-03] MEDS ORDERED: *HR* Dextrose 50 % in Water (Syg) 50 ML SYRINGE IVP PRN (23:16)
[2021-01-04] MEDS: Midazolam HCl 50 MG/100 ML IV.SOLN IVC SCH ×2 (02:45→10:00)
[2021-01-04] MEDS: Cisatracurium 400 MG in 0.9 % Sodium Chloride 360 ML IVC SCH ×2 (02:45→10:37)
[2021-01-04] MEDS: Ipratropium 1 PUFF INHALER IH SCH ×4 (03:21→15:28)
[2021-01-04] MEDS: Insulin LISPRO 300 UNITS/3 ML VIAL SUBQ SCH ×3 (03:28→12:45)
[2021-01-04] MEDS: Dexmedetomidine HCl 400 MCG/100 ML MLS IVC SCH ×4 (04:10→17:41)
[2021-01-04 04:24] LABS: Basophils % 0.4 %; Eosinophils # 0.1 K/mcL (0.0-0.6); Eosinophils % 1.3 %; Hematocrit 31.2 % (37.5-50.1); Hemoglobin 9.1 g/dL (12.9-16.9); Immature Granulocytes % 1.1 % (0-4); Lymphocytes # 0.9 K/mcL (0.6-4.6); Lymphocytes % 17.4 %; Mean Corpuscular HGB Conc 29.2 g/dL (31.6-35.5); Mean Corpuscular Hemoglobin 29.1 pg (28.0-33.3); Mean Corpuscular Volume 99.7 fL (83.0-100.0); Mean Platelet Volume 10.6 fL (9.4-12.4); Monocytes # 0.4 K/mcL (0.0-1.3); Monocytes % 7.9 %; Neutrophils # 3.8 K/mcL (1.6-8.9); Nucleated Red Blood Cells 0.6 /100 WBC (0); Platelet Count 236 K/mcL (140-400); Red Blood Count 3.13 M/mcL (4.19-5.50); Red Cell Distribution Width 18.1 % (11.5-14.5); Segmented Neutrophils % 71.9 %; White Blood Count 5.3 K/mcL (4.3-11.1)
[2021-01-04 04:37] LABS: ABG Base Excess 8 mEq/L (-2 to 3); ABG HCO3 36 mEq/L (21-27); ABG Oxygen Saturation 80 % (95-98); ABG PCO2 73 mmHg (35-45); ABG PO2 51 mmHg (85-104); ABG TCO2 38 mEq/L (20-26); Blood Gas VT 450 cc
[2021-01-04 04:41] LABS: VBG Ionized Calcium 1.19 mmol/L (1.15-1.35)
[2021-01-04 05:32] LABS: Alanine Aminotransferase 14 Units/L (7-52); Albumin 2.7 g/dL (3.5-5.7); Albumin/Globulin Ratio 0.8 (1.1-2.2); Alkaline Phosphatase 67 Units/L (34-104); Aspartate Amino Transferase 14 Units/L (13-39); BUN/Creatinine Ratio 89 (6-26); Bilirubin,Total 0.6 mg/dL (0.3-1.0); Blood Urea Nitrogen 91 mg/dL (6-20); Carbon Dioxide 33 mEq/L (23-29); Chloride 102 mEq/L (98-107); Globulin 3.4 g/dL (2.4-3.5); Glucose 105 mg/dL (70-105); Magnesium 2.5 mg/dL (1.6-2.6); Osmolality,Calculated 320 (280-300); Potassium 5.1 mEq/L (3.5-5.1); Sodium 141 mEq/L (136-145); Total Protein 6.1 g/dL (6.4-8.9); eGFR For African Americans > 60 (> 60); eGFR For Non-African Americans > 60 (> 60)
[2021-01-04] MEDS: *HR* Heparin 5,000 UNIT/ML VIAL SQ SCH (05:58)
[2021-01-04] MEDS: Budesonide/Formoterol 160/4.5 1 PUFF INH IH SCH (07:16)
[2021-01-04] MEDS: Lacri-Lube 3.5 GM TUBE BOTH EYES SCH (08:02)
[2021-01-04] MEDS: Docusate Oral Soln 100 MG/10 ML UDC GTUBE SCH (08:02)
[2021-01-04] MEDS: Pantoprazole 40 MG VIAL IVP SCH (08:02)
[2021-01-04] MEDS: Chlorhexidine Rinse 15 ML MOUTHWASH MM SCH (08:02)
[2021-01-04] MEDS: Nystatin POWDER 30 GM BOTTLE TP SCH (10:27)
[2021-01-04] MEDS: FentaNYL (PF) 2,500 MCG/50 ML IV.SOLN IVC SCH (10:45)
[2021-01-04] MEDS ORDERED: *HR* LORazepam 2 MG/ML VIAL IVP PRN (14:48)
[2021-01-04] MEDS ORDERED: Morphine Sulfate 2 MG/ML SYRINGE IVP PRN (15:31)
[2021-01-04 16:12] VITALS: BP 150/73; TEMP 98.4
[2021-01-04 17:35] VITALS: PULSE 110; O2SAT 84
== END 2021-01-04 18:14 | disposition expired | DRG 870 ==
LOC: 2ANU 14:30 → SUATTDRO 14:30 → 2NENU 11-21 22:40 → 2NNU 11-30 01:09 → ICNU 12-03 11:25
PROVIDERS: ADMIT Internal Medicine; ATTEND Family Medicine